=== PATIENT | male | born 1980 | race Caucasian/White ===

== ENCOUNTER 2016-09-02 11:42 | Inpatient (IN) | payer OTHER ==
[2016-09-02 13:14] VITALS: BMI 25.1
--- NOTE | 2016-09-02 15:00 | HP ---
COWS - Scale Resting Pulse: 1= [place] 81-100 Sweatin=Flushed/Facial Moisture Restless Observation: 3= Extraneous Movement Pupil Size: 2= Moderately Dilated Bone or Joint Aches: 2= Severe Diffuse Aches Runny Nose/ Eye Tearin= Runny Nose/Eyes GI Upset > 30mins: 3= Vomiting/Diarrhea Tremor Observation: 2= Slight Tremor Visible Yawning Observation: 2= >3x During Session Anxiety or Irritability: 2=Irritable/Anxious Goose Flesh Skin: 0=Smooth Skin COWS Score: 21 CIWA Score - CIWA Score Nausea/Vomitin Muscle Tremors: 3 Anxiety: 3 Agitation: 3 Paroxysmal Sweats: 2 Orientation: 0-Oriented Tacttile Disturbances: 2-Mild Itch/Numbness/Burn Auditory Disturbances: 2-Mild Harshness/Frighten Visual Disturbances: 2-Mild Sensitivity Headache: 2-Mild CIWA-Ar Total Score: 22 Admission ROS BHS - HPI Chief Complaint: i need help to stop using drugs heroin,cocaine,marijuana depenence and alcohol dependence Allergies/Adverse Reactions: Allergies Allergy/AdvReac Type Severity Reaction Status Date / Time venom-honey bee Allergy Severe Verified 09/02/16 14:48 [bee venom (honey bee)] No Known Drug Allergies Allergy Verified 09/02/16 14:48 bee stings Allergy Severe Uncoded 09/02/16 14:48 History of Present Illness: this 35 years old male with heroin,cocaine,marijuana,xanax dependence and chronic alcoholism,withdrawal symptom,last detox [facility] 07/07 several admissions in detox [place] relapsing bipolar disorder,adhd, low back pain hepatitis c treated weight loss longest period of sobriety 6 years Exam Limitations: No Limitations - Ebola screening Have you traveled outside of the country in the last 21 days: No Have you had contact with anyone from an Ebola affected area: No Have you been sick,other than usual withdrawal symptoms: No Do you have a fever: No - Review of Systems Constitutional: Chills, Diaphoresis, Loss of Appetite, Malaise, Night Sweats, Changes in sleep, Weakness, Unintentional Wgt. Loss EENT: reports: Hearing Loss, Nose Congestion Respiratory: reports: No Symptoms reported Cardiac: reports: Palpitations GI: reports: Diarrhea, Nausea, Vomiting, Abdominal cramping : reports: No Symptoms Reported Integumentary: reports: Dryness Neuro: reports: Headache, Tremors Endocrine: reports: No Symptoms Reported Hematology: reports: No Symptoms Reported Psychiatric: reports: Depressed, other (bipolar disorder) Patient History - Patient Medical History Hx Anemia: No Hx Asthma: No Hx Chronic Obstructive Pulmonary Disease (COPD): No Hx Cancer: No Hx Cardiac Disorders: No Hx Congestive Heart Failure: No Hx Hypertension: No Hx Hypercholesterolemia: No Hx Pacemaker: No HX Cerebrovascular Accident: No Hx Seizures: Yes (drug related - last 2015) Hx Dementia: No Hx Diabetes: No Hx Gastrointestinal Disorders: No Hx Liver Disease: No Hx Genitourinary Disorders: No Hx Sexually Transmitted Disorders: No Hx Renal Disease (ESRD): No Hx Thyroid Disease: No Hx Human Immunodeficiency Virus (HIV): No (NEGATIVE HX last 07/07) Hx Hepatitis C: Yes (treated - undetectable vl) Hx Depression: Yes (hospitalized as child) Hx Suicide Attempt: No Hx Bipolar Disorder: Yes Hx Schizophrenia: No Other Medical History: no suicidal,no homicidal - Patient Surgical History Past Surgical History: No Hx Neurologic Surgery: No Hx Cataract Extraction: No Hx Cardiac Surgery: No Hx Lung Surgery: No Hx Breast Surgery: No Hx Breast Biopsy: No Hx Abdominal Surgery: No Hx Appendectomy: No Hx Cholecystectomy: No Hx Genitourinary Surgery: No Hx Section: No Hx Orthopedic Surgery: No Other Surgical History: Sx for abscess Drainage + TISSUE REMOVAL R hand in 04/04 Anesthesia Reaction: No - PPD History Previous Implant?: Yes Documented Results: Negative w/o proof Implanted On Prior [facility] Admission?: Yes Date: 07/14/15 Results: 0 MM PPD to be Administered?: Yes - Smoking Cessation Smoking history: Current every day smoker Have you smoked in the past 12 months: Yes Aproximately how many cigarettes per day: 20 Cigars Per Day: 0 Hx Chewing Tobacco Use: No Initiated information on smoking cessation: Yes 'Breaking Loose' booklet given: 09/02/16 - Substance & Tx. History Hx Alcohol Use: Yes Hx Substance Use: Yes Substance Use Type: Alcohol, Cocaine, Heroin, Marijuana, Tranquilizers Hx Substance Use Treatment: Yes ([facility] 07/07) - Substances Abused Heroin Route: Injection Frequency: Daily Amount used: 30 BAGS Age of first use: 16 Date of Last Use: 09/02/16 Alcohol Route: Oral Frequency: Daily Amount used: 6-15 BEERS Age of first use: 6 Date of Last Use: 09/02/16 Cocaine Route: Injection Frequency: 3-6 times per week Amount used: $100 Age of first use: 11 Date of Last Use: 09/01/16 Marijuana/Hashish Route: Smoking Frequency: 1-3 times last 30 days Amount used: $40 Age of first use: 8 Date of Last Use: 08/19/16 Alprazolam (Xanax) Route: Oral Frequency: 3-6 times per week Amount used: 4-6mg Age of first use: 15 Date of Last Use: 08/31/16 Family Disease History - Family Disease History Family Disease History: Heart Disease: Mother (hx CVA - alive), Other: Mother Admission Physical Exam S - Vital Signs Vital Signs: Vital Signs - 24 hr 09/02/16 13:11 Temperature 97.9 F Pulse Rate 85 Respiratory 18 Rate Blood Pressure 122/76 - Physical General Appearance: Yes: Moderate Distress, Tremorous, Irritable, Sweating, Anxious HEENTM: Yes: Hearing grossly Normal, Normal ENT Inspection, Pharynx Normal, Nasal Congestion Respiratory: Yes: Lungs Clear, Normal Breath Sounds, No Respiratory Distress Neck: Yes: Within Normal Limits, Supple, Trachea in good position Breast: Yes: Within Normal Limits Cardiology: Yes: Within Normal Limits, Regular Rhythm, Regular Rate, S1, S2 Abdominal: Yes: Within Normal Limits, Normal Bowel Sounds, Non Tender, Flat, Soft Genitourinary: Yes: Within Normal Limits Back: Yes: Normal Inspection, Muscle Spasm Musculoskeletal: Yes: Back pain, Joint Stiffness, Muscle Pain, Muscle weakness Extremities: Yes: Within Normal Limits, Normal Capillary Refill, Normal Inspection, Normal Range of Motion, Tremors 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: Yes: grease maker head II-XII NML intact, Fully Oriented, Alert, Motor Strength 5/5 Integumentary: Yes: Dry, Track Swenson Lymphatic: Yes: Within Normal Limits - Diagnostic (1) Cannabis dependence Current Visit: No Status: Acute (2) Cocaine dependence Current Visit: No Status: Acute Qualifiers: Substance use status: uncomplicated Qualified Code(s): F14.20 - Cocaine dependence, uncomplicated (3) Opioid dependence with withdrawal Current Visit: No Status: Acute (4) Chronic back pain Current Visit: No Status: Chronic Qualifiers: Back pain location: low back pain Sciatica presence: without sciatica (5) Hepatitis C Current Visit: No Status: Chronic Qualifiers: Viral hepatitis chronicity: chronic Hepatic coma status: without hepatic coma Qualified Code(s): B18.2 - Chronic viral hepatitis C Comment: completed treatment (6) ADHD (attention deficit hyperactivity disorder) Current Visit: No Status: Suspected Qualifiers: Attention deficit-hyperactivity disorder type: other Qualified Code(s) : F90.8 - Attention-deficit hyperactivity disorder, other type (7) Bipolar disorder Current Visit: No Status: Suspected (8) Weight decreased Current Visit: Yes Status: Acute Cleared for Admission S - Detox or Rehab [facility] Level of Care: Medically Managed Detox Regimen/Protocol: Methadone/Librium S Breath Alcohol Content Breath Alcohol Content: 0 Urine Drug Screen - Results Drug Screen Negative: No Urine Drug Screen Results: RENAE-Cocaine, OPI-Opiates, TCA-Tricyclic Antidepress
[2016-09-02] MEDS ORDERED: chlordiazePOXIDE HCL 25 MG CAPSULE PO PRN (15:14)
[2016-09-02] MEDS ORDERED: MAGNESIUM HYDROX 2400MG/30ML ORAL SUSPENSION 30 ML CUP PO PRN (15:15)
[2016-09-02] MEDS ORDERED: LOPERAMIDE HCL 2 MG CAPSULE PO PRN (15:15)
[2016-09-02] MEDS ORDERED: P-EPHED 60MG/TRIPROLIDI 2.5MG TABLET PO PRN (15:15)
[2016-09-02] MEDS ORDERED: hydrOXYzine PAMOATE 50 MG CAPSULE (FP) PO PRN (15:15)
[2016-09-02] MEDS ORDERED: ACETAMINOPHEN 325 MG TABLET (FP) PO PRN (15:15)
[2016-09-02] MEDS ORDERED: guaiFENesin/D-METHORPHAN HB 10 ML UNIT-DOSE CUPS PO PRN (15:15)
[2016-09-02] MEDS ORDERED: MAGNESIUM CITRATE 300 ML BOTTLE PO PRN (15:15)
[2016-09-02] MEDS ORDERED: MAG HYDROX/AL HYDROX/SIMETH 30 ML UNIT-DOSE CUP PO PRN (15:15)
[2016-09-02] MEDS ORDERED: diphenhydrAMINE HCL 50 MG CAPSULE PO PRN (15:15)
[2016-09-02] MEDS ORDERED: MENTHOL/PHENOL 1 EACH UD MM PRN (15:15)
[2016-09-02] MEDS ORDERED: IBUPROFEN 400 MG TABLET (FP) PO PRN (15:15)
[2016-09-02] MEDS ORDERED: chlordiazePOXIDE HCL 25 MG CAPSULE PO ONE (16:30)
[2016-09-02] MEDS ORDERED: METHADONE HCL 10 MG TABLET (FOR DETOX USE ONLY) PO ONE ×2 (16:30→23:00)
[2016-09-02] MEDS: chlordiazePOXIDE HCL 25 MG CAPSULE PO SCH ×2 (16:59→23:16)
[2016-09-02 18:38] LABS: URINE APPEARANCE CLEAR; URINE BILIRUBIN NEGATIVE (NEGATIVE); URINE BLOOD NEGATIVE (NEGATIVE); URINE COLOR DKYELLOW; URINE GLUCOSE (UA) NEGATIVE (NEGATIVE); URINE KETONE TRACE (NEGATIVE); URINE LEUK ESTERASE NEGATIVE (NEGATIVE); URINE NITRITE NEGATIVE (NEGATIVE); URINE UROBILINOGEN 2.0 E.U/dl E.U./dl (0.2-1.0)
[2016-09-02 18:40] LABS: URINE PROTEIN 1+ (NEGATIVE)
[2016-09-02 18:45] LABS: URINE HYALINE CAST 7 /lpf; URINE MUCUS MANY; URINE RBC 1 /hpf (0-3); URINE WBC 1 /hpf (3-5)
[2016-09-02] MEDS: cloNIDine HCL 0.1 MG TABLET PO SCH (22:55)
[2016-09-02] MEDS: THIAMINE HCL 100 MG TABLET (FP) PO SCH (22:55)
[2016-09-03] MEDS: chlordiazePOXIDE HCL 25 MG CAPSULE PO SCH ×4 (05:46→22:53)
--- NOTE | 2016-09-03 08:47 | CONSULT ---
[facility] Psychiatric Consult - Data Date of interview: 09/03/16 Admission source: [facility] Identifying data: This is 35 years old female with history of Bipolar disorder, history of psychuatric admission, intoxicated with: Alcohol, Cannabus,m Opioids , Cocaine,m Xanax and PCP abuse history Substance Abuse History: - Smoking Cessation. Smoking history: Current every day smoker. Have you smoked in the past 12 months: Yes. Aproximately how many cigarettes per day: 20. Cigars Per Day: 0. Hx Chewing Tobacco Use: No. Initiated information on smoking cessation: Yes. 'Breaking Loose' booklet given : 09/02/16. - Substance & Tx. History. Hx Alcohol Use: Yes. Hx Substance Use : Yes. Substance Use Type: Alcohol, Cocaine, Heroin, Marijuana, Tranquilizers. Hx Substance Use Treatment: Yes ([facility] 07/07) Medical History: Weight loss, LBP, HepC+, Seizure history Psychiatric History: Patient reprots history of Bipolar dfisorder with most recent psychiatric admission on2014 at [facility]. Patient reports taking : Seroquel 200mg po qhs. Ambien 10mg po qhs Physical/Sexual Abuse/Trauma History: Denies Additional Comment: Seroquel 200mg po qhs. Ambien 10mg po qhs Mental Status Exam - Mental Status Exam Alert and Oriented to: Person Cognitive Function: Fair Patient Appearance: Unkempt Mood: Sad Affect: Flat Patient Behavior: Sedated Speech Pattern: Delayed Voice Loudness: Mildly Soft/Quiet Thought Process: Circumstantial Thought Disorder: Being Controlled Hallucinations: Denies Suicidal Ideation: Denies Homicidal Ideation: Denies Insight/Judgement: Fair Sleep: Difficulty falling asleep Appetite: Weight loss Muscle strength/Tone: Normal Gait/Station: Shuffling Additional Comments: Seroquel 200mg po qhs. Ambien 10mg po qhs Psychiatric Findings - Problem List ([place] 1, 2,3) (1) Alcohol dependence with uncomplicated withdrawal Current Visit: No Status: Acute (2) Cannabis dependence Current Visit: No Status: Acute (3) Cocaine dependence Current Visit: No Status: Acute Qualifiers: Substance use status: uncomplicated Qualified Code(s): F14.20 - Cocaine dependence, uncomplicated (4) Opioid dependence with withdrawal Current Visit: No Status: Acute (5) Substance induced mood disorder Current Visit: No Status: Acute (6) Substance-induced sleep disorder Current Visit: No Status: Acute (7) Benzodiazepine dependence Current Visit: No Status: Chronic (8) Nicotine dependence Current Visit: No Status: Chronic Qualifiers: Nicotine product type: cigarettes Substance use status: uncomplicated Qualified Code(s): F17.210 - Nicotine dependence, cigarettes, uncomplicated (9) ADHD (attention deficit hyperactivity disorder) Current Visit: No Status: Suspected Qualifiers: Attention deficit-hyperactivity disorder type: other Qualified Code(s) : F90.8 - Attention-deficit hyperactivity disorder, other type (10) Bipolar disorder Current Visit: No Status: Suspected - Initial Treatment Plan Initial Treatment Plan: Seroquel 200mg po qhs. Ambien 10mg po qhs
[2016-09-03 09:59] LABS: MCH 28.3 pg (25.7-33.7); MCHC 33.2 g/dl (32.0-35.9); MEAN CELL VOLUME 85.2 fl (80-96); MEAN PLT VOLUME 8.9 fl (7.5-11.1); PLATELET COUNT 210 K/MM3 (134-434); RDW 15.4 % (11.9-15.9); WHITE BLOOD COUNT 9.3 K/mm3 (4.0-10.0)
[2016-09-03] MEDS ORDERED: METHADONE HCL 10 MG TABLET (FOR DETOX USE ONLY) PO SCH (10:00)
[2016-09-03 10:19] LABS: ALBUMIN 3.9 g/dl (3.4-5.0); ALK PHOS 72 U/L (45-117); ANION GAP 8 (8-16); BILIRUBIN,TOTAL 0.5 mg/dL (0.2-1.0); CALCIUM 9.5 mg/dL (8.5-10.1); CO2 30 mmol/L (21-32); CREATININE 0.9 mg/dL (0.7-1.3); GLUCOSE,RANDOM 132 mg/dL (74-106); SGOT/AST 15 U/L (15-37); SGPT/ALT 21 U/L (12-78); TOT PROT 7.2 g/dl (6.4-8.2)
[2016-09-03] MEDS: PRENATAL VITAMINS W/ FOLIC ACID TABLET (FP) PO SCH (10:41)
[2016-09-03] MEDS: cloNIDine HCL 0.1 MG TABLET PO SCH ×2 (10:41→22:52)
--- NOTE | 2016-09-03 11:52 | PN ---
[facility] CIWA - CIWA Score Nausea/Vomitin-No Nausea/No Vomiting Muscle Tremors: 4-Moderate,w/Arms Extend Anxiety: 3 Agitation: 4-Moderately Restless Paroxysmal Sweats: 3 Orientation: 0-Oriented Tacttile Disturbances: 0-None Auditory Disturbances: 0-None Visual Disturbances: 0-None Headache: 1-Very Mild CIWA-Ar Total Score: 15 BHS COWS - Scale Resting Pulse: 0= [place] 80 or Below Sweatin=Flushed/Facial Moisture Restless Observation: 1= Difficult to Sit Still Pupil Size: 0= Normal to Room Light Bone or Joint Aches: 2= Severe Diffuse Aches Runny Nose/ Eye Tearin= Runny Nose/Eyes GI Upset > 30mins: 2= Nausea/Diarrhea Tremor Observation of Outstretched Hands: 2= Slight Tremor Visible Yawning Observation: 2= >3x During Session Anxiety or Irritability: 2=Irritable/Anxious Goose Flesh Skin: 0=Smooth Skin COWS Score: 15 [facility] Progress Note (SOAP) Subjective: body aches sweats shakes interrupted sleep agitation Objective: 09/03/16 11:51 Vital Signs Temperature 97.7 F 09/03/16 09:52 Pulse Rate 69 09/03/16 09:52 Respiratory Rate 20 09/03/16 09:52 Blood Pressure 106/65 09/03/16 09:52 O2 Sat by Pulse Oximetry (%) Laboratory Tests 09/02/16 09/03/16 09/03/16 17:45 06:00 06:00 WBC 9.3 RBC 5.17 Hgb 14.6 Hct 44.1 MCV 85.2 MCHC 33.2 RDW 15.4 D Plt Count 210 MPV 8.9 Sodium 141 Potassium 4.0 Chloride 103 Carbon Dioxide 30 Anion Gap 8 BUN 16 D Creatinine 0.9 Creat Clearance w eGFR > 60 Random Glucose 132 H Calcium 9.5 Total Bilirubin 0.5 D AST 15 D ALT 21 Alkaline Phosphatase 72 Total Protein 7.2 Albumin 3.9 Urine Color Dkyellow Urine Appearance Clear Urine pH 5.0 Ur Specific [place] 1.029 Urine Protein 1+ H Urine Glucose (UA) Negative Urine Ketones Trace H Urine Blood Negative Urine Nitrite Negative Urine Bilirubin Negative Urine Urobilinogen 2.0 e.u/dl Ur Leukocyte Esterase Negative Urine RBC 1 Urine WBC 1 Ur Epithelial Cells Rare Hyaline Casts 7 Urine Mucus Many awake/alert ambulating no acute distress Assessment: 09/03/16 11:51 withdrawal sx Plan: continue detox increase fluids motrin/tylenol prn
[2016-09-03] MEDS: LIDOCAINE 5% TOPICAL PATCH TP SCH (13:14)
--- NOTE | 2016-09-03 15:30 | EKG ---
Test Reason : Blood Pressure : / mmHG Vent. Rate : 080 BPM Atrial Rate : 080 BPM P-R Int : 164 ms QRS Dur : 082 ms QT Int : 380 ms P-R-T Axes : 061 050 063 degrees QTc Int : 438 ms POOR DATA QUALITY, INTERPRETATION MAY BE ADVERSELY AFFECTED NORMAL SINUS RHYTHM NORMAL ECG NO PREVIOUS ECGS AVAILABLE Confirmed by JOSE BOURNE MD ([id number]) on 09/03/2016 3:30:19 PM Referred By: Confirmed By:JOSE BOURNE MD
[2016-09-03] MEDS: THIAMINE HCL 100 MG TABLET (FP) PO SCH (22:52)
[2016-09-03] MEDS: QUEtiapine FUMARATE 200 MG TABLET PO SCH (22:52)
[2016-09-03] MEDS: ZOLPIDEM TARTRATE 10 MG TABLET (PARK CARE ONLY) PO PRN (22:56)
[2016-09-04] MEDS: chlordiazePOXIDE HCL 25 MG CAPSULE PO SCH ×2 (05:42→10:49)
[2016-09-04] MEDS ORDERED: METHADONE HCL 5 MG TABLET (FOR DETOX USE ONLY) PO SCH (10:00)
--- NOTE | 2016-09-04 10:15 | PN ---
[facility] CIWA - CIWA Score Nausea/Vomitin Muscle Tremors: 3 Anxiety: 3 Agitation: 3 Paroxysmal Sweats: 1-Minimal Palms Moist Orientation: 0-Oriented Tacttile Disturbances: 1-Very Mild Itch/Numbness Auditory Disturbances: 1-Very Mild Visual Disturbances: 1-Very Mild Sensitivity Headache: 2-Mild CIWA-Ar Total Score: 18 BHS COWS - Scale Resting Pulse: 0= [place] 80 or Below Sweatin= Chills/Flushing Restless Observation: 3= Extraneous Movement Pupil Size: 1= Pupils >than Normal Bone or Joint Aches: 2= Severe Diffuse Aches Runny Nose/ Eye Tearin= Runny Nose/Eyes GI Upset > 30mins: 2= Nausea/Diarrhea Tremor Observation of Outstretched Hands: 2= Slight Tremor Visible Yawning Observation: 1= 1-2x During Session Anxiety or Irritability: 2=Irritable/Anxious Goose Flesh Skin: 0=Smooth Skin COWS Score: 16 S Progress Note (SOAP) Subjective: ALERT,IRRITABLE,ANXIOUS,INTERRUPTED SLEEP,TREMOR,PAIN IN THE BODY AND BACK Objective: 09/04/16 10:12 Vital Signs Temperature 97.2 F L 09/04/16 06:00 Pulse Rate 55 L 09/04/16 06:00 Respiratory Rate 18 09/04/16 06:00 Blood Pressure 113/67 09/04/16 06:00 O2 Sat by Pulse Oximetry (%) EKG NSR,NORMAL ECG Laboratory Last Values WBC 9.3 K/mm3 (4.0-10.0) 09/03/16 06:00 RBC 5.17 M/mm3 (4.00-5.60) 09/03/16 06:00 Hgb 14.6 GM/dL (11.7-16.9) 09/03/16 06:00 Hct 44.1 % (35.4-49) 09/03/16 06:00 MCV 85.2 fl (80-96) 09/03/16 06:00 MCHC 33.2 g/dl (32.0-35.9) 09/03/16 06:00 RDW 15.4 % (11.9-15.9) D 09/03/16 06:00 Plt Count 210 K/MM3 (134-434) 09/03/16 06:00 MPV 8.9 fl (7.5-11.1) 09/03/16 06:00 Sodium 141 mmol/L (136-145) 09/03/16 06:00 Potassium 4.0 mmol/L (3.5-5.1) 09/03/16 06:00 Chloride 103 mmol/L (98-107) 09/03/16 06:00 Carbon Dioxide 30 mmol/L (21-32) 09/03/16 06:00 Anion Gap 8 (8-16) 09/03/16 06:00 BUN 16 mg/dL (7-18) D 09/03/16 06:00 Creatinine 0.9 mg/dL (0.7-1.3) 09/03/16 06:00 Creat Clearance w eGFR > 60 (>60) 09/03/16 06:00 Random Glucose 132 mg/dL (74-106) H 09/03/16 06:00 Calcium 9.5 mg/dL (8.5-10.1) 09/03/16 06:00 Total Bilirubin 0.5 mg/dL (0.2-1.0) D 09/03/16 06:00 AST 15 U/L (15-37) D 09/03/16 06:00 ALT 21 U/L (12-78) 09/03/16 06:00 Alkaline Phosphatase 72 U/L (45-117) 09/03/16 06:00 Total Protein 7.2 g/dl (6.4-8.2) 09/03/16 06:00 Albumin 3.9 g/dl (3.4-5.0) 09/03/16 06:00 Urine Color Dkyellow 09/02/16 17:45 Urine Appearance Clear 09/02/16 17:45 Urine pH 5.0 (5.0-8.0) 09/02/16 17:45 Ur Specific [place] 1.029 (1.001-1.035) 09/02/16 17:45 Urine Protein 1+ (NEGATIVE) H 09/02/16 17:45 Urine Glucose (UA) Negative (NEGATIVE) 09/02/16 17:45 Urine Ketones Trace (NEGATIVE) H 09/02/16 17:45 Urine Blood Negative (NEGATIVE) 09/02/16 17:45 Urine Nitrite Negative (NEGATIVE) 09/02/16 17:45 Urine Bilirubin Negative (NEGATIVE) 09/02/16 17:45 Urine Urobilinogen 2.0 e.u/dl E.U./dl (0.2-1.0) 09/02/16 17:45 Ur Leukocyte Esterase Negative (NEGATIVE) 09/02/16 17:45 Urine RBC 1 /hpf (0-3) 09/02/16 17:45 Urine WBC 1 /hpf (3-5) 09/02/16 17:45 Ur Epithelial Cells Rare /hpf (FEW) 09/02/16 17:45 Hyaline Casts 7 /lpf 09/02/16 17:45 Urine Mucus Many 09/02/16 17:45 RPR Titer Nonreactive (NONREACTIVE) 09/03/16 06:00 Hepatitis C Antibody >11.0 s/co ratio (0.0-0.9) H 09/02/16 06:00 PATIENT KNOWN CASE OFHEPATITIS C Assessment: 09/04/16 10:14 WITHDRAWAL SYMPTOM Plan: CONTINUE DETOX,BGM MONITORING,INITIAL GLUCOSE IS 132
[2016-09-04] MEDS: cloNIDine HCL 0.1 MG TABLET PO SCH ×2 (10:48→23:02)
[2016-09-04] MEDS: PRENATAL VITAMINS W/ FOLIC ACID TABLET (FP) PO SCH (10:48)
[2016-09-04] MEDS: LIDOCAINE 5% TOPICAL PATCH TP SCH (10:49)
[2016-09-04] MEDS ORDERED: IBUPROFEN 400 MG TABLET (FP) PO PRN (12:02)
[2016-09-04] MEDS: CYCLOBENZAPRINE HCL 10 MG TABLET (FP) PO PRN ×2 (13:25→23:02)
[2016-09-04] MEDS: GABAPENTIN 300 MG CAPSULE (FP) PO SCH ×2 (13:25→23:02)
[2016-09-04] MEDS: chlordiazePOXIDE 5 MG CAPSULE PO SCH ×2 (18:34→23:02)
[2016-09-04] MEDS: THIAMINE HCL 100 MG TABLET (FP) PO SCH (23:02)
[2016-09-04] MEDS: ZOLPIDEM TARTRATE 10 MG TABLET (PARK CARE ONLY) PO PRN (23:02)
[2016-09-04] MEDS: QUEtiapine FUMARATE 200 MG TABLET PO SCH (23:02)
[2016-09-05] MEDS: chlordiazePOXIDE 5 MG CAPSULE PO SCH (05:43)
[2016-09-05] MEDS: GABAPENTIN 300 MG CAPSULE (FP) PO SCH (05:49)
[2016-09-05] MEDS: CYCLOBENZAPRINE HCL 10 MG TABLET (FP) PO PRN (08:02)
[2016-09-05] MEDS ORDERED: CYCLOBENZAPRINE HCL 10 MG TABLET (FP) PO ONE (08:15)
--- NOTE | 2016-09-05 09:29 | PN ---
[facility] Progress Note Note: PATIENT MISBEHAVE THROWING THE FOOD AT OTHER CLIENT,DISRUPTIVE THE UNIT, SECURITIES CALLED TO UNIT,ESCORTED OFF UNIT BY SECURITIES ADMINISTRATIVE DISCHARGE
--- NOTE | 2016-09-05 09:35 | DS ---
[facility] Detox Discharge Summary Admission Date: 09/02/16 Discharge Date: 09/05/16 - History Present History: Alcohol Dependence, Cocaine Dependence, Opioid Dependence Additional Comments: PATIENT MISBEHAVE,DISRUPTIVE,THROWING THE FOOD AT OTHER CLIENT,SECURITEIS CALLED TO UNIT, ESCORTED OFF UNIT BY SECURITIES,ADMINISTRATIVE DISCHARGE Pertinent Past History: HEPATITIS C CHRONIC LOW BACK PAIN ADHD WEIGHT LOSS BIPOLAR DISORDER - Physical Exam Results Vital Signs: Vital Signs Temperature 98.5 F 09/05/16 06:41 Pulse Rate 87 09/05/16 06:41 Respiratory Rate 16 09/05/16 06:41 Blood Pressure 105/60 09/05/16 06:41 O2 Sat by Pulse Oximetry (%) Pertinent Admission Physical Exam Findings: WITHDRAWAL SYMPTOM - Medication Discharge Medications: Ambulatory Orders Quetiapine Fumarate [Seroquel -] 200 mg PO HS #30 tab 09/03/16 Zolpidem Tartrate [Ambien] 10 mg PO HS #14 tablet MDD 10 09/03/16 - Diagnosis (1) Cannabis dependence Current Visit: No Status: Acute (2) Cocaine dependence Current Visit: No Status: Acute Qualifiers: Substance use status: uncomplicated Qualified Code(s): F14.20 - Cocaine dependence, uncomplicated (3) Opioid dependence with withdrawal Current Visit: No Status: Acute (4) Chronic back pain Current Visit: No Status: Chronic Qualifiers: Back pain location: low back pain Sciatica presence: without sciatica (5) Hepatitis C Current Visit: No Status: Chronic Qualifiers: Viral hepatitis chronicity: chronic Hepatic coma status: without hepatic coma Qualified Code(s): B18.2 - Chronic viral hepatitis C (6) ADHD (attention deficit hyperactivity disorder) Current Visit: No Status: Suspected Qualifiers: Attention deficit-hyperactivity disorder type: other Qualified Code(s) : F90.8 - Attention-deficit hyperactivity disorder, other type (7) Bipolar disorder Current Visit: No Status: Suspected (8) Weight decreased Current Visit: Yes Status: Acute - AMA Did Patient Leave Against Medical Advice: No
[2016-09-05 10:35] VITALS: BP 123/76; PULSE 94; TEMP 96.9
[2016-09-05] MEDS ORDERED: CYCLOBENZAPRINE HCL 10 MG TABLET (FP) PO SCH (14:00)
[2016-09-05] MEDS ORDERED: chlordiazePOXIDE HCL 10 MG CAPSULE PO SCH (17:00)
[2016-09-06] MEDS ORDERED: METHADONE HCL 10 MG TABLET (FOR DETOX USE ONLY) PO SCH (10:00)
[2016-09-07] MEDS ORDERED: METHADONE HCL 5 MG TABLET (FOR DETOX USE ONLY) PO SCH (06:00)
== END 2016-09-05 09:16 | disposition home or self-care (01) | DRG 773 ==
LOC: YASAS 11:42 → Y6N 15:07
PROVIDERS: ADMIT Internal Medicine Addiction Medicine; ATTEND Internal Medicine Addiction Medicine
PROC: HZ2ZZZZ Detoxification Services for Substance Abuse Treatment (ICD-10-PCS; principal; 2016-09-05)
DX: F11.23 Opioid dependence with withdrawal (principal); F13.20 Sedative, hypnotic or anxiolytic dependence, uncomplicated; F14.20 Cocaine dependence, uncomplicated; F12.20 Cannabis dependence, uncomplicated; F19.24 Other psychoactive substance dependence with psychoactive substance-induced mood disorder; F19.282 Other psychoactive substance dependence with psychoactive substance-induced sleep disorder; F31.9 Bipolar disorder, unspecified; F90.8 Attention-deficit hyperactivity disorder, other type; B18.2 Chronic viral hepatitis C; M54.5 Low back pain; G89.29 Other chronic pain; R63.4 Abnormal weight loss; Z68.25 Body mass index [BMI] 25.0-25.9, adult
CPT/HCPCS: 36415; 80053; 81003; 81015; 85027; 86593; 87522; 93005; 93010

== ENCOUNTER 2017-08-09 14:20 | Inpatient (IN) | payer OTHER ==
[2017-08-09 14:40] VITALS: BMI 25.5
--- NOTE | 2017-08-09 17:08 | HP ---
COWS - Scale Resting Pulse: 0= [place] 80 or Below Sweatin= No chills or Flushing Restless Observation: 3= Extraneous Movement Pupil Size: 1= Pupils >than Normal Bone or Joint Aches: 1= Mild Discomfort Runny Nose/ Eye Tearin= Constantly Teary/Runny GI Upset > 30mins: 0= None Tremor Observation: 2= Slight Tremor Visible Yawning Observation: 2= >3x During Session Anxiety or Irritability: 1=Feels Anxious/Irritable Goose Flesh Skin: 3=Piloerection COWS Score: 17 CIWA Score - CIWA Score Nausea/Vomitin-Mild Nausea/No Vomiting Muscle Tremors: 3 Anxiety: 3 Agitation: 1-Slight > Activity Paroxysmal Sweats: 2 Orientation: 0-Oriented Tacttile Disturbances: 0-None Auditory Disturbances: 0-None Visual Disturbances: 0-None Headache: 3-Moderate (reports ESTES 11/28) CIWA-Ar Total Score: 13 Admission ROS S - HPI Chief Complaint: withdrawal symptoms Allergies/Adverse Reactions: Allergies Allergy/AdvReac Type Severity Reaction Status Date / Time venom-honey bee Allergy Severe Verified 08/09/17 17:20 [bee venom (honey bee)] No Known Drug Allergies Allergy Verified 08/09/17 17:20 bee stings Allergy Uncoded 08/09/17 17:20 History of Present Illness: 36 yo male with hx of IV heroin, IV cocaine, nicotine, Benzos, Marijuana, nicotine and alcohol dependence is here seeking detox. Patient reports smoking cigarettes since age of 11 yo, currently smokes 1 pack per day. Patient has hx of multiple admissions to detox with relapses. Patient reports the following medical hx: bipolar d/o, anxiety, depression, ADHD, Hep C and treated, chronic back pain, weight loss. Reports poor out patient medical follow up and seeks care the ED. Longest period of sobriety 7 years. Last detox [facility] March 2017. Denies suicidal / homicidal ideation or suicide attempts. Exam Limitations: No Limitations - Ebola screening Have you traveled outside of the country in the last 21 days: No Have you had contact with anyone from an Ebola affected area: No Have you been sick,other than usual withdrawal symptoms: No Do you have a fever: No - Review of Systems Constitutional: Chills, Loss of Appetite, Changes in sleep (on average sleeps abouyt 3 hours per night), Unintentional Wgt. Loss (reports 30 lb weight loss in the last three months) EENT: reports: Tearing, Nose Congestion, Other (uses dentures top and bottom) Respiratory: reports: No Symptoms reported Cardiac: reports: No Symptoms Reported GI: reports: Constipated (last BM 2 days ago), Poor Appetite, Poor Fluid Intake : reports: No Symptoms Reported Musculoskeletal: reports: Back Pain (chronic back pain, hx of herniated dics), Joint Pain Integumentary: reports: No Symptoms Reported Neuro: reports: No Symptoms reported, Headache Endocrine: reports: Change in Weight Hematology: reports: No Symptoms Reported Psychiatric: reports: Orientated x3, Anxious, Depressed Other Systems: Reviewed and Negative Patient History - Patient Medical History Hx Anemia: No Hx Asthma: No Hx Chronic Obstructive Pulmonary Disease (COPD): No Hx Cancer: No Hx Cardiac Disorders: No Hx Congestive Heart Failure: No Hx Hypertension: No Hx Hypercholesterolemia: No Hx Pacemaker: No HX Cerebrovascular Accident: No Hx Seizures: Yes (drug related - last 2015) Hx Dementia: No Hx Diabetes: No Hx Gastrointestinal Disorders: No Hx Liver Disease: Yes (Hep C and treated ) Hx Genitourinary Disorders: No Hx Sexually Transmitted Disorders: No Hx Renal Disease (ESRD): No Hx Thyroid Disease: No Hx Human Immunodeficiency Virus (HIV): No (NEGATIVE, last tested three months ago ) Hx Hepatitis C: Yes (treated - undetectable vl) Hx Depression: Yes (hospitalized as child) Hx Suicide Attempt: No Hx Bipolar Disorder: Yes (reports no psych tx in years ) Hx Schizophrenia: No - Patient Surgical History Past Surgical History: No Hx Neurologic Surgery: No Hx Cataract Extraction: No Hx Cardiac Surgery: No Hx Lung Surgery: No Hx Breast Surgery: No Hx Breast Biopsy: No Hx Abdominal Surgery: No Hx Appendectomy: No Hx Cholecystectomy: No Hx Genitourinary Surgery: No Hx Section: No Hx Orthopedic Surgery: No Other Surgical History: Sx for abscess Drainage + TISSUE REMOVAL R hand in 04/04 , Tocillectomy Anesthesia Reaction: No - PPD History Previous Implant?: Yes Date: 09/04/16 Results: 0 MM PPD to be Administered?: No - Reproductive History Patient is a Female of Child Bearing Age (11 -55 yrs old): No - Smoking Cessation Smoking history: Current every day smoker Have you smoked in the past 12 months: Yes Aproximately how many cigarettes per day: 20 Cigars Per Day: 0 Hx Chewing Tobacco Use: No Initiated information on smoking cessation: Yes 'Breaking Loose' booklet given: 08/09/17 - Substance & Tx. History Hx Substance Use Treatment: Yes ([facility] March 2017) Family Disease History - Family Disease History Family Disease History: Heart Disease: Mother (hx CVA - alive), Other: Mother Admission Physical Exam BHS - Vital Signs Vital Signs: Vital Signs - 24 hr 08/09/17 14:37 Temperature 95.8 F L Pulse Rate 70 Respiratory 20 Rate Blood Pressure 122/83 - Physical General Appearance: Yes: Disheveled, Thin, Anxious HEENTM: Yes: Hearing grossly Normal, Normal ENT Inspection, Normocephalic, Normal Voice, Pharynx Normal, Tm's normal Respiratory: Yes: Chest Non-Tender, Lungs Clear, Normal Breath Sounds, No Respiratory Distress, No Accessory Muscle Use Neck: Yes: No masses,lesions,Nodules, Trachea in good position Breast: Yes: Breast Exam Deferred Cardiology: Yes: Regular Rhythm, Regular Rate, S1, S2 Abdominal: Yes: Normal Bowel Sounds, Non Tender, Flat, Soft Genitourinary: Yes: Within Normal Limits Back: Yes: Normal Inspection Musculoskeletal: Yes: full range of Motion, Gait Steady, Pelvis Stable Extremities: Yes: Normal Capillary Refill, Normal Inspection, Normal Range of Motion, Non-Tender 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: 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: 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, Fully Oriented, Alert, Motor Strength 5/5, Depressed Affect Integumentary: Yes: Normal Color, Dry, Warm, Track Swenson (in multiple healing stages) Lymphatic: Yes: Within Normal Limits - Addiitonal Findings: Patient decline HIV testing today - Diagnostic (1) Depressed mood Current Visit: Yes Status: Acute (2) Cannabis dependence Current Visit: Yes Status: Chronic (3) Cocaine dependence Current Visit: Yes Status: Chronic Qualifiers: Substance use status: uncomplicated Qualified Code(s): F14.20 - Cocaine dependence, uncomplicated (4) Opioid dependence with withdrawal Current Visit: Yes Status: Acute (5) Weight decreased Current Visit: Yes Status: Chronic (6) Benzodiazepine dependence Current Visit: No Status: Chronic (7) Chronic back pain Current Visit: Yes Status: Chronic Qualifiers: Back pain location: low back pain Sciatica presence: without sciatica (8) Hepatitis C Current Visit: Yes Status: Chronic Qualifiers: Viral hepatitis chronicity: chronic Hepatic coma status: without hepatic coma Qualified Code(s): B18.2 - Chronic viral hepatitis C Comment: completed treatment (9) Nicotine dependence Current Visit: Yes Status: Chronic Qualifiers: Nicotine product type: cigarettes Substance use status: uncomplicated Qualified Code(s): F17.210 - Nicotine dependence, cigarettes, uncomplicated (10) ADHD (attention deficit hyperactivity disorder) Current Visit: Yes Status: Suspected Qualifiers: Attention deficit-hyperactivity disorder type: other Qualified Code(s): F90.8 - Attention-deficit hyperactivity disorder, other type (11) Bipolar disorder Current Visit: No Status: Suspected Cleared for Admission S - Detox or Rehab S Level of Care: Medically Managed Detox Regimen/Protocol: Methadone/Librium BHS Breath Alcohol Content Breath Alcohol Content: 0 Urine Drug Screen - Results Drug Screen Negative: No Urine Drug Screen Results: RENAE-Cocaine, OPI-Opiates, BZO-Benzodiazepines, OXY- Oxycodone
[2017-08-09] MEDS ORDERED: LOPERAMIDE HCL 2 MG CAPSULE PO PRN (17:32)
[2017-08-09] MEDS ORDERED: MAGNESIUM CITRATE 300 ML BOTTLE PO PRN (17:32)
[2017-08-09] MEDS ORDERED: MAG HYDROX/AL HYDROX/SIMETH 30 ML UNIT-DOSE CUP PO PRN (17:32)
[2017-08-09] MEDS ORDERED: IBUPROFEN 400 MG TABLET (FP) PO PRN (17:32)
[2017-08-09] MEDS ORDERED: MAGNESIUM HYDROX 2400MG/30ML ORAL SUSPENSION 30 ML CUP PO PRN (17:32)
[2017-08-09] MEDS ORDERED: NICOTINE POLACRILEX 2 MG GUM BC PRN (17:32)
[2017-08-09] MEDS ORDERED: MENTHOL/PHENOL 1 EACH UD MM PRN (17:32)
[2017-08-09] MEDS ORDERED: chlordiazePOXIDE HCL 25 MG CAPSULE PO PRN (17:32)
[2017-08-09] MEDS ORDERED: P-EPHED 60MG/TRIPROLIDI 2.5MG TABLET PO PRN (17:32)
[2017-08-09] MEDS ORDERED: ACETAMINOPHEN 325 MG TABLET (FP) PO PRN (17:32)
[2017-08-09] MEDS ORDERED: hydrOXYzine PAMOATE 50 MG CAPSULE (FP) PO PRN (17:32)
[2017-08-09] MEDS ORDERED: guaiFENesin/D-METHORPHAN HB 10 ML UNIT-DOSE CUPS PO PRN (17:32)
[2017-08-09] MEDS ORDERED: METHADONE HCL 10 MG TABLET (FOR DETOX USE ONLY) PO ONE ×2 (18:00→23:00)
[2017-08-09] MEDS ORDERED: chlordiazePOXIDE HCL 25 MG CAPSULE PO ONE (18:00)
[2017-08-09] MEDS: chlordiazePOXIDE HCL 25 MG CAPSULE PO SCH ×2 (18:35→22:26)
[2017-08-09] MEDS: LIDOCAINE 5% TOPICAL PATCH TP SCH (18:36)
[2017-08-09 21:43] LABS: URINE APPEARANCE TURBID; URINE BILIRUBIN NEGATIVE (NEGATIVE); URINE BLOOD NEGATIVE (NEGATIVE); URINE COLOR AMBER; URINE GLUCOSE (UA) NEGATIVE (NEGATIVE); URINE KETONE TRACE (NEGATIVE); URINE LEUK ESTERASE NEGATIVE (NEGATIVE); URINE NITRITE NEGATIVE (NEGATIVE)
[2017-08-09 21:49] LABS: URINE PROTEIN 1+ (NEGATIVE)
[2017-08-09] MEDS ORDERED: LIDOCAINE PATCH REMOVAL MC SCH (22:00)
[2017-08-09] MEDS ORDERED: THIAMINE HCL 100 MG TABLET (FP) PO SCH (22:00)
[2017-08-09 23:23] LABS: EPI CELLS FEW /HPF (FEW); URINE BACTERIA RARE /hpf (NONE SEEN)
[2017-08-10] MEDS: chlordiazePOXIDE HCL 25 MG CAPSULE PO SCH ×2 (05:42→10:42)
--- NOTE | 2017-08-10 08:58 | EKG ---
Test Reason : Blood Pressure : / mmHG Vent. Rate : 057 BPM Atrial Rate : 057 BPM P-R Int : 154 ms QRS Dur : 082 ms QT Int : 450 ms P-R-T Axes : 053 050 052 degrees QTc Int : 438 ms SINUS BRADYCARDIA OTHERWISE NORMAL ECG WHEN COMPARED WITH ECG OF 02-SEP-2016 14:57, NO SIGNIFICANT CHANGE WAS FOUND Confirmed by Leighton Conroy MD ([id number]) on 08/10/2017 8:58:11 AM Referred By: Confirmed By:Leighton Conroy MD
[2017-08-10 09:36] LABS: HEMATOCRIT 39.1 % (35.4-49); HEMOGLOBIN 12.8 GM/dL (11.7-16.9); MCH 28.1 pg (25.7-33.7); MCHC 32.8 g/dl (32.0-35.9); MEAN CELL VOLUME 85.5 fl (80-96); MEAN PLT VOLUME 8.4 fl (7.5-11.1); PLATELET COUNT 225 K/MM3 (134-434); RBC 4.57 M/mm3 (4.00-5.60); RDW 14.8 % (11.9-15.9); WHITE BLOOD COUNT 6.2 K/mm3 (4.0-10.0)
[2017-08-10 09:52] LABS: ALBUMIN 3.2 g/dl (3.4-5.0); ANION GAP 4 (8-16); BLOOD UREA NITROGEN 16 mg/dL (7-18); CALCIUM 8.5 mg/dL (8.5-10.1); CHLORIDE 109 mmol/L (98-107); CO2 27 mmol/L (21-32); GLUCOSE,RANDOM 83 mg/dL (74-106); POTASSIUM 4.3 mmol/L (3.5-5.1); SODIUM 140 mmol/L (136-145)
[2017-08-10 09:58] LABS: ALK PHOS 61 U/L (45-117); BILIRUBIN,TOTAL 0.4 mg/dL (0.2-1.0); CREATININE 0.8 mg/dL (0.7-1.3); SGOT/AST 9 U/L (15-37); SGPT/ALT 14 U/L (12-78); TOT PROT 5.8 g/dl (6.4-8.2)
[2017-08-10] MEDS ORDERED: METHADONE HCL 10 MG TABLET (FOR DETOX USE ONLY) PO SCH (10:00)
[2017-08-10] MEDS ORDERED: PRENATAL VITAMINS W/ FOLIC ACID TABLET (FP) PO SCH (10:00)
[2017-08-10] MEDS ORDERED: NICOTINE 21 MG/24 HOURS TOPICAL PATCH TD SCH (10:00)
[2017-08-10 10:23] VITALS: BP 131/84; PULSE 61; TEMP 97.5
--- NOTE | 2017-08-10 10:31 | PN ---
[facility] CIWA - CIWA Score Nausea/Vomitin Muscle Tremors: 3 Anxiety: 3 Agitation: 3 Paroxysmal Sweats: 1-Minimal Palms Moist Orientation: 0-Oriented Tacttile Disturbances: 1-Very Mild Itch/Numbness Auditory Disturbances: 1-Very Mild Visual Disturbances: 0-None Headache: 2-Mild CIWA-Ar Total Score: 17 BHS COWS - Scale Resting Pulse: 0= [place] 80 or Below Sweatin= Chills/Flushing Restless Observation: 3= Extraneous Movement Pupil Size: 1= Pupils >than Normal Bone or Joint Aches: 2= Severe Diffuse Aches Runny Nose/ Eye Tearin= Runny Nose/Eyes GI Upset > 30mins: 2= Nausea/Diarrhea Tremor Observation of Outstretched Hands: 2= Slight Tremor Visible Yawning Observation: 1= 1-2x During Session Anxiety or Irritability: 2=Irritable/Anxious Goose Flesh Skin: 0=Smooth Skin COWS Score: 16 S Progress Note (SOAP) Subjective: ALERT,IRRITABLE,ANXIOUS,INTERRUPTED SLEEP,TREMOR,PAIN IN THE BODY AND BACK Objective: 08/10/17 10:29 Vital Signs Temperature 97.5 F L 08/10/17 10:21 Pulse Rate 61 08/10/17 10:21 Respiratory Rate 18 08/10/17 10:21 Blood Pressure 131/84 08/10/17 10:21 O2 Sat by Pulse Oximetry (%) EKG SINUS BRADYCARDIA 57/MIN NO CHEST PAIN,NO SOB,NO DIZZINESS Laboratory Last Values WBC 6.2 K/mm3 (4.0-10.0) D 08/10/17 06:00 RBC 4.57 M/mm3 (4.00-5.60) 08/10/17 06:00 Hgb 12.8 GM/dL (11.7-16.9) D 08/10/17 06:00 Hct 39.1 % (35.4-49) 08/10/17 06:00 MCV 85.5 fl (80-96) 08/10/17 06:00 MCH 28.1 pg (25.7-33.7) 08/10/17 06:00 MCHC 32.8 g/dl (32.0-35.9) 08/10/17 06:00 RDW 14.8 % (11.9-15.9) 08/10/17 06:00 Plt Count 225 K/MM3 (134-434) 08/10/17 06:00 MPV 8.4 fl (7.5-11.1) 08/10/17 06:00 Sodium 140 mmol/L (136-145) 08/10/17 06:00 Potassium 4.3 mmol/L (3.5-5.1) 08/10/17 06:00 Chloride 109 mmol/L (98-107) H 08/10/17 06:00 Carbon Dioxide 27 mmol/L (21-32) 08/10/17 06:00 Anion Gap 4 (8-16) L 08/10/17 06:00 BUN 16 mg/dL (7-18) 08/10/17 06:00 Creatinine 0.8 mg/dL (0.7-1.3) 08/10/17 06:00 Creat Clearance w eGFR > 60 (>60) 08/10/17 06:00 Random Glucose 83 mg/dL (74-106) D 08/10/17 06:00 Calcium 8.5 mg/dL (8.5-10.1) 08/10/17 06:00 Total Bilirubin 0.4 mg/dL (0.2-1.0) 08/10/17 06:00 AST 9 U/L (15-37) L D 08/10/17 06:00 ALT 14 U/L (12-78) D 08/10/17 06:00 Alkaline Phosphatase 61 U/L (45-117) 08/10/17 06:00 Total Protein 5.8 g/dl (6.4-8.2) L 08/10/17 06:00 Albumin 3.2 g/dl (3.4-5.0) L 08/10/17 06:00 Urine Color Alice 08/09/17 18:29 Urine Appearance Turbid 08/09/17 18:29 Urine pH 5.0 (5.0-8.0) 08/09/17 18: Ur Specific [place] 1.028 (1.001-1.035) 08/09/17 18: Urine Protein 1+ (NEGATIVE) H 08/09/17 18:29 Urine Glucose (UA) Negative (NEGATIVE) 08/09/17 18: Urine Ketones Trace (NEGATIVE) H 08/09/17 18:29 Urine Blood Negative (NEGATIVE) 08/09/17 18:29 Urine Nitrite Negative (NEGATIVE) 08/09/17 18:29 Urine Bilirubin Negative (NEGATIVE) 08/09/17 18:29 Urine Urobilinogen 2.0 mg/dL (0.2-1.0) 08/09/17 18:29 Ur Leukocyte Esterase Negative (NEGATIVE) 08/09/17 18:29 Urine WBC (Auto) 1 /hpf (3-5) 08/09/17 18:29 Urine RBC (Auto) 2 /hpf (0-3) 08/09/17 18:29 Ur Epithelial Cells Few /HPF (FEW) 08/09/17 18:29 Urine Bacteria Rare /hpf (NONE SEEN) 08/09/17 18:29 Assessment: 08/10/17 10:30 WITHDRAWAL SYMPTOM Plan: CONTINUE DETOX
[2017-08-10] MEDS ORDERED: CYCLOBENZAPRINE HCL 10 MG TABLET (FP) PO PRN (10:32)
[2017-08-10] MEDS ORDERED: cloNIDine HCL 0.1 MG TABLET PO SCH (10:45)
--- NOTE | 2017-08-10 11:09 | PN ---
[facility] Progress Note Note: PATIENT DID NOT WANT TO COMPLETE TREATMENT,SEEN BY COUNSELOR,SIGNED RELEASE AMA, ENCOURAGE PATIENT TO STAY WITH NO AVAILABLE,LEFT UNIT IN STABLE CONDITION
[2017-08-10] MEDS: LIDOCAINE 5% TOPICAL PATCH TP SCH (11:14)
--- NOTE | 2017-08-10 11:15 | DS ---
[facility] Detox Discharge Summary Admission Date: 08/09/17 Discharge Date: 08/10/17 - History Present History: Cannabis Dependence, Cocaine Dependence, Opioid Dependence, Sedative Dependence Additional Comments: PATIENT DID NOT WANT TO COMPLETE TREATMENT,SEEN BY COUNSELOR,SIGNED RELEASE AMA, ENCOURAGE PATIENT TO STAY WITH NO AVAIL Pertinent Past History: HEPATITIS C CHRONIC LOW BACK PAIN - Physical Exam Results Vital Signs: Vital Signs Temperature 97.5 F L 08/10/17 10:21 Pulse Rate 61 08/10/17 10:21 Respiratory Rate 18 08/10/17 10:21 Blood Pressure 131/84 08/10/17 10:21 O2 Sat by Pulse Oximetry (%) Pertinent Admission Physical Exam Findings: WITHDRAWAL SIGNS AND SYMPTOM - Diagnosis (1) Opioid dependence with withdrawal Current Visit: Yes Status: Acute (2) Cannabis dependence Current Visit: Yes Status: Chronic (3) Chronic back pain Current Visit: Yes Status: Chronic Qualifiers: Back pain location: low back pain Sciatica presence: without sciatica (4) Cocaine dependence Current Visit: Yes Status: Chronic Qualifiers: Substance use status: uncomplicated Qualified Code(s): F14.20 - Cocaine dependence, uncomplicated (5) Hepatitis C Current Visit: Yes Status: Chronic Qualifiers: Viral hepatitis chronicity: chronic Hepatic coma status: without hepatic coma Qualified Code(s): B18.2 - Chronic viral hepatitis C (6) Benzodiazepine dependence Current Visit: No Status: Chronic - AMA Did Patient Leave Against Medical Advice: Yes
[2017-08-10] MEDS ORDERED: FLU VACCINE QUAD 60 MCG/0.5 ML (MDV 17-18) IM ONE (12:00)
[2017-08-10] MEDS ORDERED: chlordiazePOXIDE HCL 25 MG CAPSULE PO SCH (17:00)
[2017-08-11] MEDS ORDERED: METHADONE HCL 5 MG TABLET (FOR DETOX USE ONLY) PO SCH (10:00)
[2017-08-11] MEDS ORDERED: chlordiazePOXIDE 5 MG CAPSULE PO SCH (17:00)
[2017-08-12] MEDS ORDERED: chlordiazePOXIDE HCL 10 MG CAPSULE PO SCH (17:00)
[2017-08-13] MEDS ORDERED: METHADONE HCL 10 MG TABLET (FOR DETOX USE ONLY) PO SCH (10:00)
[2017-08-14] MEDS ORDERED: METHADONE HCL 5 MG TABLET (FOR DETOX USE ONLY) PO SCH (06:00)
== END 2017-08-10 11:15 | disposition left against medical advice (07) | DRG 770 ==
LOC: YASAS 14:20 → Y6N 17:50
PROVIDERS: ADMIT Internal Medicine; ATTEND Internal Medicine
PROC: HZ2ZZZZ Detoxification Services for Substance Abuse Treatment (ICD-10-PCS; principal; 2017-08-09)
DX: F11.23 Opioid dependence with withdrawal (principal); F13.20 Sedative, hypnotic or anxiolytic dependence, uncomplicated; F14.20 Cocaine dependence, uncomplicated; F12.20 Cannabis dependence, uncomplicated; F17.210 Nicotine dependence, cigarettes, uncomplicated; F31.9 Bipolar disorder, unspecified; F90.9 Attention-deficit hyperactivity disorder, unspecified type; B18.2 Chronic viral hepatitis C; M54.5 Low back pain; G89.29 Other chronic pain; R63.4 Abnormal weight loss; Z68.25 Body mass index [BMI] 25.0-25.9, adult
CPT/HCPCS: 36415; 80053; 81003; 81015; 85027; 86593; 93005; 93010; J0735

== ENCOUNTER 2017-10-06 09:57 | Inpatient (IN) | payer OTHER ==
[2017-10-06 10:39] VITALS: BMI 24.3
--- NOTE | 2017-10-06 11:41 | HP ---
COWS - Scale Resting Pulse: 0= [place] 80 or Below Sweatin= Chills/Flushing Restless Observation: 1= Difficult to Sit Still Pupil Size: 1= Pupils >than Normal Bone or Joint Aches: 1= Mild Discomfort Runny Nose/ Eye Tearin= Runny Nose/Eyes GI Upset > 30mins: 2= Nausea/Diarrhea Tremor Observation: 2= Slight Tremor Visible Yawning Observation: 1= 1-2x During Session Anxiety or Irritability: 2=Irritable/Anxious Goose Flesh Skin: 0=Smooth Skin COWS Score: 13 CIWA Score - CIWA Score Nausea/Vomitin Muscle Tremors: 3 Anxiety: 3 Agitation: 3 Paroxysmal Sweats: No Perspiration Orientation: 0-Oriented Tacttile Disturbances: 2-Mild Itch/Numbness/Burn Auditory Disturbances: 0-None Visual Disturbances: 0-None Headache: 2-Mild CIWA-Ar Total Score: 16 Admission [facility] Chief Complaint: alcohol, benzodiazepine and heroin withdrawal sx Allergies/Adverse Reactions: Allergies Allergy/AdvReac Type Severity Reaction Status Date / Time venom-honey bee Allergy Severe Verified 08/09/17 17:20 [bee venom (honey bee)] Fish Containing Products Allergy Mild Difficulty Verified 10/06/17 11:14 Breathing No Known Drug Allergies Allergy Verified 08/09/17 17:20 bee stings Allergy Uncoded 08/09/17 17:20 History of Present Illness: 36 yo m with h/o polysubstane use requesting inpateitn detoxfiication from alcohol, benzodiazepines and heroin becasue of withdrwal sx. reports h/o withdrawal seizures and DTs in past. no SI at this time PMHX anxiety, depression adn insomna thirsty. Exam Limitations: No Limitations - Ebola screening Have you traveled outside of the country in the last 21 days: No Have you had contact with anyone from an Ebola affected area: No Have you been sick,other than usual withdrawal symptoms: No Do you have a fever: No - Review of Systems Constitutional: Chills, Diaphoresis, Night Sweats, Changes in sleep, Unintentional Wgt. Loss EENT: reports: Tearing, Ear Pain Respiratory: reports: No Symptoms reported, Cough (smokers cough), SOB with Exertion, Wheezing Cardiac: reports: No Symptoms Reported GI: reports: Diarrhea, Nausea, Poor Appetite, Poor Fluid Intake, Indigestion, Abdominal cramping : reports: No Symptoms Reported Musculoskeletal: reports: Back Pain (chronic from old injury) Integumentary: reports: Flushing, Sweating, Other ([poor skin trugor) Neuro: reports: Headache, Numbness, Seizure (w), Tingling, Tremors Endocrine: reports: Increased Thirst Hematology: reports: No Symptoms Reported Psychiatric: reports: Judgement Intact, Mood/Affect Appropiate, Orientated x3, Anxious, Depressed Other Systems: Reviewed and Negative Patient History - Patient Medical History Hx Anemia: No Hx Asthma: No Hx Chronic Obstructive Pulmonary Disease (COPD): No Hx Cancer: No Hx Cardiac Disorders: No Hx Congestive Heart Failure: No Hx Hypertension: No Hx Hypercholesterolemia: No Hx Pacemaker: No HX Cerebrovascular Accident: No Hx Seizures: Yes (drug related - last 2015) Hx Dementia: No Hx Diabetes: No Hx Gastrointestinal Disorders: No Hx Liver Disease: Yes (Hep C and treated ) Hx Genitourinary Disorders: No Hx Sexually Transmitted Disorders: No Hx Renal Disease (ESRD): No Hx Thyroid Disease: No Hx Human Immunodeficiency Virus (HIV): No (NEGATIVE, last tested three months ago ) Hx Hepatitis C: Yes (treated - undetectable vl) Hx Depression: Yes (hospitalized as child) Hx Suicide Attempt: No (no si at this time) Hx Bipolar Disorder: Yes (reports no psych tx in years ) Hx Schizophrenia: No - Patient Surgical History Past Surgical History: No Hx Neurologic Surgery: No Hx Cataract Extraction: No Hx Cardiac Surgery: No Hx Lung Surgery: No Hx Breast Surgery: No Hx Breast Biopsy: No Hx Abdominal Surgery: No Hx Appendectomy: No Hx Cholecystectomy: No Hx Genitourinary Surgery: No Hx Section: No Hx Orthopedic Surgery: No Other Surgical History: Sx for abscess Drainage + TISSUE REMOVAL R hand in 04/04 , Tonsillectomy 7y Anesthesia Reaction: No - PPD History Previous Implant?: Yes Documented Results: Negative w/proof Implanted On Prior [facility] Admission?: Yes Date: 09/04/16 Results: 0 mm PPD to be Administered?: Yes - Reproductive History Patient is a Female of Child Bearing Age (11 -55 yrs old): No Patient : No - Smoking Cessation Smoking history: Current every day smoker Have you smoked in the past 12 months: Yes Aproximately how many cigarettes per day: 20 Cigars Per Day: 0 Hx Chewing Tobacco Use: No Initiated information on smoking cessation: Yes 'Breaking Loose' booklet given: 10/06/17 - Substance & Tx. History Hx Alcohol Use: Yes Hx Substance Use: Yes Substance Use Type: Alcohol, Cocaine, Heroin, Marijuana, Opiates, Prescribed, Tranquilizers Hx Substance Use Treatment: Yes (detox [facility] in [past) - Substances Abused Heroin Route: Injection Frequency: Daily Amount used: 25-35 bags Age of first use: 15 Date of Last Use: 10/06/17 Benzodiazepine (Klonopin) Route: Oral Frequency: 3-6 times per week Amount used: 3-5 mg Age of first use: 12 Date of Last Use: 10/06/17 Alcohol Route: Oral Frequency: 3-6 times per week Amount used: 1 6pk beer/ 1 liqour Age of first use: 10 Date of Last Use: 10/06/17 Cocaine Route: Injection Frequency: 3-6 times per week Amount used: $20-$40 Age of first use: 14 Date of Last Use: 10/04/17 Marijuana/Hashish Route: Smoking Frequency: 3-6 times per week Amount used: $200-$500 Age of first use: 11 Date of Last Use: 09/29/17 Family Disease History - Family Disease History Family Disease History: Heart Disease: Mother (hx CVA - alive), Other: Mother Admission Physical Exam S - Vital Signs Vital Signs: Vital Signs - 24 hr 10/06/17 10:37 Temperature 95.5 F L Pulse Rate 57 L Respiratory 18 Rate Blood Pressure 105/72 - Physical General Appearance: Yes: Nourished, Appropriately Dressed, Disheveled, Mild Distress, Thin, Tremorous, Irritable, Sweating, Anxious HEENTM: Yes: EOMI, Hearing grossly Normal, Normocephalic, Normal Voice, [place], Pharynx Normal, Nasal Congestion, Rhinorrhea Respiratory: Yes: Within Normal Limits, Chest Non-Tender, Lungs Clear, Normal Breath Sounds Neck: Yes: Within Normal Limits, No masses,lesions,Nodules, Supple, Trachea in good position Breast: Yes: Breast Exam Deferred Cardiology: Yes: Within Normal Limits, Regular Rhythm, Regular Rate, S1, S2 Abdominal: Yes: Normal Bowel Sounds, Non Tender, Flat, Soft, Increased Bowel Sounds Genitourinary: Yes: Within Normal Limits Back: Yes: Normal Inspection, Muscle Spasm Musculoskeletal: Yes: full range of Motion, Gait Steady, Pelvis Stable, Back pain Extremities: Yes: Normal Capillary Refill, Normal Range of Motion, Non-Tender, Tremors 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, Fully Oriented, Alert, Motor Strength 5/5, Normal Response, Depressed Affect Integumentary: Yes: Normal Color, Warm, Diaphoresis, Moist, Track Swenson (no cellultis and abscesses noted or reported, hashad in past) Lymphatic: Yes: Within Normal Limits - Addiitonal Findings: wtihdrawal sx, dehyddration - Diagnostic (1) Alcohol dependence with uncomplicated withdrawal Current Visit: No Status: Acute (2) Opioid dependence with withdrawal Current Visit: No Status: Acute (3) Substance induced mood disorder Current Visit: No Status: Acute (4) Substance-induced sleep disorder Current Visit: No Status: Acute (5) Cannabis dependence Current Visit: No Status: Chronic (6) Chronic back pain Current Visit: No Status: Chronic Qualifiers: Back pain location: low back pain Sciatica presence: without sciatica (7) Cocaine dependence Current Visit: No Status: Chronic Qualifiers: Substance use status: uncomplicated Qualified Code(s): F14.20 - Cocaine dependence, uncomplicated (8) Hepatitis C Current Visit: No Status: Chronic Qualifiers: Viral hepatitis chronicity: chronic Hepatic coma status: without hepatic coma Qualified Code(s): B18.2 - Chronic viral hepatitis C Comment: completed treatment (9) Nicotine dependence Current Visit: No Status: Chronic Qualifiers: Nicotine product type: cigarettes Substance use status: uncomplicated Qualified Code(s): F17.210 - Nicotine dependence, cigarettes, uncomplicated (10) Weight decreased Current Visit: No Status: Chronic (11) ADHD (attention deficit hyperactivity disorder) Current Visit: No Status: Suspected Qualifiers: Attention deficit-hyperactivity disorder type: other Qualified Code(s): F90.8 - Attention-deficit hyperactivity disorder, other type (12) Bipolar disorder Current Visit: No Status: Suspected (13) Sedative, hypnotic or anxiolytic dependence with withdrawal, uncomplicated Current Visit: Yes Status: Acute Cleared for Admission S - Detox or Rehab S Level of Care: Medically Managed Detox Regimen/Protocol: Methadone/Librium S Breath Alcohol Content Breath Alcohol Content: 0 Urine Drug Screen - Results Drug Screen Negative: No Urine Drug Screen Results: OPI-Opiates, BZO-Benzodiazepines, MTD-Methadone
[2017-10-06] MEDS ORDERED: guaiFENesin/D-METHORPHAN HB 10 ML UNIT-DOSE CUPS PO PRN (11:48)
[2017-10-06] MEDS ORDERED: hydrOXYzine PAMOATE 50 MG CAPSULE (FP) PO PRN (11:48)
[2017-10-06] MEDS ORDERED: chlordiazePOXIDE HCL 25 MG CAPSULE PO PRN (11:48)
[2017-10-06] MEDS ORDERED: MENTHOL/PHENOL 1 EACH UD MM PRN (11:48)
[2017-10-06] MEDS ORDERED: NICOTINE POLACRILEX 2 MG GUM BUC PRN (11:48)
[2017-10-06] MEDS ORDERED: ACETAMINOPHEN 325 MG TABLET (FP) PO PRN (11:48)
[2017-10-06] MEDS ORDERED: MAG HYDROX/AL HYDROX/SIMETH 30 ML UNIT-DOSE CUP PO PRN (11:48)
[2017-10-06] MEDS ORDERED: MAGNESIUM HYDROX 2400MG/30ML ORAL SUSPENSION 30 ML CUP PO PRN (11:48)
[2017-10-06] MEDS ORDERED: IBUPROFEN 400 MG TABLET (FP) PO PRN (11:48)
[2017-10-06] MEDS ORDERED: MAGNESIUM CITRATE 300 ML BOTTLE PO PRN (11:48)
[2017-10-06] MEDS ORDERED: P-EPHED 60MG/TRIPROLIDI 2.5MG TABLET PO PRN (11:48)
[2017-10-06] MEDS ORDERED: LOPERAMIDE HCL 2 MG CAPSULE PO PRN (11:48)
[2017-10-06] MEDS ORDERED: chlordiazePOXIDE HCL 25 MG CAPSULE PO ONE (12:00)
[2017-10-06] MEDS ORDERED: METHADONE HCL 10 MG TABLET (FOR DETOX USE ONLY) PO ONE ×2 (12:00→23:00)
[2017-10-06] MEDS ORDERED: NICOTINE 21 MG/24 HOURS TOPICAL PATCH TD SCH (12:00)
[2017-10-06] MEDS: chlordiazePOXIDE HCL 25 MG CAPSULE PO SCH ×2 (18:14→22:13)
[2017-10-06 19:50] LABS: URINE APPEARANCE TURBID; URINE BILIRUBIN NEGATIVE (<2.0 mg/dL); URINE BLOOD NEGATIVE (NEGATIVE); URINE COLOR YELLOW; URINE GLUCOSE (UA) NEGATIVE (NEGATIVE); URINE KETONE TRACE (NEGATIVE); URINE LEUK ESTERASE NEGATIVE (NEGATIVE); URINE NITRITE NEGATIVE (NEGATIVE); URINE PROTEIN NEGATIVE (NEGATIVE)
[2017-10-06] MEDS ORDERED: MELATONIN 5 MG TABLETS PO PRN (22:00)
[2017-10-06] MEDS ORDERED: THIAMINE HCL 100 MG TABLET (FP) PO SCH (22:00)
[2017-10-07] MEDS: chlordiazePOXIDE HCL 25 MG CAPSULE PO SCH (05:02)
[2017-10-07 09:04] VITALS: BP 124/79; PULSE 62; TEMP 97.6
[2017-10-07] MEDS ORDERED: PRENATAL VITAMINS W/ FOLIC ACID TABLET (FP) PO SCH (10:00)
[2017-10-07] MEDS ORDERED: METHADONE HCL 10 MG TABLET (FOR DETOX USE ONLY) PO SCH (10:00)
--- NOTE | 2017-10-07 10:54 | PN ---
S Progress Note Note: Psychiatric nurse practitioner note: Rig Superintendent entered patient's room to discuss psychiatric consultation. As per nursing staff, patient left AMA.
--- NOTE | 2017-10-07 11:20 | PN ---
[facility] CIWA - CIWA Score Nausea/Vomitin-No Nausea/No Vomiting Muscle Tremors: 3 Anxiety: 5 Agitation: 4-Moderately Restless Paroxysmal Sweats: 3 Orientation: 0-Oriented Tacttile Disturbances: 3-Moderate Itch/Numb/Burn Auditory Disturbances: 0-None Visual Disturbances: 0-None Headache: 0-None Present CIWA-Ar Total Score: 18 BHS COWS - Scale Resting Pulse: 0= [place] 80 or Below Sweatin= Chills/Flushing Restless Observation: 1= Difficult to Sit Still Pupil Size: 0= Normal to Room Light Bone or Joint Aches: 2= Severe Diffuse Aches Runny Nose/ Eye Tearin= None GI Upset > 30mins: 1= Stomach Cramp Tremor Observation of Outstretched Hands: 2= Slight Tremor Visible Yawning Observation: 1= 1-2x During Session Anxiety or Irritability: 4=Extreme Anxiety Goose Flesh Skin: 3=Piloerection COWS Score: 15 [facility] Progress Note (SOAP) Subjective: Sweating, Body Aches, Anxious, Tremors, Stomach Cramping. Objective: PATIENT A & O X 3, OBSERVED AMBULATING ON UNIT. NO ACUTE DISTRESS. 10/07/17 11:19 Vital Signs Temperature 97.6 F 10/07/17 09:04 Pulse Rate 62 10/07/17 09:04 Respiratory Rate 18 10/07/17 09:04 Blood Pressure 124/79 10/07/17 09:04 O2 Sat by Pulse Oximetry (%) Laboratory Tests 10/06/17 17:30 Urine Color Yellow Urine Appearance Turbid Urine pH 5.0 Ur Specific [place] 1.030 Urine Protein Negative Urine Glucose (UA) Negative Urine Ketones Trace H Urine Blood Negative Urine Nitrite Negative Urine Bilirubin Negative Urine Urobilinogen 2.0 Ur Leukocyte Esterase Negative UA RESULTS NOTED. OTHER ADMISSION LAB RESULTS PENDING. 10/07/17 11:20 Assessment: 10/07/17 11:20 WITHDRAWAL SYMPTOMS. Plan: CONTINUE DETOX. INCREASE DAILY PO FLUID INTAKE.
[2017-10-07 11:23] LABS: HEMOGLOBIN 14.5 GM/dL (11.7-16.9); MCH 28.5 pg (25.7-33.7); MCHC 33.7 g/dl (32.0-35.9); MEAN CELL VOLUME 84.7 fl (80-96); MEAN PLT VOLUME 9.1 fl (7.5-11.1); PLATELET COUNT 205 K/MM3 (134-434); RBC 5.08 M/mm3 (4.00-5.60); RDW 14.8 % (11.9-15.9); WHITE BLOOD COUNT 6.8 K/mm3 (4.0-10.0)
--- NOTE | 2017-10-07 11:23 | DS ---
[facility] Detox Discharge Summary Admission Date: 10/06/17 Discharge Date: 10/07/17 - History Present History: Alcohol Dependence, Cannabis Dependence, Cocaine Dependence, Opioid Dependence, Sedative Dependence Additional Comments: PATIENT DOES NOT WISH TO STAY TO COMPLETE DETOX REGIMEN. RISKS OF LEAVING DETOX UNIT AGAINST MEDICAL ADVICE AND PRIOR TO COMPLETION OF DETOX REGIMEN EXPLAINED TO PATIENT. PATIENT ADVISED TO GO IMMEDIATELY TO NEAREST ER SHOULD ANY INTOLERABLE DETOX SYMPTOMS DEVELOP AT ANY TIME. PATIENT LEFT DETOX UNIT IN STABLE MEDICAL CONDITION. Pertinent Past History: [place] Dependence, Depression, History of Seizures (Substance use related), Back Pain, Hep C (Treated), Bipolar Disorder, ADHD. - Physical Exam Results Vital Signs: Vital Signs Temperature 97.6 F 10/07/17 09:04 Pulse Rate 62 10/07/17 09:04 Respiratory Rate 18 10/07/17 09:04 Blood Pressure 124/79 10/07/17 09:04 O2 Sat by Pulse Oximetry (%) Pertinent Admission Physical Exam Findings: WITHDRAWAL SYMPTOMS. Laboratory Tests 10/06/17 17:30 Urine Color Yellow Urine Appearance Turbid Urine pH 5.0 Ur Specific [place] 1.030 Urine Protein Negative Urine Glucose (UA) Negative Urine Ketones Trace H Urine Blood Negative Urine Nitrite Negative Urine Bilirubin Negative Urine Urobilinogen 2.0 Ur Leukocyte Esterase Negative UA RESULTS NOTED. OTHER ADMISSION LAB RESULTS NOTED. - Treatment Hospital Course: Detoxed Safely - Diagnosis (1) Alcohol dependence with uncomplicated withdrawal Status: Acute (2) Opioid dependence with withdrawal Status: Acute (3) Sedative, hypnotic or anxiolytic dependence with withdrawal, uncomplicated Status: Acute (4) Substance induced mood disorder Status: Acute (5) Substance-induced sleep disorder Status: Acute (6) Cannabis dependence Status: Chronic (7) Chronic back pain Status: Chronic Qualifiers: Back pain location: low back pain Back pain laterality: unspecified Sciatica presence: without sciatica Qualified Code(s): M54.5 - Low back pain; G89.29 - Other chronic pain; G89.29 - Other chronic pain (8) Cocaine dependence Status: Chronic Qualifiers: Substance use status: uncomplicated Qualified Code(s): F14.20 - Cocaine dependence, uncomplicated (9) Hepatitis C Status: Chronic Qualifiers: Viral hepatitis chronicity: chronic Hepatic coma status: without hepatic coma Qualified Code(s): B18.2 - Chronic viral hepatitis C (10) Nicotine dependence Status: Chronic Qualifiers: Nicotine product type: cigarettes Substance use status: uncomplicated Qualified Code(s): F17.210 - Nicotine dependence, cigarettes, uncomplicated (11) Weight decreased Status: Chronic (12) ADHD (attention deficit hyperactivity disorder) Status: Suspected Qualifiers: Attention deficit-hyperactivity disorder type: other Qualified Code(s): F90.8 - Attention-deficit hyperactivity disorder, other type (13) Bipolar disorder Status: Suspected Qualifiers: Active/Remission status: remission status unspecified Qualified Code(s): F31.9 - Bipolar disorder, unspecified - AMA Did Patient Leave Against Medical Advice: Yes (PATIENT DID WISH TO STAY TO COMPLETE DETOX REGIMEN.)
--- NOTE | 2017-10-07 11:27 | EKG ---
Test Reason : Blood Pressure : / mmHG Vent. Rate : 058 BPM Atrial Rate : 058 BPM P-R Int : 160 ms QRS Dur : 086 ms QT Int : 464 ms P-R-T Axes : 056 042 049 degrees QTc Int : 455 ms SINUS BRADYCARDIA OTHERWISE NORMAL ECG WHEN COMPARED WITH ECG OF 09-AUG-2017 18:35, NO SIGNIFICANT CHANGE WAS FOUND Confirmed by JOSE BOURNE MD ([id number]) on 10/07/2017 11:26:56 AM Referred By: Confirmed By:JOSE BOURNE MD
[2017-10-07 11:32] LABS: CHLORIDE 107 mmol/L (98-107); POTASSIUM 3.5 mmol/L (3.5-5.1); SODIUM 142 mmol/L (136-145)
[2017-10-07 11:48] LABS: ALBUMIN 3.9 g/dl (3.4-5.0); ALK PHOS 70 U/L (45-117); ANION GAP 6 (8-16); BILIRUBIN,TOTAL 0.4 mg/dL (0.2-1.0); BLOOD UREA NITROGEN 15 mg/dL (7-18); CALCIUM 9.3 mg/dL (8.5-10.1); CO2 29 mmol/L (21-32); CREATININE 0.8 mg/dL (0.7-1.3); GLUCOSE,RANDOM 114 mg/dL (74-106); SGOT/AST 9 U/L (15-37); SGPT/ALT 10 U/L (12-78); TOT PROT 7.1 g/dl (6.4-8.2)
[2017-10-07] MEDS ORDERED: chlordiazePOXIDE HCL 25 MG CAPSULE PO SCH (17:00)
[2017-10-08] MEDS ORDERED: METHADONE HCL 5 MG TABLET (FOR DETOX USE ONLY) PO SCH (10:00)
[2017-10-08] MEDS ORDERED: chlordiazePOXIDE 5 MG CAPSULE PO SCH (17:00)
[2017-10-09] MEDS ORDERED: chlordiazePOXIDE HCL 10 MG CAPSULE PO SCH (17:00)
[2017-10-10] MEDS ORDERED: METHADONE HCL 10 MG TABLET (FOR DETOX USE ONLY) PO SCH (10:00)
[2017-10-11] MEDS ORDERED: METHADONE HCL 5 MG TABLET (FOR DETOX USE ONLY) PO SCH (06:00)
== END 2017-10-07 09:45 | disposition left against medical advice (07) | DRG 770 ==
LOC: YASAS 09:57 → Y3N 11:50
PROVIDERS: ADMIT Internal Medicine; ATTEND Internal Medicine
PROC: HZ2ZZZZ Detoxification Services for Substance Abuse Treatment (ICD-10-PCS; principal; 2017-10-06)
DX: F11.23 Opioid dependence with withdrawal (principal); F13.230 Sedative, hypnotic or anxiolytic dependence with withdrawal, uncomplicated; F10.230 Alcohol dependence with withdrawal, uncomplicated; F14.20 Cocaine dependence, uncomplicated; F12.20 Cannabis dependence, uncomplicated; F17.213 Nicotine dependence, cigarettes, with withdrawal; F31.9 Bipolar disorder, unspecified; F90.9 Attention-deficit hyperactivity disorder, unspecified type; F19.24 Other psychoactive substance dependence with psychoactive substance-induced mood disorder; F19.282 Other psychoactive substance dependence with psychoactive substance-induced sleep disorder; B18.2 Chronic viral hepatitis C; Z86.69 Personal history of other diseases of the nervous system and sense organs; R63.4 Abnormal weight loss; Z68.24 Body mass index [BMI] 24.0-24.9, adult
CPT/HCPCS: 36415; 80053; 81003; 85027; 86593; 87389; 93005; 93010

== ENCOUNTER 2017-11-10 16:23 | Inpatient (IN) | payer OTHER ==
[2017-11-10 18:46] VITALS: BMI 31.1
--- NOTE | 2017-11-10 20:14 | HP ---
COWS - Scale Resting Pulse: 0= CT 80 or Below Sweatin= Chills/Flushing Restless Observation: 5= Unable to Sit Still Pupil Size: 0= Normal to Room Light Bone or Joint Aches: 4=Acute Joint/Muscle Pain Runny Nose/ Eye Tearin= Nasal Congestion GI Upset > 30mins: 2= Nausea/Diarrhea Tremor Observation: 2= Slight Tremor Visible Yawning Observation: 0= None Anxiety or Irritability: 2=Irritable/Anxious Goose Flesh Skin: 0=Smooth Skin COWS Score: 17 CIWA Score - CIWA Score Nausea/Vomitin-No Nausea/No Vomiting Muscle Tremors: 1-None Visible, but [place] Anxiety: 1-Mildly Anxious Agitation: 3 Paroxysmal Sweats: 3 Orientation: 0-Oriented Tacttile Disturbances: 2-Mild Itch/Numbness/Burn Auditory Disturbances: 0-None Visual Disturbances: 0-None Headache: 2-Mild CIWA-Ar Total Score: 12 Admission ROS S - HPI Chief Complaint: c/o withdrawal sx's. seeking detox for polysubstance abuse Allergies/Adverse Reactions: Allergies Allergy/AdvReac Type Severity Reaction Status Date / Time venom-honey bee Allergy Severe Verified 10/07/17 00:39 [bee venom (honey bee)] Fish Containing Products Allergy Mild Difficulty Verified 10/07/17 00:39 Breathing No Known Drug Allergies Allergy Verified 10/07/17 00:39 bee stings Allergy Uncoded 10/07/17 00:39 History of Present Illness: 36 y.o. male with long hx/o benzo, opioid, and alcohol dependence here for detox. Client is known to this program. Last here 10/07/2017. referred today by his harm reduction program [facility]. reports longest clean time 5 years while incarcerated. denies si/hi and a/v hallucinations pmhx: herniated spinal disc, druh induced seizures psych: bipolar, adhd, anxiety, depression Exam Limitations: No Limitations - Ebola screening Have you traveled outside of the country in the last 21 days: No (N) Have you had contact with anyone from an Ebola affected area: No Have you been sick,other than usual withdrawal symptoms: No Do you have a fever: No - Review of Systems Constitutional: Chills, Loss of Appetite, Night Sweats, Changes in sleep, Unintentional Wgt. Loss EENT: reports: Nose Congestion, Dental Problems (dentures) Respiratory: reports: No Symptoms reported Cardiac: reports: No Symptoms Reported GI: reports: Diarrhea, Poor Appetite, Poor Fluid Intake : reports: Other (hesitancy) Musculoskeletal: reports: Back Pain, Joint Pain Integumentary: reports: No Symptoms Reported Neuro: reports: No Symptoms reported Endocrine: reports: No Symptoms Reported Hematology: reports: No Symptoms Reported Psychiatric: reports: Anxious, Depressed, other (see hpi) Other Systems: Reviewed and Negative Patient History - Patient Medical History Hx Anemia: No Hx Asthma: No Hx Chronic Obstructive Pulmonary Disease (COPD): No Hx Cancer: No Hx Cardiac Disorders: No Hx Congestive Heart Failure: No Hx Hypertension: No Hx Hypercholesterolemia: No Hx Pacemaker: No HX Cerebrovascular Accident: No Hx Seizures: Yes (drug related - last 2015) Hx Dementia: No Hx Diabetes: No Hx Gastrointestinal Disorders: No Hx Liver Disease: Yes (Hep C and treated ) Hx Genitourinary Disorders: No Hx Sexually Transmitted Disorders: No Hx Renal Disease (ESRD): No Hx Thyroid Disease: No Hx Human Immunodeficiency Virus (HIV): No Hx Hepatitis C: Yes (treated - undetectable vl) Hx Depression: Yes (hospitalized as child) Hx Suicide Attempt: No (no si at this time) Hx Bipolar Disorder: Yes (reports no psych tx in years ) Hx Schizophrenia: No - Patient Surgical History Past Surgical History: No Hx Neurologic Surgery: No Hx Cataract Extraction: No Hx Cardiac Surgery: No Hx Lung Surgery: No Hx Breast Surgery: No Hx Breast Biopsy: No Hx Abdominal Surgery: No Hx Appendectomy: No Hx Cholecystectomy: No Hx Genitourinary Surgery: No Hx Section: No Hx Orthopedic Surgery: No Other Surgical History: Sx for abscess Drainage + TISSUE REMOVAL R hand in 04/04 , Tonsillectomy 7y Anesthesia Reaction: No - PPD History Previous Implant?: Yes Documented Results: Negative w/proof Implanted On Prior R Admission?: Yes Date: 10/08/17 Results: 0 mm PPD to be Administered?: No - Smoking Cessation Smoking history: Current every day smoker Have you smoked in the past 12 months: Yes Aproximately how many cigarettes per day: 20 Cigars Per Day: 0 Hx Chewing Tobacco Use: No Initiated information on smoking cessation: Yes 'Breaking Loose' booklet given: 11/10/17 - Substance & Tx. History Hx Alcohol Use: Yes Hx Substance Use: Yes Substance Use Type: Alcohol, Cocaine, Heroin, Tranquilizers (xanax) Hx Substance Use Treatment: Yes ([facility]) - Substances Abused heroin Route: Injection Frequency: Daily Amount used: 20 bags Age of first use: 16 Date of Last Use: 11/10/17 xanax Route: Oral Frequency: 3-6 times per week Amount used: 6mg Age of first use: 29 Date of Last Use: 11/08/17 beer/liquor Frequency: Daily Amount used: 4-24 oz/1/2 pint Age of first use: 10 Date of Last Use: 11/09/17 cocaine Route: Injection Frequency: Daily Amount used: 3gms Age of first use: 10 Date of Last Use: 11/10/17 Family Disease History - Family Disease History Family Disease History: Heart Disease: Mother (hx CVA - alive), Other: Mother Admission Physical Exam [facility] - Vital Signs Vital Signs: Vital Signs - 24 hr 11/10/17 18:45 Temperature 98.7 F Pulse Rate 73 Respiratory 18 Rate Blood Pressure 126/84 - Physical General Appearance: Yes: Appropriately Dressed, Mild Distress, Tremorous (felt) , Sweating (flushed face), Anxious HEENTM: Yes: EOMI, Normocephalic, Normal Voice, [place], Pharynx Normal, Other (top /bottom dentures) Respiratory: Yes: Chest Non-Tender, Lungs Clear, Normal Breath Sounds, No Respiratory Distress, No Accessory Muscle Use Neck: Yes: No masses,lesions,Nodules, Supple, Trachea in good position Breast: Yes: Breast Exam Deferred Cardiology: Yes: Regular Rhythm, Regular Rate, S1, S2 Abdominal: Yes: Normal Bowel Sounds, Non Tender, Flat, Soft Genitourinary: Yes: Within Normal Limits Back: Yes: Normal Inspection Musculoskeletal: Yes: full range of Motion, Gait Steady Extremities: Yes: Normal Range of Motion, Non-Tender, Tremors 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: Yes: Fully Oriented, Alert, Motor Strength 5/5 Integumentary: Yes: Warm, Track Swenson (bue), Other (flushed face) Lymphatic: Yes: Within Normal Limits - Diagnostic (1) Dry mucous membranes Current Visit: Yes Status: Acute (2) Alcohol dependence with uncomplicated withdrawal Current Visit: Yes Status: Acute (3) Opioid dependence with withdrawal Current Visit: Yes Status: Acute (4) Sedative, hypnotic or anxiolytic dependence with withdrawal, uncomplicated Current Visit: Yes Status: Acute (5) Substance-induced sleep disorder Current Visit: Yes Status: Suspected (6) Chronic back pain Current Visit: Yes Status: Chronic Qualifiers: Back pain location: low back pain Back pain laterality: unspecified Sciatica presence: without sciatica Qualified Code(s): M54.5 - Low back pain; G89.29 - Other chronic pain; G89.29 - Other chronic pain (7) Cocaine dependence Current Visit: Yes Status: Chronic Qualifiers: Substance use status: uncomplicated Qualified Code(s): F14.20 - Cocaine dependence, uncomplicated (8) Nicotine dependence Current Visit: Yes Status: Chronic Qualifiers: Nicotine product type: cigarettes Substance use status: uncomplicated Qualified Code(s): F17.210 - Nicotine dependence, cigarettes, uncomplicated (9) Weight decreased Current Visit: Yes Status: Chronic Cleared for Admission [facility] - Detox or Rehab [facility] Level of Care: Medically Managed Detox Regimen/Protocol: Methadone/Librium Claeared for Rehab Admission: No S Breath Alcohol Content Breath Alcohol Content: 0 Urine Drug Screen - Results Drug Screen Negative: No Urine Drug Screen Results: RENAE-Cocaine, OPI-Opiates, BZO-Benzodiazepines
[2017-11-10] MEDS ORDERED: MENTHOL/PHENOL 1 EACH UD MM PRN (20:19)
[2017-11-10] MEDS ORDERED: IBUPROFEN 400 MG TABLET (FP) PO PRN (20:19)
[2017-11-10] MEDS ORDERED: LOPERAMIDE HCL 2 MG CAPSULE PO PRN (20:19)
[2017-11-10] MEDS ORDERED: NICOTINE POLACRILEX 2 MG GUM BC PRN (20:19)
[2017-11-10] MEDS ORDERED: chlordiazePOXIDE HCL 25 MG CAPSULE PO PRN (20:19)
[2017-11-10] MEDS ORDERED: METHADONE HCL 10 MG TABLET (FOR DETOX USE ONLY) PO ONE ×2 (20:19→23:00)
[2017-11-10] MEDS ORDERED: guaiFENesin/D-METHORPHAN HB 10 ML UNIT-DOSE CUPS PO PRN (20:19)
[2017-11-10] MEDS ORDERED: MAG HYDROX/AL HYDROX/SIMETH 30 ML UNIT-DOSE CUP PO PRN (20:19)
[2017-11-10] MEDS ORDERED: P-EPHED 60MG/TRIPROLIDI 2.5MG TABLET PO PRN (20:19)
[2017-11-10] MEDS ORDERED: MAGNESIUM CITRATE 300 ML BOTTLE PO PRN (20:19)
[2017-11-10] MEDS ORDERED: ACETAMINOPHEN 325 MG TABLET (FP) PO PRN (20:19)
[2017-11-10] MEDS ORDERED: MAGNESIUM HYDROX 2400MG/30ML ORAL SUSPENSION 30 ML CUP PO PRN (20:19)
[2017-11-10] MEDS ORDERED: METHADONE HCL 10 MG TABLET (FOR DETOX USE ONLY) ONE (22:49)
[2017-11-10] MEDS: chlordiazePOXIDE HCL 25 MG CAPSULE PO SCH (22:51)
[2017-11-10] MEDS: MELATONIN 5 MG TABLETS PO PRN (22:53)
[2017-11-10] MEDS: LIDOCAINE PATCH REMOVAL MC SCH (22:59)
[2017-11-10] MEDS: THIAMINE HCL 100 MG TABLET (FP) PO SCH (22:59)
[2017-11-11 01:08] LABS: URINE APPEARANCE CLEAR; URINE BILIRUBIN NEGATIVE (<2.0 mg/dL); URINE COLOR YELLOW; URINE GLUCOSE (UA) NEGATIVE (NEGATIVE); URINE KETONE NEGATIVE (NEGATIVE); URINE LEUK ESTERASE NEGATIVE (NEGATIVE); URINE NITRITE NEGATIVE (NEGATIVE); URINE PROTEIN NEGATIVE (NEGATIVE); URINE UROBILINOGEN NEGATIVE mg/dL (0.2-1.0)
[2017-11-11] MEDS: chlordiazePOXIDE HCL 25 MG CAPSULE PO SCH ×4 (05:37→22:18)
[2017-11-11 09:50] LABS: HEMATOCRIT 36.6 % (35.4-49); HEMOGLOBIN 12.1 GM/dL (11.7-16.9); MCH 28.5 pg (25.7-33.7); MCHC 33.1 g/dl (32.0-35.9); MEAN PLT VOLUME 8.9 fl (7.5-11.1); PLATELET COUNT 178 K/MM3 (134-434); RBC 4.26 M/mm3 (4.00-5.60); RDW 15.6 % (11.9-15.9); WHITE BLOOD COUNT 6.3 K/mm3 (4.0-10.0)
[2017-11-11] MEDS ORDERED: NICOTINE 21 MG/24 HOURS TOPICAL PATCH TD SCH (10:00)
[2017-11-11] MEDS ORDERED: PRENATAL VITAMINS W/ FOLIC ACID TABLET (FP) PO SCH (10:00)
[2017-11-11] MEDS ORDERED: LIDOCAINE 5% TOPICAL PATCH TP SCH (10:00)
[2017-11-11] MEDS ORDERED: METHADONE HCL 10 MG TABLET (FOR DETOX USE ONLY) PO SCH (10:00)
[2017-11-11 10:03] LABS: CHLORIDE 110 mmol/L (98-107); POTASSIUM 4.2 mmol/L (3.5-5.1); SODIUM 144 mmol/L (136-145)
[2017-11-11 10:26] LABS: ALK PHOS 61 U/L (45-117); ANION GAP 5 (8-16); BILIRUBIN,TOTAL 0.4 mg/dL (0.2-1.0); BLOOD UREA NITROGEN 22 mg/dL (7-18); CALCIUM 8.3 mg/dL (8.5-10.1); CO2 29 mmol/L (21-32); CREATININE 0.9 mg/dL (0.7-1.3); GLUCOSE,RANDOM 96 mg/dL (74-106); SGOT/AST 10 U/L (15-37); SGPT/ALT 13 U/L (12-78); TOT PROT 5.7 g/dl (6.4-8.2)
--- NOTE | 2017-11-11 11:22 | PN ---
[facility] CIWA - CIWA Score Nausea/Vomitin-Mild Nausea/No Vomiting Muscle Tremors: 3 Anxiety: 3 Agitation: 3 Paroxysmal Sweats: 1-Minimal Palms Moist Orientation: 0-Oriented Tacttile Disturbances: 1-Very Mild Itch/Numbness Auditory Disturbances: 0-None Visual Disturbances: 0-None Headache: 0-None Present CIWA-Ar Total Score: 12 [facility] COWS - Scale Resting Pulse: 0= [place] 80 or Below Sweatin= Chills/Flushing Restless Observation: 1= Difficult to Sit Still Pupil Size: 0= Normal to Room Light Bone or Joint Aches: 2= Severe Diffuse Aches Runny Nose/ Eye Tearin= Runny Nose/Eyes GI Upset > 30mins: 2= Nausea/Diarrhea Tremor Observation of Outstretched Hands: 2= Slight Tremor Visible Yawning Observation: 1= 1-2x During Session Anxiety or Irritability: 2=Irritable/Anxious Goose Flesh Skin: 0=Smooth Skin COWS Score: 13 [facility] Progress Note (SOAP) Subjective: anxiety trouble sleep at night sweat tremor restlessness Objective: 11/11/17 11:21 Vital Signs Temperature 97.7 F 11/11/17 09:20 Pulse Rate 65 11/11/17 09:20 Respiratory Rate 20 11/11/17 09:20 Blood Pressure 103/63 11/11/17 09:20 O2 Sat by Pulse Oximetry (%) Laboratory Last Values WBC 6.3 K/mm3 (4.0-10.0) 11/11/17 07:00 RBC 4.26 M/mm3 (4.00-5.60) 11/11/17 07:00 Hgb 12.1 GM/dL (11.7-16.9) D 11/11/17 07:00 Hct 36.6 % (35.4-49) 11/11/17 07:00 MCV 86.0 fl (80-96) 11/11/17 07:00 MCH 28.5 pg (25.7-33.7) 11/11/17 07:00 MCHC 33.1 g/dl (32.0-35.9) 11/11/17 07:00 RDW 15.6 % (11.9-15.9) 11/11/17 07:00 Plt Count 178 K/MM3 (134-434) 11/11/17 07:00 MPV 8.9 fl (7.5-11.1) 11/11/17 07:00 Sodium 144 mmol/L (136-145) 11/11/17 07:00 Potassium 4.2 mmol/L (3.5-5.1) 11/11/17 07:00 Chloride 110 mmol/L (98-107) H 11/11/17 07:00 Carbon Dioxide 29 mmol/L (21-32) 11/11/17 07:00 Anion Gap 5 (8-16) L 11/11/17 07:00 BUN 22 mg/dL (7-18) H D 11/11/17 07:00 Creatinine 0.9 mg/dL (0.7-1.3) 11/11/17 07:00 Creat Clearance w eGFR > 60 (>60) 11/11/17 07:00 Random Glucose 96 mg/dL (74-106) 11/11/17 07:00 Calcium 8.3 mg/dL (8.5-10.1) L 11/11/17 07:00 Total Bilirubin 0.4 mg/dL (0.2-1.0) 11/11/17 07:00 AST 10 U/L (15-37) L 11/11/17 07:00 ALT 13 U/L (12-78) D 11/11/17 07:00 Alkaline Phosphatase 61 U/L (45-117) 11/11/17 07:00 Total Protein 5.7 g/dl (6.4-8.2) L 11/11/17 07:00 Albumin 3.0 g/dl (3.4-5.0) L D 11/11/17 07:00 Urine Color Yellow 11/11/17 00:01 Urine Appearance Clear 11/11/17 00:01 Urine pH 7.0 (5.0-8.0) D 11/11/17 00:01 Ur Specific [place] 1.016 (1.001-1.035) 11/11/17 00:01 Urine Protein Negative (NEGATIVE) 11/11/17 00:01 Urine Glucose (UA) Negative (NEGATIVE) 11/11/17 00:01 Urine Ketones Negative (NEGATIVE) 11/11/17 00:01 Urine Blood Negative (NEGATIVE) 11/11/17 00:01 Urine Nitrite Negative (NEGATIVE) 11/11/17 00:01 Urine Bilirubin Negative (<2.0 mg/dL) 11/11/17 00:01 Urine Urobilinogen Negative mg/dL (0.2-1.0) 11/11/17 00:01 Ur Leukocyte Esterase Negative (NEGATIVE) 11/11/17 00:01 lab noted Assessment: 11/11/17 11:21 withdrawal sx Plan: continue detox
--- NOTE | 2017-11-11 13:32 | CONSULT ---
[facility] Psychiatric Consult - Data Date of interview: 11/11/17 Admission source: [facility] Identifying data: This is 36 years old male, single, homless, unemployed, on PA , with long history of Alcohol, Xanax, Cocaine, Heroin and Nicotine abuse/ dependence. Reports withdrawal symptoms, seeking for detox. Substance Abuse History: - Smoking Cessation. Smoking history: Current every day smoker. Have you smoked in the past 12 months: Yes. Aproximately how many cigarettes per day: 20. Cigars Per Day: 0. Hx Chewing Tobacco Use: No. Initiated information on smoking cessation: Yes. 'Breaking Loose' booklet given : 11/10/17. - Substance & Tx. History. Hx Alcohol Use: Yes. Hx Substance Use : Yes. Substance Use Type: Alcohol, Cocaine, Heroin, Tranquilizers (xanax). Hx Substance Use Treatment: Yes ([facility]). - Substances Abused. heroin. Route : Injection. Frequency: Daily. Amount used: 20 bags. Age of first use: 16. Date of Last Use: 11/10/17. xanax. Route: Oral. Frequency: 3-6 times per week. Amount used: 6mg. Age of first use: 29. Date of Last Use: 11/08/17. * * beer/liquor. Frequency: Daily. Amount used: 4-24 oz/1/2 pint. Age of first use: 10. Date of Last Use: 11/09/17. cocaine. Route: Injection. Frequency : Daily. Amount used: 3gms. Age of first use: 10. Date of Last Use: 11/10/17 Medical History: LBP Psychiatric History: Denies psychiatric hospitalizationj history, reports no medications taking prior to admission. As per computer there is a history of Bipolar Disorder. Physical/Sexual Abuse/Trauma History: Denies Additional Comment: Observation. Detox Unit Care Protocol Mental Status Exam - Mental Status Exam Alert and Oriented to: Person Cognitive Function: Fair Patient Appearance: Unkempt Mood: Sad Affect: Flat Patient Behavior: Sedated Speech Pattern: Delayed Voice Loudness: Mildly Soft/Quiet Thought Process: Circumstantial Thought Disorder: Being Controlled Hallucinations: Denies Suicidal Ideation: Denies Homicidal Ideation: Denies Insight/Judgement: Fair Sleep: Difficulty falling asleep Appetite: Weight gain Muscle strength/Tone: Mild Hypotonicity Gait/Station: Shuffling Additional Comments: Observation. Detox Unit Care Protocol Psychiatric Findings - Problem List ([place] 1, 2,3) (1) Alcohol dependence with uncomplicated withdrawal Current Visit: Yes Status: Acute (2) Opioid dependence with withdrawal Current Visit: Yes Status: Acute (3) Sedative, hypnotic or anxiolytic dependence with withdrawal, uncomplicated Current Visit: Yes Status: Acute (4) Cocaine dependence Current Visit: Yes Status: Chronic Qualifiers: Substance use status: uncomplicated Qualified Code(s): F14.20 - Cocaine dependence, uncomplicated (5) Nicotine dependence Current Visit: Yes Status: Chronic Qualifiers: Nicotine product type: cigarettes Substance use status: uncomplicated Qualified Code(s): F17.210 - Nicotine dependence, cigarettes, uncomplicated (6) Substance-induced sleep disorder Current Visit: Yes Status: Suspected (7) Substance induced mood disorder Current Visit: No Status: Acute (8) Cannabis dependence Current Visit: No Status: Chronic (9) Bipolar disorder Current Visit: No Status: Suspected Qualifiers: Active/Remission status: remission status unspecified Qualified Code(s): F31.9 - Bipolar disorder, unspecified - Initial Treatment Plan Initial Treatment Plan: Observation. Detox Unit Care Protocol
--- NOTE | 2017-11-11 16:33 | EKG ---
Test Reason : Blood Pressure : / mmHG Vent. Rate : 059 BPM Atrial Rate : 059 BPM P-R Int : 156 ms QRS Dur : 082 ms QT Int : 464 ms P-R-T Axes : 058 043 054 degrees QTc Int : 459 ms SINUS BRADYCARDIA OTHERWISE NORMAL ECG WHEN COMPARED WITH ECG OF 10-NOV-2017 23:33, NO SIGNIFICANT CHANGE WAS FOUND Confirmed by JOSE BOURNE MD ([id number]) on 11/11/2017 4:33:25 PM Referred By: Confirmed By:JOSE BOURNE MD
--- NOTE | 2017-11-11 16:33 | EKG ---
Test Reason : Blood Pressure : / mmHG Vent. Rate : 058 BPM Atrial Rate : 058 BPM P-R Int : 156 ms QRS Dur : 082 ms QT Int : 464 ms P-R-T Axes : 064 055 061 degrees QTc Int : 455 ms SINUS BRADYCARDIA INCREASED R/S RATIO IN V1, CONSIDER EARLY TRANSITION OR POSTERIOR INFARCT ABNORMAL ECG WHEN COMPARED WITH ECG OF 06-OCT-2017 13:10, NO SIGNIFICANT CHANGE WAS FOUND Confirmed by STEFFEN SERNA, JOSE ([id number]) on 11/11/2017 4:33:07 PM Referred By: Confirmed By:JOSE BOURNE MD
[2017-11-11] MEDS: MELATONIN 5 MG TABLETS PO PRN (22:18)
[2017-11-11] MEDS: THIAMINE HCL 100 MG TABLET (FP) PO SCH (22:18)
[2017-11-11] MEDS: LIDOCAINE PATCH REMOVAL MC SCH (22:20)
[2017-11-12] MEDS: chlordiazePOXIDE HCL 25 MG CAPSULE PO SCH (05:51)
[2017-11-12 09:41] VITALS: BP 132/78; PULSE 75; TEMP 97.5
[2017-11-12] MEDS ORDERED: METHADONE HCL 5 MG TABLET (FOR DETOX USE ONLY) PO SCH (10:00)
--- NOTE | 2017-11-12 10:12 | DS ---
[facility] Detox Discharge Summary Admission Date: 11/10/17 Discharge Date: 11/12/17 - History Present History: Alcohol Dependence, Opioid Dependence, Sedative Dependence Additional Comments: 36 years old male admitted 11/10/17 for alcohol benzos and opiate withdrawal sx patient wants to terminate the detox regimen and leave the facility patient is alert oriented x 3 no acute distress denies suicidal denies homocidal no self destructive behavior patient agrees to consider the possibility of community self help groups - Physical Exam Results Vital Signs: Vital Signs Temperature 97.5 F L 11/12/17 09:40 Pulse Rate 75 11/12/17 09:40 Respiratory Rate 18 11/12/17 09:40 Blood Pressure 132/78 11/12/17 09:40 O2 Sat by Pulse Oximetry (%) Pertinent Admission Physical Exam Findings: withdrawal sx Vital Signs Temperature 97.5 F L 11/12/17 09:40 Pulse Rate 75 11/12/17 09:40 Respiratory Rate 18 11/12/17 09:40 Blood Pressure 132/78 11/12/17 09:40 O2 Sat by Pulse Oximetry (%) Laboratory Last Values WBC 6.3 K/mm3 (4.0-10.0) 11/11/17 07:00 RBC 4.26 M/mm3 (4.00-5.60) 11/11/17 07:00 Hgb 12.1 GM/dL (11.7-16.9) D 11/11/17 07:00 Hct 36.6 % (35.4-49) 11/11/17 07:00 MCV 86.0 fl (80-96) 11/11/17 07:00 MCH 28.5 pg (25.7-33.7) 11/11/17 07:00 MCHC 33.1 g/dl (32.0-35.9) 11/11/17 07:00 RDW 15.6 % (11.9-15.9) 11/11/17 07:00 Plt Count 178 K/MM3 (134-434) 11/11/17 07:00 MPV 8.9 fl (7.5-11.1) 11/11/17 07:00 Sodium 144 mmol/L (136-145) 11/11/17 07:00 Potassium 4.2 mmol/L (3.5-5.1) 11/11/17 07:00 Chloride 110 mmol/L (98-107) H 11/11/17 07:00 Carbon Dioxide 29 mmol/L (21-32) 11/11/17 07:00 Anion Gap 5 (8-16) L 11/11/17 07:00 BUN 22 mg/dL (7-18) H D 11/11/17 07:00 Creatinine 0.9 mg/dL (0.7-1.3) 11/11/17 07:00 Creat Clearance w eGFR > 60 (>60) 11/11/17 07:00 Random Glucose 96 mg/dL (74-106) 11/11/17 07:00 Calcium 8.3 mg/dL (8.5-10.1) L 11/11/17 07:00 Total Bilirubin 0.4 mg/dL (0.2-1.0) 11/11/17 07:00 AST 10 U/L (15-37) L 11/11/17 07:00 ALT 13 U/L (12-78) D 11/11/17 07:00 Alkaline Phosphatase 61 U/L (45-117) 11/11/17 07:00 Total Protein 5.7 g/dl (6.4-8.2) L 11/11/17 07:00 Albumin 3.0 g/dl (3.4-5.0) L D 11/11/17 07:00 Urine Color Yellow 11/11/17 00:01 Urine Appearance Clear 11/11/17 00:01 Urine pH 7.0 (5.0-8.0) D 11/11/17 00:01 Ur Specific [place] 1.016 (1.001-1.035) 11/11/17 00:01 Urine Protein Negative (NEGATIVE) 11/11/17 00:01 Urine Glucose (UA) Negative (NEGATIVE) 11/11/17 00:01 Urine Ketones Negative (NEGATIVE) 11/11/17 00:01 Urine Blood Negative (NEGATIVE) 11/11/17 00: Urine Nitrite Negative (NEGATIVE) 11/11/17 00:01 Urine Bilirubin Negative (<2.0 mg/dL) 11/11/17 00: Urine Urobilinogen Negative mg/dL (0.2-1.0) 11/11/17 00:01 Ur Leukocyte Esterase Negative (NEGATIVE) 11/11/17 00:01 RPR Titer Nonreactive (NONREACTIVE) 11/11/17 07:00 lab noted - Treatment Hospital Course: Detox Protocol Followed, Responded well Patient has Accepted a Rehab Referral to: encourage community self help support meeting and groups - Medication Discharge Medications: Ambulatory Orders NK [No Known Home Medication] 11/10/17 - Diagnosis (1) Alcohol dependence with uncomplicated withdrawal Current Visit: Yes Status: Acute (2) Opioid dependence with withdrawal Current Visit: Yes Status: Acute (3) Sedative, hypnotic or anxiolytic dependence with withdrawal, uncomplicated Current Visit: Yes Status: Acute (4) Hepatitis C Current Visit: No Status: Chronic Qualifiers: Viral hepatitis chronicity: chronic Hepatic coma status: without hepatic coma Qualified Code(s): B18.2 - Chronic viral hepatitis C - AMA Did Patient Leave Against Medical Advice: Yes
[2017-11-12] MEDS ORDERED: chlordiazePOXIDE 5 MG CAPSULE PO SCH (23:00)
[2017-11-13] MEDS ORDERED: chlordiazePOXIDE HCL 10 MG CAPSULE PO SCH (23:00)
[2017-11-14] MEDS ORDERED: METHADONE HCL 10 MG TABLET (FOR DETOX USE ONLY) PO SCH (10:00)
[2017-11-15] MEDS ORDERED: METHADONE HCL 5 MG TABLET (FOR DETOX USE ONLY) PO SCH (06:00)
== END 2017-11-12 09:42 | disposition left against medical advice (07) | DRG 770 ==
LOC: YASAS 16:23 → Y6N 22:12
PROVIDERS: ADMIT Surgery; ATTEND Surgery
PROC: HZ2ZZZZ Detoxification Services for Substance Abuse Treatment (ICD-10-PCS; principal; 2017-11-10)
DX: F11.23 Opioid dependence with withdrawal (principal); F13.230 Sedative, hypnotic or anxiolytic dependence with withdrawal, uncomplicated; F10.230 Alcohol dependence with withdrawal, uncomplicated; F14.20 Cocaine dependence, uncomplicated; F19.24 Other psychoactive substance dependence with psychoactive substance-induced mood disorder; F19.282 Other psychoactive substance dependence with psychoactive substance-induced sleep disorder; F31.9 Bipolar disorder, unspecified; B18.2 Chronic viral hepatitis C; M54.5 Low back pain; G89.29 Other chronic pain; R63.4 Abnormal weight loss; Z68.31 Body mass index [BMI] 31.0-31.9, adult; Z86.69 Personal history of other diseases of the nervous system and sense organs; Z59.0 Homelessness
CPT/HCPCS: 36415; 80053; 81003; 85027; 86593; 93005; 93010

== ENCOUNTER 2018-03-23 12:05 | Inpatient (IN) | payer OTHER ==
[2018-03-23 12:30] VITALS: BMI 24.0
--- NOTE | 2018-03-23 14:33 | HP ---
COWS - Scale Resting Pulse: 0= IN 80 or Below Sweatin=Flushed/Facial Moisture Restless Observation: 1= Difficult to Sit Still Pupil Size: 0= Normal to Room Light Bone or Joint Aches: 2= Severe Diffuse Aches Runny Nose/ Eye Tearin= Runny Nose/Eyes GI Upset > 30mins: 0= None Tremor Observation: 2= Slight Tremor Visible Yawning Observation: 2= >3x During Session Anxiety or Irritability: 2=Irritable/Anxious Goose Flesh Skin: 3=Piloerection COWS Score: 16 CIWA Score - CIWA Score Nausea/Vomitin-Mild Nausea/No Vomiting Muscle Tremors: 4-Moderate,w/Arms Extend Anxiety: 4-Mod. Anxious/Guarded Agitation: 4-Moderately Restless Paroxysmal Sweats: 3 Orientation: 0-Oriented Tacttile Disturbances: 0-None Auditory Disturbances: 0-None Visual Disturbances: 0-None Headache: 2-Mild CIWA-Ar Total Score: 18 Admission ROS BHS - HPI Chief Complaint: I am trying to get clean so I can go to [facility]. Allergies/Adverse Reactions: Allergies Allergy/AdvReac Type Severity Reaction Status Date / Time venom-honey bee Allergy Severe Swelling Verified 03/23/18 13:56 [bee venom (honey bee)] Fish Containing Products Allergy Mild Difficulty Verified 03/23/18 13:56 Breathing No Known Drug Allergies Allergy Verified 03/23/18 13:56 bee stings Allergy Severe Swelling Uncoded 03/23/18 13:56 History of Present Illness: pt is a 37yr old male with a history of alcohol, heroin and cocaine dependence seeking detox for treatment. Exam Limitations: No Limitations - Ebola screening Have you traveled outside of the country in the last 21 days: No Have you had contact with anyone from an Ebola affected area: No Have you been sick,other than usual withdrawal symptoms: No Do you have a fever: No - Review of Systems Constitutional: Chills, Diaphoresis, Loss of Appetite, Night Sweats, Changes in sleep, Unintentional Wgt. Loss EENT: reports: Tearing, Nose Congestion Respiratory: reports: No Symptoms reported Cardiac: reports: No Symptoms Reported GI: reports: Poor Appetite, Poor Fluid Intake, Indigestion : reports: No Symptoms Reported Musculoskeletal: reports: Back Pain, Joint Pain Integumentary: reports: Flushing, Sweating Neuro: reports: Headache, Seizure (last seizure was >10yrs ago.), Tingling, Tremors Endocrine: reports: Excessive Sweating, Flushing, Intolerance to Cold, Intolerance to Heat Hematology: reports: No Symptoms Reported Psychiatric: reports: Judgement Intact, Mood/Affect Appropiate, Orientated x3, Agitated, Anxious Other Systems: Reviewed and Negative Patient History - Patient Medical History Hx Anemia: No Hx Asthma: No Hx Chronic Obstructive Pulmonary Disease (COPD): No Hx Cancer: No Hx Cardiac Disorders: No Hx Congestive Heart Failure: No Hx Hypertension: No Hx Hypercholesterolemia: No Hx Pacemaker: No HX Cerebrovascular Accident: No Hx Seizures: Yes (2005) Hx Dementia: No Hx Diabetes: No Hx Gastrointestinal Disorders: No Hx Liver Disease: Yes (Hep C and treated ) Hx Genitourinary Disorders: No Hx Sexually Transmitted Disorders: No Hx Renal Disease (ESRD): No Hx Thyroid Disease: No Hx Human Immunodeficiency Virus (HIV): No (negative) Hx Hepatitis C: Yes (treated - undetectable vl) Hx Depression: Yes Hx Suicide Attempt: No Hx Bipolar Disorder: Yes (reports no psych tx in years/ adhd) Hx Schizophrenia: No - Patient Surgical History Past Surgical History: No Hx Neurologic Surgery: No Hx Cataract Extraction: No Hx Cardiac Surgery: No Hx Lung Surgery: No Hx Breast Surgery: No Hx Breast Biopsy: No Hx Abdominal Surgery: No Hx Appendectomy: No Hx Cholecystectomy: No Hx Genitourinary Surgery: No Hx Section: No Hx Orthopedic Surgery: No Other Surgical History: Sx for abscess Drainage + TISSUE REMOVAL R hand in 04/04 , Tonsillectomy 7y Anesthesia Reaction: No - PPD History Previous Implant?: Yes Documented Results: Negative w/proof Date: 10/08/17 Results: 0 mm PPD to be Administered?: No - Reproductive History Patient is a Female of Child Bearing Age (11 -55 yrs old): No - Smoking Cessation Smoking history: Current every day smoker Have you smoked in the past 12 months: Yes Aproximately how many cigarettes per day: 20 Cigars Per Day: 0 Hx Chewing Tobacco Use: No Initiated information on smoking cessation: Yes 'Breaking Loose' booklet given: 03/23/18 - Substance & Tx. History Hx Alcohol Use: Yes Hx Substance Use: Yes Substance Use Type: Alcohol, Cocaine, Heroin Hx Substance Use Treatment: Yes (last detox [facility] 1.5months ago) - Substances Abused Alcohol Route: Oral Frequency: Daily Amount used: 1/2 pint vodka (3) 24oz beers Age of first use: 10 Date of Last Use: 03/22/18 Heroin Route: Injection Frequency: Daily Amount used: 15bags Age of first use: 16 Date of Last Use: 03/23/18 Cocaine Route: Injection Frequency: Daily Amount used: $60 Age of first use: 11 Date of Last Use: 03/22/18 Alprazolam (Xanax) Route: Oral Frequency: 3-6 times per week Amount used: 5-8mg Age of first use: 13 Date of Last Use: 03/21/18 Family Disease History - Family Disease History Family Disease History: Heart Disease: Mother (hx CVA - alive), Other: Mother Admission Physical Exam [facility] - Vital Signs Vital Signs: Vital Signs - 24 hr 03/23/18 12:26 Temperature 97.6 F Pulse Rate 54 L Respiratory 18 Rate Blood Pressure 119/73 - Physical General Appearance: Yes: Appropriately Dressed, Thin, Tremorous, Irritable, Sweating, Anxious HEENTM: Yes: Hearing grossly Normal, Normal Voice, Nasal Congestion, Rhinorrhea Respiratory: Yes: Lungs Clear, Normal Breath Sounds, No Respiratory Distress Neck: Yes: No masses,lesions,Nodules Breast: Yes: Within Normal Limits Cardiology: Yes: Regular Rhythm, Regular Rate, S1, S2 Abdominal: Yes: Normal Bowel Sounds, Non Tender Genitourinary: Yes: Within Normal Limits Back: Yes: Normal Inspection Musculoskeletal: Yes: full range of Motion, Back pain Extremities: Yes: Normal Capillary Refill, Normal Inspection, Tremors 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: Yes: Fully Oriented, Alert, Normal Response Integumentary: Yes: Normal Color, Diaphoresis Lymphatic: Yes: Within Normal Limits - Diagnostic (1) Alcohol dependence with uncomplicated withdrawal Current Visit: Yes Status: Acute (2) Opioid dependence with withdrawal Current Visit: Yes Status: Acute (3) Sedative, hypnotic or anxiolytic dependence with withdrawal, uncomplicated Current Visit: Yes Status: Acute (4) Cannabis dependence Current Visit: No Status: Chronic (5) Hepatitis C Current Visit: No Status: Chronic Qualifiers: Viral hepatitis chronicity: chronic Hepatic coma status: without hepatic coma Qualified Code(s): B18.2 - Chronic viral hepatitis C Comment: completed treatment (6) Nicotine dependence Current Visit: Yes Status: Chronic Qualifiers: Nicotine product type: cigarettes Substance use status: uncomplicated Qualified Code(s): F17.210 - Nicotine dependence, cigarettes, uncomplicated Cleared for Admission S - Detox or Rehab [facility] Level of Care: Medically Managed Detox Regimen/Protocol: Methadone/Librium S Breath Alcohol Content Breath Alcohol Content: 0 Urine Drug Screen - Results Drug Screen Negative: No Urine Drug Screen Results: THC-Marijuana, OPI-Opiates, BZO-Benzodiazepines, MTD- Methadone, OXY-Oxycodone
[2018-03-23] MEDS ORDERED: chlordiazePOXIDE HCL 25 MG CAPSULE PO PRN (14:35)
[2018-03-23] MEDS ORDERED: MAG HYDROX/AL HYDROX/SIMETH 30 ML UNIT-DOSE CUP PO PRN (14:35)
[2018-03-23] MEDS ORDERED: MENTHOL/PHENOL 1 EACH UD MM PRN (14:35)
[2018-03-23] MEDS ORDERED: NICOTINE POLACRILEX 4 MG GUM BUC PRN (14:35)
[2018-03-23] MEDS ORDERED: hydrOXYzine PAMOATE 50 MG CAPSULE (FP) PO PRN (14:35)
[2018-03-23] MEDS ORDERED: MAGNESIUM CITRATE 300 ML BOTTLE PO PRN (14:35)
[2018-03-23] MEDS ORDERED: ACETAMINOPHEN 325 MG TABLET (FP) PO PRN (14:35)
[2018-03-23] MEDS ORDERED: LOPERAMIDE HCL 2 MG CAPSULE PO PRN (14:35)
[2018-03-23] MEDS ORDERED: IBUPROFEN 400 MG TABLET (FP) PO PRN (14:35)
[2018-03-23] MEDS ORDERED: MAGNESIUM HYDROX 2400MG/30ML ORAL SUSPENSION 30 ML CUP PO PRN (14:35)
[2018-03-23] MEDS ORDERED: P-EPHED 60MG/TRIPROLIDI 2.5MG TABLET PO PRN (14:35)
[2018-03-23] MEDS ORDERED: guaiFENesin/D-METHORPHAN HB 10 ML UNIT-DOSE CUPS PO PRN (14:35)
[2018-03-23] MEDS ORDERED: LIDOCAINE 5% TOPICAL PATCH TP ONE (15:45)
[2018-03-23] MEDS ORDERED: METHADONE HCL 10 MG TABLET (FOR DETOX USE ONLY) PO ONE ×2 (15:45→23:00)
[2018-03-23] MEDS ORDERED: chlordiazePOXIDE HCL 25 MG CAPSULE PO ONE (15:45)
--- NOTE | 2018-03-23 16:53 | CONSULT ---
[facility] Psychiatric Consult - Data Date of interview: 03/23/18 Admission source: [facility] Identifying data: Patient is a 37 year old single male, without children, unemployed, and currently homeless. This is one of multiple admissions for patient. Patient admitted to for alcohol, opiate, and benzodiazepine dependence. Substance Abuse History: Smoking Cessation. Smoking history: Current every day smoker. Have you smoked in the past 12 months: Yes. Aproximately how many cigarettes per day: 20. Cigars Per Day: 0. Hx Chewing Tobacco Use: No. Initiated information on smoking cessation: Yes. 'Breaking Loose' booklet given : 03/23/18. - Substance & Tx. History. Hx Alcohol Use: Yes. Hx Substance Use : Yes. Substance Use Type: Alcohol, Cocaine, Heroin. Hx Substance Use Treatment: Yes (last detox [facility] 1.5months ago). - Substances Abused. * * Alcohol. Route: Oral. Frequency: Daily. Amount used: 1/2 pint vodka (3) 24oz beers. Age of first use: 10. Date of Last Use: 03/22/18. Heroin. Route: Injection. Frequency: Daily. Amount used: 15bags. Age of first use: 16. Date of Last Use: 03/23/18. Cocaine. Route: Injection. Frequency: Daily. Amount used: $60. Age of first use: 11. Date of Last Use: 03/22/18. * * Alprazolam (Xanax). Route: Oral. Frequency: 3-6 times per week. Amount used : 5-8mg. Age of first use: 13. Date of Last Use: 03/21/18 Medical History: Tonsillectomy , Seizures (2005) Psychiatric History: Patient's first psychiatric contact was at the age of [age] after his mother took him to see a psychiatrist secondary to his restless behavior. He reports being diagnosed with ADHD and was started on Ritalin. Throughout the years patient reports intermittent outpatient psychiatric care. Mr. Spears reports multiple psychiatric hospitalizations, most recently three years ago at [facility]. He is also known to [facility]. He reports a diagnosis of bipolar disorder and ADHD. Patient reports noncompliance to medications (last took medications 3 months ago ). In the past patient has accepted ritalin, seroquel, trazodone, gabapentin, wellbutrin, topamax and mirtzapine. Patient currently reports poor sleep and feeling sad. Physical/Sexual Abuse/Trauma History: denies. Mental Status Exam - Mental Status Exam Alert and Oriented to: Time, Place, Person Cognitive Function: Good Patient Appearance: Well Groomed Mood: Hopeful Affect: Appropriate, Mood Congruent Patient Behavior: Appropriate, Cooperative Speech Pattern: Clear, Appropriate Voice Loudness: Normal Thought Process: Intact, Goal Oriented Thought Disorder: Not Present Hallucinations: Denies Suicidal Ideation: Denies Homicidal Ideation: Denies Insight/Judgement: Poor Sleep: Poorly Appetite: Fair Muscle strength/Tone: Normal Gait/Station: Normal Psychiatric Findings - Problem List ([place] 1, 2,3) (1) Alcohol dependence with uncomplicated withdrawal Current Visit: Yes Status: Acute (2) Opioid dependence with withdrawal Current Visit: Yes Status: Acute (3) Sedative, hypnotic or anxiolytic dependence with withdrawal, uncomplicated Current Visit: Yes Status: Acute (4) Substance induced mood disorder Current Visit: Yes Status: Acute (5) ADHD (attention deficit hyperactivity disorder) Current Visit: No Status: Suspected Qualifiers: Attention deficit-hyperactivity disorder type: other Qualified Code(s): F90.8 - Attention-deficit hyperactivity disorder, other type (6) Substance-induced sleep disorder Current Visit: Yes Status: Acute (7) Bipolar disorder Current Visit: No Status: Suspected Qualifiers: Active/Remission status: remission status unspecified Qualified Code(s): F31.9 - Bipolar disorder, unspecified - Initial Treatment Plan Initial Treatment Plan: Psychoeducation provided. Detoxification in progress. Will order Seroquel 50mg qhs. Benefits and side effects discussed. Verbal consent given.
[2018-03-23] MEDS: chlordiazePOXIDE HCL 25 MG CAPSULE PO SCH ×2 (17:23→22:10)
[2018-03-23 18:50] LABS: URINE APPEARANCE CLEAR; URINE BILIRUBIN NEGATIVE (<2.0 mg/dL); URINE COLOR DKYELLOW; URINE GLUCOSE (UA) NEGATIVE (NEGATIVE); URINE KETONE NEGATIVE (NEGATIVE); URINE LEUK ESTERASE NEGATIVE (NEGATIVE); URINE NITRITE NEGATIVE (NEGATIVE); URINE PROTEIN NEGATIVE (NEGATIVE); URINE UROBILINOGEN NEGATIVE mg/dL (0.2-1.0)
[2018-03-23] MEDS ORDERED: MELATONIN 5 MG TABLETS PO PRN (22:00)
[2018-03-23] MEDS: THIAMINE HCL 100 MG TABLET (FP) PO SCH (22:09)
[2018-03-23] MEDS: QUEtiapine FUMARATE 50 MG TABLET PO SCH (22:10)
[2018-03-23] MEDS: LIDOCAINE PATCH REMOVAL MC SCH (22:12)
[2018-03-24] MEDS: chlordiazePOXIDE HCL 25 MG CAPSULE PO SCH ×4 (06:13→22:08)
[2018-03-24] MEDS ORDERED: NICOTINE 21 MG/24 HOURS TOPICAL PATCH TD SCH (10:00)
[2018-03-24] MEDS ORDERED: LIDOCAINE 5% TOPICAL PATCH TP SCH (10:00)
[2018-03-24] MEDS ORDERED: METHADONE HCL 10 MG TABLET (FOR DETOX USE ONLY) PO SCH (10:00)
[2018-03-24] MEDS ORDERED: PRENATAL VITAMINS W/ FOLIC ACID TABLET (FP) PO SCH (10:00)
[2018-03-24 10:04] LABS: HEMATOCRIT 44.6 % (35.4-49); HEMOGLOBIN 14.6 GM/dL (11.7-16.9); MCH 28.2 pg (25.7-33.7); MCHC 32.7 g/dl (32.0-35.9); MEAN CELL VOLUME 86.2 fl (80-96); PLATELET COUNT 249 K/MM3 (134-434); RBC 5.17 M/mm3 (4.00-5.60); RDW 14.7 % (11.9-15.9)
[2018-03-24 10:12] LABS: ALBUMIN 3.9 g/dl (3.4-5.0); ALK PHOS 68 U/L (45-117); ANION GAP 6 MMOL/L (8-16); BILIRUBIN,TOTAL 0.6 mg/dL (0.2-1); BLOOD UREA NITROGEN 13 mg/dL (7-18); CALCIUM 9.6 mg/dL (8.5-10.1); CHLORIDE 103 mmol/L (98-107); CO2 28 mmol/L (21-32); CREATININE 0.9 mg/dL (0.55-1.3); GLUCOSE,RANDOM 128 mg/dL (74-106); POTASSIUM 4.1 mmol/L (3.5-5.1); SGOT/AST 11 U/L (15-37); SGPT/ALT 17 U/L (13-61); SODIUM 138 mmol/L (136-145); TOT PROT 7.3 g/dl (6.4-8.2)
--- NOTE | 2018-03-24 11:35 | PN ---
[facility] CIWA - CIWA Score Nausea/Vomitin Muscle Tremors: 4-Moderate,w/Arms Extend Anxiety: 4-Mod. Anxious/Guarded Agitation: 4-Moderately Restless Paroxysmal Sweats: 3 Orientation: 0-Oriented Tacttile Disturbances: 0-None Auditory Disturbances: 0-None Visual Disturbances: 0-None Headache: 1-Very Mild CIWA-Ar Total Score: 18 BHS COWS - Scale Resting Pulse: 0= SC 80 or Below Sweatin=Flushed/Facial Moisture Restless Observation: 3= Extraneous Movement Pupil Size: 1= Pupils >than Normal Bone or Joint Aches: 2= Severe Diffuse Aches Runny Nose/ Eye Tearin= Runny Nose/Eyes GI Upset > 30mins: 3= Vomiting/Diarrhea Tremor Observation of Outstretched Hands: 2= Slight Tremor Visible Yawning Observation: 1= 1-2x During Session Anxiety or Irritability: 2=Irritable/Anxious Goose Flesh Skin: 0=Smooth Skin COWS Score: 18 [facility] Progress Note (SOAP) Subjective: Stomach ache, chills, agitation, irritable Objective: 03/24/18 11:32 Last Vital Signs Temp Pulse Resp BP Pulse Ox 97.7 F 62 17 93/62 03/24/18 09:05 03/24/18 09:05 03/24/18 09:05 03/24/18 09:05 Hypotension noted: b/p 93/62 Laboratory Tests 03/23/18 03/24/18 03/24/18 17:00 06:00 06:00 WBC 8.0 RBC 5.17 Hgb 14.6 Hct 44.6 D MCV 86.2 MCH 28.2 MCHC 32.7 RDW 14.7 Plt Count 249 D MPV 9.0 Sodium 138 Potassium 4.1 Chloride 103 Carbon Dioxide 28 Anion Gap 6 L BUN 13 Creatinine 0.9 Creat Clearance w eGFR > 60 Random Glucose 128 H Calcium 9.6 Total Bilirubin 0.6 AST 11 L ALT 17 Alkaline Phosphatase 68 Total Protein 7.3 Albumin 3.9 Urine Color Dkyellow Urine Appearance Clear Urine pH 5.0 D Ur Specific [place] 1.024 Urine Protein Negative Urine Glucose (UA) Negative Urine Ketones Negative Urine Blood Negative Urine Nitrite Negative Urine Bilirubin Negative Urine Urobilinogen Negative Ur Leukocyte Esterase Negative Labs reviewed: serum glucose 128 Assessment: 03/24/18 11:34 Withdrawal sxs Noted with hyperglycemia Plan: Continue detox Hyperglycemia: denies h/o DM, repeat fasting glucose, send HbA1c
[2018-03-24] MEDS: QUEtiapine FUMARATE 50 MG TABLET PO SCH (22:08)
[2018-03-24] MEDS: THIAMINE HCL 100 MG TABLET (FP) PO SCH (22:08)
[2018-03-24] MEDS: LIDOCAINE PATCH REMOVAL MC SCH (22:09)
--- NOTE | 2018-03-24 22:20 | EKG ---
Test Reason : Blood Pressure : / mmHG Vent. Rate : 056 BPM Atrial Rate : 056 BPM P-R Int : 162 ms QRS Dur : 084 ms QT Int : 438 ms P-R-T Axes : 056 043 054 degrees QTc Int : 422 ms SINUS BRADYCARDIA OTHERWISE NORMAL ECG WHEN COMPARED WITH ECG OF 11-NOV-2017 09:18, NO SIGNIFICANT CHANGE WAS FOUND Confirmed by GARETT HENRY MD ([id number]) on 03/24/2018 10:19:59 PM Referred By: Confirmed By:GARETT HENRY MD
[2018-03-25] MEDS: chlordiazePOXIDE HCL 25 MG CAPSULE PO SCH (06:16)
[2018-03-25 06:31] VITALS: BP 113/70; PULSE 45; TEMP 96.9
[2018-03-25] MEDS ORDERED: METHADONE HCL 5 MG TABLET (FOR DETOX USE ONLY) PO SCH (10:00)
--- NOTE | 2018-03-25 13:15 | DS ---
[facility] Detox Discharge Summary Admission Date: 03/23/18 Discharge Date: 03/25/18 - History Present History: Alcohol Dependence, Cocaine Dependence, Opioid Dependence, Sedative Dependence Additional Comments: Patient decided to leave AMA despite board writer and staff education on importance of completing detox and danger of withdrawal without treatment. Patient stated he doesn't care and he doesn't want to be here anymore. Patient became agitated demanding to be released. Pertinent Past History: Hepatitis C Seizure disorder - Physical Exam Results Vital Signs: Vital Signs Temperature 96.9 F L 03/25/18 06:30 Pulse Rate 45 L 03/25/18 06:30 Respiratory Rate 18 03/25/18 06:30 Blood Pressure 113/70 03/25/18 06:30 O2 Sat by Pulse Oximetry (%) Pertinent Admission Physical Exam Findings: Withdrawal sxs Laboratory Tests 03/23/18 03/24/18 03/24/18 17:00 06:00 06:00 WBC 8.0 RBC 5.17 Hgb 14.6 Hct 44.6 D MCV 86.2 MCH 28.2 MCHC 32.7 RDW 14.7 Plt Count 249 D MPV 9.0 Sodium 138 Potassium 4.1 Chloride 103 Carbon Dioxide 28 Anion Gap 6 L BUN 13 Creatinine 0.9 Creat Clearance w eGFR > 60 Random Glucose 128 H Calcium 9.6 Total Bilirubin 0.6 AST 11 L ALT 17 Alkaline Phosphatase 68 Total Protein 7.3 Albumin 3.9 Urine Color Dkyellow Urine Appearance Clear Urine pH 5.0 D Ur Specific [place] 1.024 Urine Protein Negative Urine Glucose (UA) Negative Urine Ketones Negative Urine Blood Negative Urine Nitrite Negative Urine Bilirubin Negative Urine Urobilinogen Negative Ur Leukocyte Esterase Negative RPR Titer 03/24/18 06:00 WBC RBC Hgb Hct MCV MCH MCHC RDW Plt Count MPV Sodium Potassium Chloride Carbon Dioxide Anion Gap BUN Creatinine Creat Clearance w eGFR Random Glucose Calcium Total Bilirubin AST ALT Alkaline Phosphatase Total Protein Albumin Urine Color Urine Appearance Urine pH Ur Specific [place] Urine Protein Urine Glucose (UA) Urine Ketones Urine Blood Urine Nitrite Urine Bilirubin Urine Urobilinogen Ur Leukocyte Esterase RPR Titer Nonreactive Labs reviewed: hyperglycemia (follow up with PCP for further evaluation) - Medication Discharge Medications: Ambulatory Orders NK [No Known Home Medication] 11/10/17 - Diagnosis (1) Hyperglycemia Status: Acute (2) Seizure Status: Chronic (3) Depression Status: Chronic (4) Alcohol dependence with uncomplicated withdrawal Status: Acute (5) Opioid dependence with withdrawal Status: Acute (6) Sedative, hypnotic or anxiolytic dependence with withdrawal, uncomplicated Status: Acute (7) Substance induced mood disorder Status: Acute (8) Substance-induced sleep disorder Status: Acute (9) Nicotine dependence Status: Chronic Qualifiers: Nicotine product type: cigarettes Substance use status: uncomplicated Qualified Code(s): F17.210 - Nicotine dependence, cigarettes, uncomplicated (10) Cocaine dependence Status: Chronic Qualifiers: Substance use status: uncomplicated Qualified Code(s): F14.20 - Cocaine dependence, uncomplicated (11) Hepatitis C Status: Chronic Qualifiers: Viral hepatitis chronicity: chronic Hepatic coma status: without hepatic coma Qualified Code(s): B18.2 - Chronic viral hepatitis C (12) Bipolar disorder Status: Chronic Qualifiers: Active/Remission status: remission status unspecified Qualified Code(s): F31.9 - Bipolar disorder, unspecified - AMA Did Patient Leave Against Medical Advice: Yes (Proceed to ER stat if w/d sxs, f/ u with your PCP in 3 days)
[2018-03-25] MEDS ORDERED: chlordiazePOXIDE 5 MG CAPSULE PO SCH (17:00)
[2018-03-26] MEDS ORDERED: chlordiazePOXIDE HCL 10 MG CAPSULE PO SCH (17:00)
[2018-03-27] MEDS ORDERED: METHADONE HCL 10 MG TABLET (FOR DETOX USE ONLY) PO SCH (10:00)
[2018-03-28] MEDS ORDERED: METHADONE HCL 5 MG TABLET (FOR DETOX USE ONLY) PO SCH (06:00)
== END 2018-03-25 08:40 | disposition left against medical advice (07) | DRG 770 ==
LOC: YASAS 12:05 → Y3N 15:16
PROC: HZ2ZZZZ Detoxification Services for Substance Abuse Treatment (ICD-10-PCS; principal; 2018-03-23)
DX: F11.23 Opioid dependence with withdrawal (principal); F10.230 Alcohol dependence with withdrawal, uncomplicated; F13.230 Sedative, hypnotic or anxiolytic dependence with withdrawal, uncomplicated; F14.20 Cocaine dependence, uncomplicated; F17.210 Nicotine dependence, cigarettes, uncomplicated; F90.9 Attention-deficit hyperactivity disorder, unspecified type; F19.24 Other psychoactive substance dependence with psychoactive substance-induced mood disorder; F19.282 Other psychoactive substance dependence with psychoactive substance-induced sleep disorder; F31.9 Bipolar disorder, unspecified; F32.9 Major depressive disorder, single episode, unspecified; R73.9 Hyperglycemia, unspecified; B18.2 Chronic viral hepatitis C; Z86.69 Personal history of other diseases of the nervous system and sense organs; Z91.013 Allergy to seafood; Z91.038 Other insect allergy status; Z59.0 Homelessness
CPT/HCPCS: 36415; 80053; 81003; 85027; 86593; 93005; 93010

== ENCOUNTER 2018-04-29 13:34 | Inpatient (IN) | payer OTHER ==
[2018-04-29 14:25] VITALS: BMI 23.2
--- NOTE | 2018-04-29 20:46 | HP ---
COWS - Scale Resting Pulse: 0= [place] 80 or Below Sweatin= Chills/Flushing Restless Observation: 0= Sits Still Pupil Size: 0= Normal to Room Light Bone or Joint Aches: 2= Severe Diffuse Aches Runny Nose/ Eye Tearin= Constantly Teary/Runny GI Upset > 30mins: 2= Nausea/Diarrhea Tremor Observation: 0= None Yawning Observation: 0= None Anxiety or Irritability: 4=Extreme Anxiety Goose Flesh Skin: 0=Smooth Skin COWS Score: 13 CIWA Score - Admission Criteria OASAS Guidelines: Admission for Medically Managed Detox: Requires at least one of the followin. CIWA greater than 12 2. Seizures within the past 24 hours 3. Delirium tremens within the past 24 hours 4. Hallucinations within the past 24 hours 5. Acute intervention needed for co occurring medical disorder 6. Acute intervention needed for co occurring psychiatric disorder 7. Severe withdrawal that cannot be handled at a lower level of care (continued vomiting, continued diarrhea, abnormal vital signs) requiring intravenous medication and/or fluids 8. Admission ROS [facility] Allergies/Adverse Reactions: Allergies Allergy/AdvReac Type Severity Reaction Status Date / Time venom-honey bee Allergy Severe Swelling Verified 03/23/18 13:56 [bee venom (honey bee)] Fish Containing Products Allergy Mild Difficulty Verified 03/23/18 13:56 Breathing No Known Drug Allergies Allergy Verified 03/23/18 13:56 bee stings Allergy Severe Swelling Uncoded 03/23/18 13:56 History of Present Illness: patient here requesting detox from opiate use , reports heroin use IVDU in mani hands / arms , needles from the needle exchange, denies sharing, denies re- using , use x 10 years , prior sober x 10 years, prior via inhalation x 2 1 /2 years . latest use early this morning , self- referred to tx . OD x "a few " , most ecently 6-7 mo ago , Narcan by EMS cannabis ; since age 10 , daily 1 joint cocaine : daily 60 $ / day IVDU x 8 years benzo ; intermittent use x 15 years , klonopin and xanax 4-8 mg /day , latest 2 days ago , seizure many years ago from withdrawal etoh : 4-5 x/week , 1/2 pint , varied amounts , denies tremors if not drinking , + blackouts , denies falls , denies drinking and driving currently , denies DWI . First age of use : 7 other illicits used intermittently in the past : PCP 9 2 mo ago ), LSD , psiloscybine , MDMA ,MDA< crystal methamphetamine IVDU and via inhalation latest 2 years ago utox : + macy , opi, mtd , oxy , thc , fen , mdma , bar denies methadone use , has been in [facility] years ago , started using IVDU cocaine tobacco : 1 -06/22 ppd , requesting nrt w/ patch pmhx :hep C , [facility] : denies psych : denies meds - did not bring any - Ebola screening Have you traveled outside of the country in the last 21 days: No Have you had contact with anyone from an Ebola affected area: No Have you been sick,other than usual withdrawal symptoms: No Do you have a fever: No - Review of Systems Constitutional: See HPI, Chills EENT: reports: See HPI, Other (dentures upper and lower) Respiratory: reports: No Symptoms reported Cardiac: reports: No Symptoms Reported GI: reports: Abdominal Distended, Nausea : reports: No Symptoms Reported Musculoskeletal: reports: Back Pain Integumentary: reports: Other (track pineda , no abscess) Neuro: reports: Seizure Endocrine: reports: No Symptoms Reported Psychiatric: reports: Judgement Intact, Orientated x3, Anxious Patient History - Patient Medical History Hx Anemia: No Hx Asthma: No Hx Chronic Obstructive Pulmonary Disease (COPD): No Hx Cancer: No Hx Cardiac Disorders: No Hx Congestive Heart Failure: No Hx Hypertension: No Hx Hypercholesterolemia: No Hx Pacemaker: No HX Cerebrovascular Accident: No Hx Seizures: Yes (2005) Hx Dementia: No Hx Diabetes: No Hx Gastrointestinal Disorders: No Hx Liver Disease: Yes (Hep C and treated ) Hx Genitourinary Disorders: No Hx Sexually Transmitted Disorders: No Hx Renal Disease (ESRD): No Hx Thyroid Disease: No Hx Human Immunodeficiency Virus (HIV): No (negative) Hx Hepatitis C: Yes (treated - undetectable vl) Hx Depression: Yes Hx Suicide Attempt: No Hx Bipolar Disorder: Yes (reports no psych tx in years/ adhd) Hx Schizophrenia: No - Patient Surgical History Past Surgical History: No Hx Neurologic Surgery: No Hx Cataract Extraction: No Hx Cardiac Surgery: No Hx Lung Surgery: No Hx Breast Surgery: No Hx Breast Biopsy: No Hx Abdominal Surgery: No Hx Appendectomy: No Hx Cholecystectomy: No Hx Genitourinary Surgery: No Hx Section: No Hx Orthopedic Surgery: No Other Surgical History: Sx for abscess Drainage + TISSUE REMOVAL R hand in 04/04 , Tonsillectomy 7y Anesthesia Reaction: No - PPD History Date: 03/25/18 Results: 0 mm - Smoking Cessation Smoking history: Current every day smoker Have you smoked in the past 12 months: Yes Aproximately how many cigarettes per day: 20 Cigars Per Day: 0 Hx Chewing Tobacco Use: No Initiated information on smoking cessation: No - Substances Abused Heroin Route: Injection Frequency: Daily Amount used: 15bags Age of first use: 10 Date of Last Use: 04/29/18 Benzodiazepine (Klonopin) Route: Oral Frequency: Daily Amount used: 8mg Age of first use: 10 Date of Last Use: 04/28/18 Family Disease History - Family Disease History Family Disease History: Heart Disease: Mother (hx CVA - alive), Other: Mother Admission Physical Exam S - Vital Signs Vital Signs: Vital Signs - 24 hr 04/29/18 14:15 Temperature 97.8 F Pulse Rate 67 Respiratory 18 Rate Blood Pressure 118/71 - Physical General Appearance: Yes: Moderate Distress, Irritable, Sweating, Anxious HEENTM: Yes: Other (upper and lower dentures) Respiratory: Yes: Chest Non-Tender, Lungs Clear, Normal Breath Sounds Neck: Yes: No masses,lesions,Nodules, Trachea in good position Breast: Yes: Breast Exam Deferred Cardiology: Yes: Regular Rhythm, Regular Rate, S1, S2 Abdominal: Yes: Normal Bowel Sounds, Non Tender Genitourinary: Yes: Within Normal Limits Musculoskeletal: Yes: full range of Motion, Gait Steady, Back pain Extremities: Yes: Normal Capillary Refill, Non-Tender 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: Yes: Fully Oriented, Alert, Motor Strength 5/5, Normal Mood/Affect Integumentary: Yes: Normal Color, Dry, Warm, Track Pineda - Diagnostic (1) Opioid dependence with withdrawal Status: Acute (2) Sedative, hypnotic or anxiolytic dependence with withdrawal, uncomplicated Status: Acute (3) Cannabis dependence Status: Chronic (4) Chronic back pain Status: Chronic Qualifiers: Back pain location: low back pain Back pain laterality: unspecified Sciatica presence: without sciatica Qualified Code(s): M54.5 - Low back pain; G89.29 - Other chronic pain (5) Cocaine dependence Status: Chronic Qualifiers: Substance use status: uncomplicated Qualified Code(s): F14.20 - Cocaine dependence, uncomplicated (6) Nicotine dependence Status: Chronic Qualifiers: Nicotine product type: cigarettes Substance use status: uncomplicated Qualified Code(s): F17.210 - Nicotine dependence, cigarettes, uncomplicated BHS Breath Alcohol Content Breath Alcohol Content: 0 Urine Drug Screen - Results Drug Screen Negative: No Urine Drug Screen Results: THC-Marijuana, MACY-Cocaine, OPI-Opiates, MDMA-Ecstasy , BAR-Barbiturates, MTD-Methadone, OXY-Oxycodone, FEN-Fentanyl
[2018-04-29] MEDS ORDERED: ACETAMINOPHEN 325 MG TABLET (FP) PO PRN (20:50)
[2018-04-29] MEDS ORDERED: MAGNESIUM CITRATE 300 ML BOTTLE PO PRN (20:50)
[2018-04-29] MEDS ORDERED: P-EPHED 60MG/TRIPROLIDI 2.5MG TABLET PO PRN (20:50)
[2018-04-29] MEDS ORDERED: IBUPROFEN 400 MG TABLET (FP) PO PRN (20:50)
[2018-04-29] MEDS ORDERED: MAGNESIUM HYDROX 2400MG/30ML ORAL SUSPENSION 30 ML CUP PO PRN (20:50)
[2018-04-29] MEDS ORDERED: MENTHOL/PHENOL 1 EACH UD MM PRN (20:50)
[2018-04-29] MEDS ORDERED: guaiFENesin/D-METHORPHAN HB 10 ML UNIT-DOSE CUPS PO PRN (20:50)
[2018-04-29] MEDS ORDERED: MAG HYDROX/AL HYDROX/SIMETH 30 ML UNIT-DOSE CUP PO PRN (20:50)
[2018-04-29] MEDS ORDERED: chlordiazePOXIDE HCL 25 MG CAPSULE PO PRN (20:50)
[2018-04-29] MEDS ORDERED: LIDOCAINE 5% TOPICAL PATCH TP SCH (20:53)
[2018-04-29] MEDS ORDERED: METHADONE HCL 10 MG TABLET (FOR DETOX USE ONLY) PO ONE (22:00)
[2018-04-29] MEDS ORDERED: LIDOCAINE PATCH REMOVAL MC SCH (22:00)
[2018-04-29] MEDS ORDERED: MELATONIN 5 MG TABLETS PO PRN (22:00)
[2018-04-29] MEDS ORDERED: THIAMINE HCL 100 MG TABLET (FP) PO SCH (22:00)
[2018-04-29] MEDS: chlordiazePOXIDE HCL 25 MG CAPSULE PO SCH ×3 (23:44→23:46)
[2018-04-29 23:47] VITALS: BP 129/78; PULSE 48; TEMP 97.1
[2018-04-30] MEDS ORDERED: chlordiazePOXIDE HCL 25 MG CAPSULE PO SCH (05:00)
--- NOTE | 2018-04-30 08:28 | DS ---
[facility] Detox Discharge Summary Admission Date: 04/29/18 Discharge Date: 04/30/18 - History Present History: Alcohol Dependence, Opioid Dependence, Sedative Dependence Additional Comments: Patient insist on leaving AMA. Patient very agitated. Patient advised to continue treatment and make aware of the risk of interrupting treatment at this time, which include risk for relapse and even . If worsening symptoms patient to go ED. Patient verbalizes understanding. - Physical Exam Results Vital Signs: Vital Signs Temperature 97.1 F L 04/29/18 23:46 Pulse Rate 48 L 04/29/18 23:46 Respiratory Rate 18 04/30/18 06:30 Blood Pressure 129/78 04/29/18 23:46 O2 Sat by Pulse Oximetry (%) Pertinent Admission Physical Exam Findings: Vital Signs Temperature 97.1 F L 04/29/18 23:46 Pulse Rate 48 L 04/29/18 23:46 Respiratory Rate 18 04/30/18 06:30 Blood Pressure 129/78 04/29/18 23:46 O2 Sat by Pulse Oximetry (%) - Medication Discharge Medications: Ambulatory Orders NK [No Known Home Medication] 11/10/17 - Diagnosis (1) Alcohol dependence with uncomplicated withdrawal Status: Acute (2) Opioid dependence with withdrawal Status: Acute (3) Sedative, hypnotic or anxiolytic dependence with withdrawal, uncomplicated Status: Acute (4) Nicotine dependence Status: Chronic Qualifiers: Nicotine product type: cigarettes Substance use status: uncomplicated Qualified Code(s): F17.210 - Nicotine dependence, cigarettes, uncomplicated - AMA Did Patient Leave Against Medical Advice: Yes
[2018-04-30] MEDS ORDERED: PRENATAL VITAMINS W/ FOLIC ACID TABLET (FP) PO SCH (10:00)
[2018-04-30] MEDS ORDERED: METHADONE HCL 5 MG TABLET (FOR DETOX USE ONLY) PO SCH (10:00)
[2018-04-30] MEDS ORDERED: NICOTINE 14 MG/24 HOURS TOPICAL PATCH TD SCH (10:00)
[2018-05-01] MEDS ORDERED: chlordiazePOXIDE 5 MG CAPSULE PO SCH (05:00)
[2018-05-01] MEDS ORDERED: METHADONE HCL 5 MG TABLET (FOR DETOX USE ONLY) PO SCH (10:00)
--- NOTE | 2018-05-01 19:32 | EKG ---
Test Reason : Blood Pressure : / mmHG Vent. Rate : 056 BPM Atrial Rate : 056 BPM P-R Int : 154 ms QRS Dur : 082 ms QT Int : 456 ms P-R-T Axes : 067 060 063 degrees QTc Int : 440 ms SINUS BRADYCARDIA WITH SINUS ARRHYTHMIA OTHERWISE NORMAL ECG WHEN COMPARED WITH ECG OF 23-MAR-2018 15:43, NO SIGNIFICANT CHANGE WAS FOUND Confirmed by CHIO PERES MD ([id number]) on 05/01/2018 7:32:22 PM Referred By: Confirmed By:CHIO PERES MD
[2018-05-02] MEDS ORDERED: chlordiazePOXIDE HCL 10 MG CAPSULE PO SCH (05:00)
[2018-05-02] MEDS ORDERED: METHADONE HCL 10 MG TABLET (FOR DETOX USE ONLY) PO SCH (10:00)
[2018-05-03] MEDS ORDERED: METHADONE HCL 10 MG TABLET (FOR DETOX USE ONLY) PO SCH (06:00)
== END 2018-04-30 09:03 | disposition left against medical advice (07) | DRG 770 ==
LOC: YASAS 13:34 → Y3N 22:31
PROC: HZ2ZZZZ Detoxification Services for Substance Abuse Treatment (ICD-10-PCS; principal; 2018-04-29)
DX: F11.23 Opioid dependence with withdrawal (principal); F10.230 Alcohol dependence with withdrawal, uncomplicated; F13.230 Sedative, hypnotic or anxiolytic dependence with withdrawal, uncomplicated; F14.20 Cocaine dependence, uncomplicated; F12.20 Cannabis dependence, uncomplicated; F17.213 Nicotine dependence, cigarettes, with withdrawal; F31.9 Bipolar disorder, unspecified; M54.5 Low back pain; G89.29 Other chronic pain; Z86.69 Personal history of other diseases of the nervous system and sense organs; Z86.19 Personal history of other infectious and parasitic diseases
CPT/HCPCS: 93005; 93010

== ENCOUNTER 2018-07-07 09:37 | Inpatient (IN) | payer OTHER ==
[2018-07-07 10:03] VITALS: BMI 22.2
--- NOTE | 2018-07-07 12:36 | HP ---
COWS - Scale Resting Pulse: 0= [place] 80 or Below Sweatin= Chills/Flushing Restless Observation: 1= Difficult to Sit Still Pupil Size: 1= Pupils >than Normal Bone or Joint Aches: 2= Severe Diffuse Aches Runny Nose/ Eye Tearin= Runny Nose/Eyes GI Upset > 30mins: 1= Stomach Cramp Tremor Observation: 0= None Yawning Observation: 0= None Anxiety or Irritability: 4=Extreme Anxiety Goose Flesh Skin: 0=Smooth Skin COWS Score: 12 CIWA Score Nausea/Vomitin-No Nausea/No Vomiting Muscle Tremors: None Anxiety: 4-Mod. Anxious/Guarded Agitation: 1-Slight > Activity Paroxysmal Sweats: 1-Minimal Palms Moist Orientation: 0-Oriented Tacttile Disturbances: 0-None Auditory Disturbances: 0-None Visual Disturbances: 0-None Headache: 0-None Present CIWA-Ar Total Score: 6 - Admission Criteria OASAS Guidelines: Admission for Medically Managed Detox: Requires at least one of the followin. CIWA greater than 12 2. Seizures within the past 24 hours 3. Delirium tremens within the past 24 hours 4. Hallucinations within the past 24 hours 5. Acute intervention needed for co occurring medical disorder 6. Acute intervention needed for co occurring psychiatric disorder 7. Severe withdrawal that cannot be handled at a lower level of care (continued vomiting, continued diarrhea, abnormal vital signs) requiring intravenous medication and/or fluids 8. Patient presents the following: Seizures, delirium tremens or hallucinations in the past 12 hours Admission Criteria Met: Admission criteria met Admission ROS [facility] Allergies/Adverse Reactions: Allergies Allergy/AdvReac Type Severity Reaction Status Date / Time venom-honey bee Allergy Severe Swelling Verified 07/07/18 13:08 [bee venom (honey bee)] Fish Containing Products Allergy Mild Difficulty Verified 07/07/18 13:08 Breathing No Known Drug Allergies Allergy Verified 07/07/18 13:08 bee stings Allergy Severe Swelling Uncoded 07/07/18 13:08 History of Present Illness: patient here requesting detox from heroin use , reports IVDU heroin 15-20 bags mani UE , needles from the exchange ,denies sharing , or re-using , + abscess in the past several years ago, OD x 15 most recently 8 mo ago , Narcan at needle exchange program , most recent detox [facility] 1 mo ago . [facility] , max dose 200 mg , incarcerated latest 4 mo ago for shoplifting, total lifetime incarceration : 15 years intermittently since age 10 . etoh : 3 x 24 -oz beers , liquor 1/2 pint of vodka 5 d/ week , + seizure in the past , + tremors in the mornings upon awakening, + blackouts, denies falls while intoxicated . [facility] admission in the last 30 days , d/c Jun 21 , per pt given Seroquel, Remeron , Risperdal & Gabapentin , tobacco : 1 ppd cocaine : IVDU daily 60 $/day , finances habit through theft and from family utox : bup - reports took illicit Suboxone 1 week ago , + fen denies knowingly using , + opi, + mtd, + bar , + bzo PMHX / PSHX : denies PSych :ADHD , bipolar d/o , depression , anxiety SHX : lives w/ mother , unemployed Exam Limitations: No Limitations - Ebola screening Have you traveled outside of the country in the last 21 days: No Have you had contact with anyone from an Ebola affected area: No Have you been sick,other than usual withdrawal symptoms: No Do you have a fever: No - Review of Systems Constitutional: See HPI EENT: reports: Other (upper and lower dentures , denies vision changes) Respiratory: reports: Other (reports recent URI) Cardiac: reports: No Symptoms Reported GI: reports: See HPI : reports: No Symptoms Reported Musculoskeletal: reports: Back Pain, Muscle Weakness Integumentary: reports: Other (UE track pineda) Neuro: reports: See HPI Endocrine: reports: No Symptoms Reported Psychiatric: reports: Orientated x3 Patient History - Patient Medical History Hx Anemia: No Hx Asthma: No Hx Chronic Obstructive Pulmonary Disease (COPD): No Hx Cancer: No Hx Cardiac Disorders: No Hx Congestive Heart Failure: No Hx Hypertension: No Hx Hypercholesterolemia: No Hx Pacemaker: No HX Cerebrovascular Accident: No Hx Seizures: Yes (2005) Hx Dementia: No Hx Diabetes: No Hx Gastrointestinal Disorders: No Hx Liver Disease: Yes (Hep C and treated ) Hx Genitourinary Disorders: No Hx Sexually Transmitted Disorders: No Hx Renal Disease (ESRD): No Hx Thyroid Disease: No Hx Human Immunodeficiency Virus (HIV): No (negative) Hx Hepatitis C: Yes (treated - undetectable vl) Hx Depression: Yes Hx Suicide Attempt: No Hx Bipolar Disorder: Yes (reports no psych tx in years/ adhd) Hx Schizophrenia: No - Patient Surgical History Past Surgical History: No Hx Neurologic Surgery: No Hx Cataract Extraction: No Hx Cardiac Surgery: No Hx Lung Surgery: No Hx Breast Surgery: No Hx Breast Biopsy: No Hx Abdominal Surgery: No Hx Appendectomy: No Hx Cholecystectomy: No Hx Genitourinary Surgery: No Hx Section: No Hx Orthopedic Surgery: No Other Surgical History: Sx for abscess Drainage + TISSUE REMOVAL R hand in 04/04 , Tonsillectomy 7y Anesthesia Reaction: No - PPD History Date: 03/25/18 Results: 0 mm - Smoking Cessation Smoking history: Current every day smoker Have you smoked in the past 12 months: Yes Aproximately how many cigarettes per day: 20 Cigars Per Day: 0 Hx Chewing Tobacco Use: No Initiated information on smoking cessation: No - Substances Abused Heroin Route: Injection Frequency: Daily Amount used: 15-20 BAGS Age of first use: 16 Date of Last Use: 07/07/18 Cocaine Route: Injection Frequency: Daily Amount used: $60 Age of first use: 13 Date of Last Use: 07/07/18 Alcohol Route: Oral Frequency: 3-6 times per week Amount used: 3-4 24 OZ BEERS/ 1/2 PINT VODKA Age of first use: 7 Date of Last Use: 07/06/18 XANAX OR KLONOPIN Route: Oral Frequency: Daily Amount used: 4-8MG Age of first use: 12 Date of Last Use: 07/06/18 Family Disease History - Family Disease History Family Disease History: Heart Disease: Mother (hx CVA - alive), Other: Mother Admission Physical Exam S - Vital Signs Vital Signs: Vital Signs - 24 hr 07/07/18 09:57 Temperature 97.7 F Pulse Rate 77 Respiratory 16 Rate Blood Pressure 115/73 - Physical General Appearance: Yes: Disheveled, Moderate Distress HEENTM: Yes: EOMI, Hearing grossly Normal, Normocephalic, Nasal Congestion, Rhinorrhea (edentulous , upper and lower dentures), Muffled/Hoarse Voice Respiratory: Yes: Chest Non-Tender, No Accessory Muscle Use, Rhonchi Neck: Yes: No masses,lesions,Nodules, Trachea in good position Cardiology: Yes: Regular Rhythm, Regular Rate, S1, S2 Abdominal: Yes: Normal Bowel Sounds, Non Tender, Flat, Soft Back: Yes: Normal Inspection Musculoskeletal: Yes: Gait Steady Extremities: Yes: Normal Range of Motion, Tremors, Erythema (IVDU track pineda , recent w/ ecchymosis dorsum of hands and right forearm) 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: Yes: Fully Oriented, Alert, Motor Strength 5/5 Integumentary: Yes: Normal Color, Warm, Track Pineda - Diagnostic (1) Alcohol dependence with uncomplicated withdrawal Current Visit: No Status: Acute (2) Opioid dependence with withdrawal Current Visit: No Status: Acute (3) Cocaine dependence Current Visit: No Status: Chronic Qualifiers: Substance use status: uncomplicated Qualified Code(s): F14.20 - Cocaine dependence, uncomplicated (4) Nicotine dependence Current Visit: No Status: Chronic Qualifiers: Nicotine product type: cigarettes Substance use status: uncomplicated Qualified Code(s): F17.210 - Nicotine dependence, cigarettes, uncomplicated BHS Breath Alcohol Content Breath Alcohol Content: 0 Urine Drug Screen - Results Drug Screen Negative: No Urine Drug Screen Results: RENAE-Cocaine, OPI-Opiates, BAR-Barbiturates, BZO- Benzodiazepines, MTD-Methadone, FEN-Fentanyl, BUP-Suboxone
[2018-07-07] MEDS ORDERED: ACETAMINOPHEN 325 MG TABLET (FP) PO PRN (12:49)
[2018-07-07] MEDS ORDERED: MAGNESIUM CITRATE 300 ML BOTTLE PO PRN (12:49)
[2018-07-07] MEDS ORDERED: P-EPHED 60MG/TRIPROLIDI 2.5MG TABLET PO PRN (12:49)
[2018-07-07] MEDS ORDERED: IBUPROFEN 400 MG TABLET (FP) PO PRN (12:49)
[2018-07-07] MEDS ORDERED: MAGNESIUM HYDROX 2400MG/30ML ORAL SUSPENSION 30 ML CUP PO PRN (12:49)
[2018-07-07] MEDS ORDERED: MENTHOL/PHENOL 1 EACH UD MM PRN (12:49)
[2018-07-07] MEDS ORDERED: MAG HYDROX/AL HYDROX/SIMETH 30 ML UNIT-DOSE CUP PO PRN (12:49)
[2018-07-07] MEDS ORDERED: NICOTINE POLACRILEX 2 MG GUM BUC PRN (12:49)
[2018-07-07] MEDS ORDERED: METHADONE HCL 10 MG TABLET (FOR DETOX USE ONLY) PO ONE ×2 (14:00→23:00)
--- NOTE | 2018-07-07 14:03 | CONSULT ---
[facility] Psychiatric Consult - Data Date of interview: 07/07/18 Admission source: [facility] Identifying data: This is 37 years old male,single, unemployed, living with Mother, on PA support, with history of Bipolar Disorder, ADHD, with psychiatric hospitalization history, reports abusing Heroin, Alcohol, Benzodiazepins, Cocaine and Nicotine. Patient reports withdrawal symptoms amd seeking detox. Substance Abuse History: Smoking Cessation. Smoking history: Current every day smoker. Have you smoked in the past 12 months: Yes. Aproximately how many cigarettes per day: 20. Cigars Per Day: 0. Hx Chewing Tobacco Use: No. Patient reports abusing Heroin, Alcohol and Nicotine since long time ago Medical History: HEPc+, Seizure history, LBP Psychiatric History: Patient suffers from Bipolar Disorder, ADHD, reports anxiety and deprerssion, reports most recent psychiatric admission to [facility] for safety on 2 weeks ago, and dicharge on: Gabapentin 800mg po tid. Seroquel 200mg po bid. Risperdal 2mg po bid. Remeron 15mg po qhs. Patient denies suicidal, homicidal history Physical/Sexual Abuse/Trauma History: Denies Additional Comment: Seroquel 200mg po bid. Risperdal 3mg po bid. Remeron 15mg po qhs. Gabapentin 800mg po tid Mental Status Exam - Mental Status Exam Alert and Oriented to: Person Cognitive Function: Fair Patient Appearance: Unkempt Mood: Anxious Affect: Mood Congruent Patient Behavior: Talkative, Cooperative, Agitated Speech Pattern: Excessive Voice Loudness: Normal Thought Process: Circumstantial, Goal Oriented Thought Disorder: Being Controlled Hallucinations: Denies Suicidal Ideation: Denies Homicidal Ideation: Denies Insight/Judgement: Fair Sleep: Difficulty falling asleep Appetite: Weight loss Muscle strength/Tone: Mild Hypertonicity Gait/Station: Normal Additional Comments: Gabapentin 800mg po tid. Seroquel 200mg po bid. Risperdal 3mg po bid. Remeron 15mg po qhs Psychiatric Findings - Problem List ([place] 1, 2,3) (1) Alcohol dependence with uncomplicated withdrawal Current Visit: No Status: Acute (2) Hyperglycemia Current Visit: No Status: Acute (3) Opioid dependence with withdrawal Current Visit: No Status: Acute (4) Sedative, hypnotic or anxiolytic dependence with withdrawal, uncomplicated Current Visit: No Status: Acute (5) Substance induced mood disorder Current Visit: No Status: Acute (6) Substance-induced sleep disorder Current Visit: No Status: Acute (7) Bipolar disorder Current Visit: No Status: Chronic Qualifiers: Active/Remission status: remission status unspecified Qualified Code(s): F31.9 - Bipolar disorder, unspecified (8) Cannabis dependence Current Visit: No Status: Chronic (9) Chronic back pain Current Visit: No Status: Chronic Qualifiers: Back pain location: low back pain Back pain laterality: unspecified Sciatica presence: without sciatica Qualified Code(s): M54.5 - Low back pain; G89.29 - Other chronic pain (10) Cocaine dependence Current Visit: No Status: Chronic Qualifiers: Substance use status: uncomplicated Qualified Code(s): F14.20 - Cocaine dependence, uncomplicated (11) Hepatitis C Current Visit: No Status: Chronic Qualifiers: Viral hepatitis chronicity: chronic Hepatic coma status: without hepatic coma Qualified Code(s): B18.2 - Chronic viral hepatitis C Comment: completed treatment (12) Weight decreased Current Visit: No Status: Chronic (13) ADHD (attention deficit hyperactivity disorder) Current Visit: No Status: Suspected Qualifiers: Attention deficit-hyperactivity disorder type: other Qualified Code(s): F90.8 - Attention-deficit hyperactivity disorder, other type - Initial Treatment Plan Initial Treatment Plan: Gabapentin 800mg po tid. Seroquel 200mg po bid. Risperdal 2mg po bid. Remeron 15mg po qhs
[2018-07-07] MEDS: diazePAM 5 MG TABLET PO SCH ×2 (15:24→22:27)
[2018-07-07] MEDS: GABAPENTIN 400 MG CAPSULE (FP) PO SCH ×2 (17:31→22:27)
[2018-07-07] MEDS ORDERED: MELATONIN 5 MG TABLETS PO PRN (22:00)
[2018-07-07] MEDS: SULFAMETHOXAZOLE/TRIMETHOPRIM 800MG/160MG D.S. TABLET PO SCH ×2 (22:26→22:29)
[2018-07-07] MEDS: MIRTAZAPINE 15 MG TABLET (FP) PO SCH (22:27)
[2018-07-07] MEDS: risperiDONE 2 MG TABLET PO SCH (22:27)
[2018-07-07] MEDS: QUEtiapine FUMARATE 200 MG TABLET PO SCH (22:27)
[2018-07-07] MEDS: THIAMINE HCL 100 MG TABLET (FP) PO SCH (22:30)
[2018-07-08] MEDS: GABAPENTIN 400 MG CAPSULE (FP) PO SCH ×3 (05:57→22:17)
[2018-07-08] MEDS: diazePAM 5 MG TABLET PO SCH ×3 (05:57→22:17)
[2018-07-08] MEDS ORDERED: METHADONE HCL 10 MG TABLET (FOR DETOX USE ONLY) PO SCH (10:00)
[2018-07-08 10:01] LABS: HEMATOCRIT 37.4 % (35.4-49); HEMOGLOBIN 12.5 GM/dL (11.7-16.9); MCH 28.4 pg (25.7-33.7); MCHC 33.4 g/dl (32.0-35.9); MEAN PLT VOLUME 8.1 fl (7.5-11.1); PLATELET COUNT 222 K/MM3 (134-434); RDW 15.4 % (11.9-15.9); WHITE BLOOD COUNT 8.8 K/mm3 (4.0-10.0)
[2018-07-08] MEDS: PRENATAL VITAMINS W/ FOLIC ACID TABLET (FP) PO SCH (10:16)
[2018-07-08] MEDS: risperiDONE 2 MG TABLET PO SCH ×2 (10:17→22:17)
[2018-07-08] MEDS: QUEtiapine FUMARATE 200 MG TABLET PO SCH ×2 (10:17→22:17)
[2018-07-08] MEDS: SULFAMETHOXAZOLE/TRIMETHOPRIM 800MG/160MG D.S. TABLET PO SCH ×2 (10:17→22:17)
[2018-07-08] MEDS: guaiFENesin/D-METHORPHAN HB 10 ML UNIT-DOSE CUPS PO PRN ×2 (10:19→15:37)
[2018-07-08] MEDS ORDERED: LIDOCAINE 5% TOPICAL PATCH TP ONE (10:21)
[2018-07-08 10:27] LABS: ALBUMIN 2.9 g/dl (3.4-5.0); ALK PHOS 62 U/L (45-117); ANION GAP 7 MMOL/L (8-16); BILIRUBIN,TOTAL 0.3 mg/dL (0.2-1); BLOOD UREA NITROGEN 15 mg/dL (7-18); CALCIUM 8.4 mg/dL (8.5-10.1); CHLORIDE 111 mmol/L (98-107); CO2 27 mmol/L (21-32); CREATININE 0.7 mg/dL (0.55-1.3); GLUCOSE,RANDOM 79 mg/dL (74-106); POTASSIUM 4.2 mmol/L (3.5-5.1); SGOT/AST 7 U/L (15-37); SGPT/ALT 14 U/L (13-61); SODIUM 145 mmol/L (136-145); TOT PROT 5.8 g/dl (6.4-8.2)
[2018-07-08] MEDS: NICOTINE 21 MG/24 HOURS TOPICAL PATCH TD SCH (11:03)
--- NOTE | 2018-07-08 11:44 | PN ---
[facility] CIWA - CIWA Score Nausea/Vomitin-No Nausea/No Vomiting Muscle Tremors: 3 Anxiety: 3 Agitation: 3 Paroxysmal Sweats: 3 Orientation: 0-Oriented Tacttile Disturbances: 0-None Auditory Disturbances: 0-None Visual Disturbances: 0-None Headache: 0-None Present CIWA-Ar Total Score: 12 BHS COWS - Scale Resting Pulse: 1= [place] 81-100 Sweatin=Flushed/Facial Moisture Restless Observation: 1= Difficult to Sit Still Pupil Size: 0= Normal to Room Light Bone or Joint Aches: 2= Severe Diffuse Aches Runny Nose/ Eye Tearin= Nasal Congestion GI Upset > 30mins: 1= Stomach Cramp Tremor Observation of Outstretched Hands: 2= Slight Tremor Visible Yawning Observation: 2= >3x During Session Anxiety or Irritability: 2=Irritable/Anxious Goose Flesh Skin: 0=Smooth Skin COWS Score: 14 BHS Progress Note (SOAP) Subjective: sweats shakes interrupted sleep body aches low back pain irritable anxiety i need a nicotine patch Objective: 07/08/18 11:43 Vital Signs Temperature 98.4 F 07/08/18 09:53 Pulse Rate 90 07/08/18 09:53 Respiratory Rate 18 07/08/18 09:53 Blood Pressure 135/69 07/08/18 09:53 O2 Sat by Pulse Oximetry (%) Laboratory Tests 07/08/18 07/08/18 07:00 08:32 WBC 8.8 RBC 4.40 Hgb 12.5 Hct 37.4 D MCV 85.0 MCH 28.4 MCHC 33.4 RDW 15.4 Plt Count 222 MPV 8.1 Sodium 145 Potassium 4.2 Chloride 111 H Carbon Dioxide 27 Anion Gap 7 L BUN 15 Creatinine 0.7 Creat Clearance w eGFR > 60 Random Glucose 79 Calcium 8.4 L Total Bilirubin 0.3 AST 7 L ALT 14 Alkaline Phosphatase 62 Total Protein 5.8 L Albumin 2.9 L aaox3 ambulating no acute distress Assessment: 07/08/18 11:44 withdrawal sx Plan: continue detox increase fluids lidocaine patch nicotine patch
[2018-07-08] MEDS: diazePAM 5 MG TABLET PO PRN (14:26)
[2018-07-08] MEDS ORDERED: AZITHROMYCIN 250 MG TABLET PO ONE (17:00)
[2018-07-08] MEDS: MIRTAZAPINE 15 MG TABLET (FP) PO SCH (22:17)
[2018-07-08] MEDS: guaiFENesin 600 MG TABLET.ER (FP) PO SCH (22:17)
[2018-07-08] MEDS: THIAMINE HCL 100 MG TABLET (FP) PO SCH (22:17)
[2018-07-08] MEDS: LIDOCAINE PATCH REMOVAL MC SCH (22:18)
[2018-07-09] MEDS: guaiFENesin/D-METHORPHAN HB 10 ML UNIT-DOSE CUPS PO PRN ×2 (00:51→10:39)
[2018-07-09] MEDS: GABAPENTIN 400 MG CAPSULE (FP) PO SCH ×3 (05:45→22:43)
[2018-07-09] MEDS ORDERED: METHADONE HCL 5 MG TABLET (FOR DETOX USE ONLY) PO SCH (10:00)
[2018-07-09] MEDS: NICOTINE 21 MG/24 HOURS TOPICAL PATCH TD SCH (10:32)
[2018-07-09] MEDS: diazePAM 5 MG TABLET PO SCH ×2 (10:33→22:44)
[2018-07-09] MEDS: AZITHROMYCIN 250 MG TABLET PO SCH (10:33)
[2018-07-09] MEDS: guaiFENesin 600 MG TABLET.ER (FP) PO SCH ×2 (10:33→22:43)
[2018-07-09] MEDS: PRENATAL VITAMINS W/ FOLIC ACID TABLET (FP) PO SCH (10:34)
[2018-07-09] MEDS: SULFAMETHOXAZOLE/TRIMETHOPRIM 800MG/160MG D.S. TABLET PO SCH ×2 (10:34→22:43)
[2018-07-09] MEDS: LIDOCAINE 5% TOPICAL PATCH TP SCH (10:35)
[2018-07-09] MEDS: risperiDONE 2 MG TABLET PO SCH ×2 (10:35→22:43)
[2018-07-09] MEDS: QUEtiapine FUMARATE 200 MG TABLET PO SCH ×2 (10:36→22:43)
--- NOTE | 2018-07-09 11:07 | PN ---
S CIWA - CIWA Score Nausea/Vomitin Muscle Tremors: 2 Anxiety: 2 Agitation: 2 Paroxysmal Sweats: 2 Orientation: 0-Oriented Tacttile Disturbances: 2-Mild Itch/Numbness/Burn Auditory Disturbances: 1-Very Mild Visual Disturbances: 0-None Headache: 2-Mild CIWA-Ar Total Score: 15 BHS COWS - Scale Resting Pulse: 0= [place] 80 or Below Sweatin= Chills/Flushing Restless Observation: 1= Difficult to Sit Still Pupil Size: 0= Normal to Room Light Bone or Joint Aches: 1= Mild Discomfort Runny Nose/ Eye Tearin= Nasal Congestion GI Upset > 30mins: 2= Nausea/Diarrhea Tremor Observation of Outstretched Hands: 2= Slight Tremor Visible Yawning Observation: 0= None Anxiety or Irritability: 1=Feels Anxious/Irritable Goose Flesh Skin: 3=Piloerection COWS Score: 12 BHS Progress Note (SOAP) Subjective: Interrupted sleep, shakes, sweats, abdominal cramps and back pain Objective: 07/09/18 11:04 Vital Signs - 8 hr 07/09/18 07/09/18 07/09/18 03:30 08:17 09:45 Temperature 97.7 F 97.7 F Pulse Rate 63 89 Respiratory 18 18 18 Rate Blood Pressure 129/68 140/65 Laboratory Last Values WBC 8.8 K/mm3 (4.0-10.0) 07/08/18 08:32 RBC 4.40 M/mm3 (4.00-5.60) 07/08/18 08:32 Hgb 12.5 GM/dL (11.7-16.9) 07/08/18 08:32 Hct 37.4 % (35.4-49) D 07/08/18 08:32 MCV 85.0 fl (80-96) 07/08/18 08:32 MCH 28.4 pg (25.7-33.7) 07/08/18 08:32 MCHC 33.4 g/dl (32.0-35.9) 07/08/18 08:32 RDW 15.4 % (11.9-15.9) 07/08/18 08:32 Plt Count 222 K/MM3 (134-434) 07/08/18 08:32 MPV 8.1 fl (7.5-11.1) 07/08/18 08:32 Sodium 145 mmol/L (136-145) 07/08/18 07:00 Potassium 4.2 mmol/L (3.5-5.1) 07/08/18 07:00 Chloride 111 mmol/L (98-107) H 07/08/18 07:00 Carbon Dioxide 27 mmol/L (21-32) 07/08/18 07:00 Anion Gap 7 MMOL/L (8-16) L 07/08/18 07:00 BUN 15 mg/dL (7-18) 07/08/18 07:00 Creatinine 0.7 mg/dL (0.55-1.3) 07/08/18 07:00 Creat Clearance w eGFR > 60 (>60) 07/08/18 07:00 Random Glucose 79 mg/dL (74-106) 07/08/18 07:00 Calcium 8.4 mg/dL (8.5-10.1) L 07/08/18 07:00 Total Bilirubin 0.3 mg/dL (0.2-1) 07/08/18 07:00 AST 7 U/L (15-37) L 07/08/18 07:00 ALT 14 U/L (13-61) 07/08/18 07:00 Alkaline Phosphatase 62 U/L (45-117) 07/08/18 07:00 Total Protein 5.8 g/dl (6.4-8.2) L 07/08/18 07:00 Albumin 2.9 g/dl (3.4-5.0) L 07/08/18 07:00 RPR Titer Nonreactive (NONREACTIVE) 07/08/18 07:00 HIV 1&2 Antibody Screen Negative 07/08/18 07:00 HIV P24 Antigen Negative 07/08/18 07:00 Labs noted, no panic values Assessment: 07/09/18 11:06 Withdrawal sx Plan: Continue detox
[2018-07-09] MEDS: diazePAM 5 MG TABLET PO PRN (16:32)
[2018-07-09] MEDS: THIAMINE HCL 100 MG TABLET (FP) PO SCH (22:42)
[2018-07-09] MEDS: MIRTAZAPINE 15 MG TABLET (FP) PO SCH (22:43)
[2018-07-09] MEDS: LIDOCAINE PATCH REMOVAL MC SCH (22:44)
[2018-07-10] MEDS: GABAPENTIN 400 MG CAPSULE (FP) PO SCH (06:47)
[2018-07-10] MEDS: diazePAM 5 MG TABLET PO PRN (06:49)
[2018-07-10 07:49] VITALS: TEMP 97.7
[2018-07-10 09:19] VITALS: BP 120/73; PULSE 101
--- NOTE | 2018-07-10 09:58 | PN ---
BHS Progress Note (SOAP) Subjective: feeling better
[2018-07-10] MEDS ORDERED: METHADONE HCL 10 MG TABLET (FOR DETOX USE ONLY) PO SCH (10:00)
[2018-07-10] MEDS: guaiFENesin 600 MG TABLET.ER (FP) PO SCH (11:00)
[2018-07-10] MEDS: diazePAM 5 MG TABLET PO SCH (11:00)
[2018-07-10] MEDS: SULFAMETHOXAZOLE/TRIMETHOPRIM 800MG/160MG D.S. TABLET PO SCH (11:00)
[2018-07-10] MEDS: risperiDONE 2 MG TABLET PO SCH (11:00)
[2018-07-10] MEDS: AZITHROMYCIN 250 MG TABLET PO SCH (11:00)
[2018-07-10] MEDS: PRENATAL VITAMINS W/ FOLIC ACID TABLET (FP) PO SCH (11:00)
[2018-07-10] MEDS: NICOTINE 21 MG/24 HOURS TOPICAL PATCH TD SCH (11:01)
[2018-07-10] MEDS: QUEtiapine FUMARATE 200 MG TABLET PO SCH (11:01)
[2018-07-10] MEDS: LIDOCAINE 5% TOPICAL PATCH TP SCH (11:15)
--- NOTE | 2018-07-10 13:04 | DS ---
[facility] Detox Discharge Summary Admission Date: 07/07/18 Discharge Date: 07/10/18 - History Present History: Alcohol Dependence, Opioid Dependence Additional Comments: 37 years old male admitted on 07/08/18 for alcohol and opiate withdrawal stabilization reported feeling better today preferred begin chemical rehab today that he can manage mild alcohol and opiate withdrawal alert no acute distress aftercare [facility] - Physical Exam Results Vital Signs: Vital Signs Temperature 97.7 F 07/10/18 09:19 Pulse Rate 101 H 07/10/18 09:19 Respiratory Rate 18 07/10/18 09:19 Blood Pressure 120/73 07/10/18 09:19 O2 Sat by Pulse Oximetry (%) Pertinent Admission Physical Exam Findings: alcohol and opiate withdrawal sx Vital Signs Temperature 97.7 F 07/10/18 09:19 Pulse Rate 101 H 07/10/18 09:19 Respiratory Rate 18 07/10/18 09:19 Blood Pressure 120/73 07/10/18 09:19 O2 Sat by Pulse Oximetry (%) Laboratory Last Values WBC 8.8 K/mm3 (4.0-10.0) 07/08/18 08:32 RBC 4.40 M/mm3 (4.00-5.60) 07/08/18 08:32 Hgb 12.5 GM/dL (11.7-16.9) 07/08/18 08:32 Hct 37.4 % (35.4-49) D 07/08/18 08:32 MCV 85.0 fl (80-96) 07/08/18 08:32 MCH 28.4 pg (25.7-33.7) 07/08/18 08:32 MCHC 33.4 g/dl (32.0-35.9) 07/08/18 08:32 RDW 15.4 % (11.9-15.9) 07/08/18 08:32 Plt Count 222 K/MM3 (134-434) 07/08/18 08:32 MPV 8.1 fl (7.5-11.1) 07/08/18 08:32 Sodium 145 mmol/L (136-145) 07/08/18 07:00 Potassium 4.2 mmol/L (3.5-5.1) 07/08/18 07:00 Chloride 111 mmol/L (98-107) H 07/08/18 07:00 Carbon Dioxide 27 mmol/L (21-32) 07/08/18 07:00 Anion Gap 7 MMOL/L (8-16) L 07/08/18 07:00 BUN 15 mg/dL (7-18) 07/08/18 07:00 Creatinine 0.7 mg/dL (0.55-1.3) 07/08/18 07:00 Creat Clearance w eGFR > 60 (>60) 07/08/18 07:00 Random Glucose 79 mg/dL (74-106) 07/08/18 07:00 Calcium 8.4 mg/dL (8.5-10.1) L 07/08/18 07:00 Total Bilirubin 0.3 mg/dL (0.2-1) 07/08/18 07:00 AST 7 U/L (15-37) L 07/08/18 07:00 ALT 14 U/L (13-61) 07/08/18 07:00 Alkaline Phosphatase 62 U/L (45-117) 07/08/18 07:00 Total Protein 5.8 g/dl (6.4-8.2) L 07/08/18 07:00 Albumin 2.9 g/dl (3.4-5.0) L 07/08/18 07:00 RPR Titer Nonreactive (NONREACTIVE) 07/08/18 07:00 HIV 1&2 Antibody Screen Negative 07/08/18 07:00 HIV P24 Antigen Negative 07/08/18 07:00 lab noted - Treatment Hospital Course: Detox Protocol Followed, Detoxed Safely, Responded well, Discharged Condition Good, Rehab Referral Accepted - Medication Discharge Medications: Ambulatory Orders Gabapentin [Neurontin -] 800 mg PO Q8H #90 capsule 07/07/18 Mirtazapine [Remeron -] 15 mg PO HS #30 tablet 07/07/18 Quetiapine Fumarate [Seroquel -] 200 mg PO BID 07/07/18 Quetiapine Fumarate [Seroquel -] 200 mg PO BID #60 tablet 07/07/18 Risperidone [Risperdal -] 2 mg PO BID #60 tablet 07/07/18 Risperidone [Risperdal -] 3 mg PO BID 07/07/18 Sulfamethoxazole/Trimethoprim [Bactrim DS -] 1 each PO BID #7 tablet 07/10/18 - Diagnosis (1) Alcohol dependence with uncomplicated withdrawal Current Visit: Yes Status: Acute (2) Opioid dependence with withdrawal Current Visit: Yes Status: Acute (3) Substance induced mood disorder Current Visit: Yes Status: Suspected (4) Hepatitis C Current Visit: Yes Status: Chronic Qualifiers: Viral hepatitis chronicity: chronic Hepatic coma status: without hepatic coma Qualified Code(s): B18.2 - Chronic viral hepatitis C (5) Nicotine dependence Current Visit: Yes Status: Acute Qualifiers: Nicotine product type: cigarettes Substance use status: in withdrawal Qualified Code(s): F17.213 - Nicotine dependence, cigarettes, with withdrawal (6) Weight decreased Current Visit: Yes Status: Acute - AMA Did Patient Leave Against Medical Advice: No
[2018-07-11] MEDS ORDERED: METHADONE HCL 5 MG TABLET (FOR DETOX USE ONLY) PO SCH (06:00)
[2018-07-11] MEDS ORDERED: diazePAM 5 MG TABLET PO SCH (10:00)
[2018-07-11] MEDS ORDERED: METHADONE HCL 10 MG TABLET (FOR DETOX USE ONLY) PO SCH (10:00)
[2018-07-12] MEDS ORDERED: METHADONE HCL 5 MG TABLET (FOR DETOX USE ONLY) PO SCH (06:00)
== END 2018-07-10 11:21 | disposition home or self-care (01) | DRG 773 ==
LOC: YASAS 09:37 → Y6N 13:39
PROVIDERS: ADMIT Neuromusculoskeletal Medicine & OMM; ATTEND Neuromusculoskeletal Medicine & OMM
PROC: HZ2ZZZZ Detoxification Services for Substance Abuse Treatment (ICD-10-PCS; principal; 2018-07-07)
DX: F11.23 Opioid dependence with withdrawal (principal); F10.230 Alcohol dependence with withdrawal, uncomplicated; F13.230 Sedative, hypnotic or anxiolytic dependence with withdrawal, uncomplicated; F14.20 Cocaine dependence, uncomplicated; F17.213 Nicotine dependence, cigarettes, with withdrawal; F31.9 Bipolar disorder, unspecified; F40.8 Other phobic anxiety disorders; B18.2 Chronic viral hepatitis C; R73.9 Hyperglycemia, unspecified; M54.5 Low back pain; G89.29 Other chronic pain; Z86.69 Personal history of other diseases of the nervous system and sense organs; Z91.013 Allergy to seafood; Z91.038 Other insect allergy status
CPT/HCPCS: 36415; 80053; 85027; 86593; 87389

== ENCOUNTER 2018-08-05 12:46 | Inpatient (IN) | payer OTHER ==
[2018-08-05 13:03] VITALS: BMI 22.6
--- NOTE | 2018-08-05 17:24 | HP ---
COWS - Scale Resting Pulse: 0= [place] 80 or Below Sweatin= Chills/Flushing Restless Observation: 5= Unable to Sit Still Pupil Size: 1= Pupils >than Normal Bone or Joint Aches: 4=Acute Joint/Muscle Pain Runny Nose/ Eye Tearin= Runny Nose/Eyes GI Upset > 30mins: 1= Stomach Cramp Tremor Observation: 1= Tremor Max, Not Seen Yawning Observation: 0= None Anxiety or Irritability: 4=Extreme Anxiety Goose Flesh Skin: 0=Smooth Skin COWS Score: 19 CIWA Score Nausea/Vomitin Muscle Tremors: 1-None Visible, but Max Anxiety: 4-Mod. Anxious/Guarded Agitation: 7-Pacing/Thrashing Paroxysmal Sweats: 3 Orientation: 0-Oriented Tacttile Disturbances: 0-None Auditory Disturbances: 1-Very Mild Visual Disturbances: 1-Very Mild Sensitivity Headache: 2-Mild CIWA-Ar Total Score: 21 - Admission Criteria [facility] Guidelines: Admission for Medically Managed Detox: Requires at least one of the followin. CIWA greater than 12 2. Seizures within the past 24 hours 3. Delirium tremens within the past 24 hours 4. Hallucinations within the past 24 hours 5. Acute intervention needed for co occurring medical disorder 6. Acute intervention needed for co occurring psychiatric disorder 7. Severe withdrawal that cannot be handled at a lower level of care (continued vomiting, continued diarrhea, abnormal vital signs) requiring intravenous medication and/or fluids 8. Patient presents the following: CIWA greater than 12 Admission Criteria Met: Admission criteria met Admission ROS [facility] Allergies/Adverse Reactions: Allergies Allergy/AdvReac Type Severity Reaction Status Date / Time venom-honey bee Allergy Severe Swelling Verified 08/05/18 16:23 [bee venom (honey bee)] Fish Containing Products Allergy Mild Difficulty Verified 08/05/18 16:23 Breathing No Known Drug Allergies Allergy Verified 08/05/18 16:23 bee stings Allergy Severe Swelling Uncoded 08/05/18 16:23 History of Present Illness: pt here requesting detox from opiate , cocaine , etoh use , reports heroin 12- 20 bags/day ivdu " all over " , needles from the exchange, denies sharing, + re-using , + abscess mani UE most recently several years ago , OD x " a few " most recently 1 yr ago , Narcan by EMS , latest use last night , current symptoms as above . Previous detox at this facility . etoh use : 2 beers and 1/4 - 1/2 pint vodka 5 x /week, reports tremors if not drinking , + seizure in the past , latest use yesterday morning , current symptoms as above cannabis : 2 joint / week cocaine : 5 -6 x / week IVDu 60 $ fentanyl : denies mtd : denies benzo : klonopin, xanax - 2 pills /day tobacco : 1 .5 ppd requesting nrt w/ patch . Pmhx/ pShx : denies Psych ; adhd , bipolar d/o , depression, anxiety - Ebola screening Have you traveled outside of the country in the last 21 days: No Have you had contact with anyone from an Ebola affected area: No Have you been sick,other than usual withdrawal symptoms: No - Review of Systems Constitutional: See HPI EENT: reports: See HPI, Other (upper and lower dentures) Respiratory: reports: No Symptoms reported Cardiac: reports: No Symptoms Reported GI: reports: See HPI : reports: No Symptoms Reported Musculoskeletal: reports: Muscle Pain Integumentary: reports: No Symptoms Reported Neuro: reports: See HPI Endocrine: reports: No Symptoms Reported Psychiatric: reports: Orientated x3, Agitated, Anxious Patient History - Patient Medical History Hx Anemia: No Hx Asthma: No Hx Chronic Obstructive Pulmonary Disease (COPD): No Hx Cancer: No Hx Cardiac Disorders: No Hx Congestive Heart Failure: No Hx Hypertension: No Hx Hypercholesterolemia: No Hx Pacemaker: No HX Cerebrovascular Accident: No Hx Seizures: Yes (drug related) Hx Dementia: No Hx Diabetes: No Hx Gastrointestinal Disorders: No Hx Liver Disease: Yes (Hep C and treated ) Hx Genitourinary Disorders: No Hx Sexually Transmitted Disorders: No Hx Renal Disease (ESRD): No Hx Thyroid Disease: No Hx Human Immunodeficiency Virus (HIV): No (negative) Hx Hepatitis C: Yes (treated - undetectable vl) Hx Depression: Yes Hx Suicide Attempt: Yes (Tried to jump in traffic in 2013) Hx Bipolar Disorder: Yes (reports no psych tx in years/ adhd) Hx Schizophrenia: No - Patient Surgical History Past Surgical History: No Hx Neurologic Surgery: No Hx Cataract Extraction: No Hx Cardiac Surgery: No Hx Lung Surgery: No Hx Breast Surgery: No Hx Breast Biopsy: No Hx Abdominal Surgery: No Hx Appendectomy: No Hx Cholecystectomy: No Hx Genitourinary Surgery: No Hx Section: No Hx Orthopedic Surgery: No Other Surgical History: Sx for abscess Drainage + TISSUE REMOVAL R hand in 04/04 , Tonsillectomy 7y Anesthesia Reaction: No - PPD History Previous Implant?: Yes Documented Results: Negative w/proof Implanted On Prior [facility] Admission?: Yes Date: 07/09/18 Results: 0 mm - Smoking Cessation Smoking history: Current every day smoker Have you smoked in the past 12 months: Yes Aproximately how many cigarettes per day: 20 Cigars Per Day: 0 Hx Chewing Tobacco Use: No Initiated information on smoking cessation: No - Substances Abused Heroin Route: Injection Frequency: Daily Amount used: 13-10 bags Age of first use: 16 Date of Last Use: 08/05/18 Alcohol Route: Oral Frequency: Daily Amount used: 2 beers/ 1/2 pint vodka Age of first use: 7 Date of Last Use: 08/04/18 Marijuana/Hashish Route: Smoking Frequency: 1-2 times per week Amount used: 2 joints Age of first use: 10 Date of Last Use: 08/03/18 xanax or klonopin Route: Oral Frequency: Daily Amount used: 4-8mg Age of first use: 13 Date of Last Use: 08/03/18 Family Disease History - Family Disease History Family Disease History: Heart Disease: Mother (hx CVA - alive), Other: Mother Admission Physical Exam S - Vital Signs Vital Signs: Vital Signs - 24 hr 08/05/18 13:02 Temperature 98 F Pulse Rate 79 Respiratory 20 Rate Blood Pressure 120/72 - Physical General Appearance: Yes: Disheveled, Severe Distress, Intoxicated, Irritable, Sweating, Anxious HEENTM: Yes: EOMI, Hearing grossly Normal, Normocephalic, Normal Voice Respiratory: Yes: Chest Non-Tender, Lungs Clear, Normal Breath Sounds Neck: Yes: No masses,lesions,Nodules, Trachea in good position Cardiology: Yes: Regular Rhythm, Regular Rate, S1, S2 Abdominal: Yes: Normal Bowel Sounds, Non Tender, Soft Genitourinary: Yes: Within Normal Limits Back: Yes: Normal Inspection Musculoskeletal: Yes: full range of Motion, Gait Steady Extremities: Yes: Normal Capillary Refill, Normal Range of Motion, Non-Tender 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: Yes: Motor Strength 5/5, Normal Mood/Affect Integumentary: Yes: Normal Color - Diagnostic (1) Alcohol dependence with uncomplicated withdrawal Current Visit: No Status: Acute (2) Nicotine dependence Current Visit: No Status: Chronic Qualifiers: Nicotine product type: cigarettes Substance use status: in withdrawal Qualified Code(s): F17.213 - Nicotine dependence, cigarettes, with withdrawal (3) Opioid dependence with withdrawal Current Visit: No Status: Acute (4) Cannabis dependence Current Visit: No Status: Chronic (5) Cocaine dependence Current Visit: No Status: Chronic Qualifiers: Substance use status: uncomplicated Qualified Code(s): F14.20 - Cocaine dependence, uncomplicated BHS Breath Alcohol Content Breath Alcohol Content: 0 Urine Drug Screen - Results Drug Screen Negative: No Urine Drug Screen Results: THC-Marijuana, OPI-Opiates, BZO-Benzodiazepines, MTD- Methadone, FEN-Fentanyl Inpatient Rehab Admission - Rehab Decision to Admit Inpatient rehab admission?: No
[2018-08-05] MEDS ORDERED: ACETAMINOPHEN 325 MG TABLET (FP) PO PRN (17:30)
[2018-08-05] MEDS ORDERED: MENTHOL/PHENOL 1 EACH UD MM PRN (17:30)
[2018-08-05] MEDS ORDERED: MAGNESIUM CITRATE 300 ML BOTTLE PO PRN (17:30)
[2018-08-05] MEDS ORDERED: IBUPROFEN 400 MG TABLET (FP) PO PRN (17:30)
[2018-08-05] MEDS ORDERED: MAGNESIUM HYDROX 2400MG/30ML ORAL SUSPENSION 30 ML CUP PO PRN (17:30)
[2018-08-05] MEDS ORDERED: NICOTINE POLACRILEX 2 MG GUM BC PRN (17:30)
[2018-08-05] MEDS ORDERED: MAG HYDROX/AL HYDROX/SIMETH 30 ML UNIT-DOSE CUP PO PRN (17:30)
[2018-08-05] MEDS ORDERED: METHADONE HCL 10 MG TABLET (FOR DETOX USE ONLY) PO ONE ×2 (18:00→23:00)
[2018-08-05] MEDS: diazePAM 5 MG TABLET PO PRN (19:03)
[2018-08-05] MEDS: LIDOCAINE 5% TOPICAL PATCH TP SCH (20:18)
[2018-08-05] MEDS ORDERED: MELATONIN 5 MG TABLETS PO PRN (22:00)
[2018-08-05] MEDS: LIDOCAINE PATCH REMOVAL MC SCH (22:16)
[2018-08-05] MEDS: diazePAM 5 MG TABLET PO SCH (22:16)
[2018-08-05] MEDS: THIAMINE HCL 100 MG TABLET (FP) PO SCH (22:17)
[2018-08-06] MEDS: diazePAM 5 MG TABLET PO SCH ×3 (06:17→22:29)
--- NOTE | 2018-08-06 09:46 | PN ---
[facility] CIWA - CIWA Score Nausea/Vomitin Muscle Tremors: 3 Anxiety: 3 Agitation: 2 Paroxysmal Sweats: 1-Minimal Palms Moist Orientation: 0-Oriented Tacttile Disturbances: 1-Very Mild Itch/Numbness Auditory Disturbances: 1-Very Mild Visual Disturbances: 0-None Headache: 2-Mild CIWA-Ar Total Score: 15 BHS COWS - Scale Resting Pulse: 0= [place] 80 or Below Sweatin= Chills/Flushing Restless Observation: 3= Extraneous Movement Pupil Size: 1= Pupils >than Normal Bone or Joint Aches: 2= Severe Diffuse Aches Runny Nose/ Eye Tearin= Runny Nose/Eyes GI Upset > 30mins: 2= Nausea/Diarrhea Tremor Observation of Outstretched Hands: 2= Slight Tremor Visible Yawning Observation: 1= 1-2x During Session Anxiety or Irritability: 2=Irritable/Anxious Goose Flesh Skin: 0=Smooth Skin COWS Score: 16 [facility] Progress Note (SOAP) Subjective: alert,irritable,anxious,interrupted sleep,pain the body and back,tremor Objective: 08/06/18 09:44 Vital Signs Temperature 98 F 08/06/18 09:35 Pulse Rate 63 08/06/18 09:35 Respiratory Rate 18 08/06/18 09:35 Blood Pressure 108/68 08/06/18 09:35 O2 Sat by Pulse Oximetry (%) 08/06/18 09:45 labs pending Assessment: 08/06/18 09:45 withdrawal symptom Plan: continue detox
[2018-08-06] MEDS ORDERED: METHADONE HCL 10 MG TABLET (FOR DETOX USE ONLY) PO SCH (10:00)
[2018-08-06] MEDS: PRENATAL VITAMINS W/ FOLIC ACID TABLET (FP) PO SCH (10:09)
[2018-08-06] MEDS: diazePAM 5 MG TABLET PO PRN (10:09)
[2018-08-06] MEDS: LIDOCAINE 5% TOPICAL PATCH TP SCH (10:11)
[2018-08-06] MEDS: NICOTINE 14 MG/24 HOURS TOPICAL PATCH TD SCH (10:11)
[2018-08-06] MEDS: cloNIDine HCL 0.1 MG TABLET PO SCH ×2 (10:23→22:29)
[2018-08-06] MEDS: CYCLOBENZAPRINE HCL 10 MG TABLET (FP) PO PRN (10:23)
[2018-08-06 11:25] LABS: ALBUMIN 3.2 g/dl (3.4-5.0); ALK PHOS 59 U/L (45-117); ANION GAP 5 MMOL/L (8-16); BILIRUBIN,TOTAL 0.4 mg/dL (0.2-1); BLOOD UREA NITROGEN 18 mg/dL (7-18); CALCIUM 8.7 mg/dL (8.5-10.1); CHLORIDE 106 mmol/L (98-107); CO2 29 mmol/L (21-32); CREATININE 0.7 mg/dL (0.55-1.3); GLUCOSE,RANDOM 80 mg/dL (74-106); POTASSIUM 4.2 mmol/L (3.5-5.1); SGOT/AST 9 U/L (15-37); SGPT/ALT 15 U/L (13-61); SODIUM 140 mmol/L (136-145); TOT PROT 5.6 g/dl (6.4-8.2)
[2018-08-06 11:36] LABS: HEMATOCRIT 39.4 % (35.4-49); HEMOGLOBIN 13.5 GM/dL (11.7-16.9); MCH 29.5 pg (25.7-33.7); MCHC 34.2 g/dl (32.0-35.9); MEAN CELL VOLUME 86.2 fl (80-96); MEAN PLT VOLUME 8.6 fl (7.5-11.1); PLATELET COUNT 163 K/MM3 (134-434); RBC 4.56 M/mm3 (4.00-5.60); RDW 15.6 % (11.9-15.9); WHITE BLOOD COUNT 6.6 K/mm3 (4.0-10.0)
--- NOTE | 2018-08-06 15:12 | CONSULT ---
[facility] Psychiatric Consult - Data Date of interview: 08/06/18 Admission source: [facility] Identifying data: This is one of multiple admissions to [facility] for this 37 y/ o male self-referred for detoxifocation (alcohol, heroin, benzodiazepine, cannabis). Examined at [address] [place] [address]. Patient is single without children, homeless, unemployed and supported by relatives/friends. Substance Abuse History: Confirmed by the patient in this interview. Details in current [facility] report as follows : Smoking history: Current every day smoker. Have you smoked in the past 12 months: Yes. Aproximately how many cigarettes per day: 20. Cigars Per Day: 0. Hx Chewing Tobacco Use: No. Initiated information on smoking cessation: No. - Substances Abused. Heroin. Route: Injection. Frequency: Daily. Amount used: 13-10 bags. Age of first use: 16. Date of Last Use: 08/05/18. Alcohol. Route: Oral. Frequency: Daily. Amount used: 2 beers/ 1/2 pint vodka. Age of first use: 7. Date of Last Use: 08/04/18. Marijuana/Hashish. Route: Smoking. Frequency: 1-2 times per week. Amount used: 2 joints. Age of first use: 10. Date of Last Use: . xanax or klonopin. Route: Oral. Frequency: Daily. Amount used: 4- 8mg. Age of first use: 13. Date of Last Use: 08/03/18 Medical History: Significant for hepatitis C, history of withdrawal-related seizures and bronchial asthma. Psychiatric History: First contact with Psychiatry occurred during childhood ( around age 6-7). Prompted by behavioral disturbances. Patient got diagnosed with ADHD. Treated with psychostimulants. Diagnosis was revised later to Bipolar Disorder. History of multiple psychiatric hospitalizations ([facility], [facility], [facility]). Patient is known for his chronic non-adherence to psychiatric aftercare (clinic visits + medications). Off medications for months. Mr Spears denies history of suicide attempts. Physical/Sexual Abuse/Trauma History: Patient denies. Additional Comment: Urine Drug Screen Results: THC-Marijuana, OPI-Opiates, BZO- Benzodiazepines, MTD-Methadone, FEN-Fentanyl. Noted. Mental Status Exam - Mental Status Exam Alert and Oriented to: Time, Place, Person Cognitive Function: Grossly Intact Patient Appearance: Unkempt, Disheveled Mood: Nervous, Withdrawn, Irritable Affect: Mood Congruent, Constricted Patient Behavior: Fatigued, Cooperative (supperficially cooperative) Speech Pattern: Clear Voice Loudness: Normal Thought Process: Intact, Goal Oriented Thought Disorder: Not Present Hallucinations: Denies Suicidal Ideation: Denies Homicidal Ideation: Denies Insight/Judgement: Poor Sleep: Poorly, Difficulty falling asleep Appetite: Good Muscle strength/Tone: Normal Gait/Station: Other (not observed. Supine for entire interview) Psychiatric Findings - Problem List ([place] 1, 2,3) (1) Alcohol dependence with uncomplicated withdrawal Current Visit: Yes Status: Acute (2) Opioid dependence with withdrawal Current Visit: Yes Status: Acute (3) Sedative, hypnotic or anxiolytic dependence with withdrawal, uncomplicated Current Visit: Yes Status: Acute (4) Cannabis dependence Current Visit: Yes Status: Chronic (5) Nicotine dependence Current Visit: Yes Status: Chronic Qualifiers: Nicotine product type: cigarettes Substance use status: in withdrawal Qualified Code(s): F17.213 - Nicotine dependence, cigarettes, with withdrawal (6) Substance induced mood disorder Current Visit: Yes Status: Chronic (7) ADHD (attention deficit hyperactivity disorder) Current Visit: No Status: Chronic Qualifiers: Attention deficit-hyperactivity disorder type: other Qualified Code(s): F90.8 - Attention-deficit hyperactivity disorder, other type Comment: As per self-report. Asymptomatic during this examination. (8) Insomnia Current Visit: Yes Status: Chronic (9) Non-compliance Current Visit: Yes Status: Chronic - Initial Treatment Plan Initial Treatment Plan: Psychoeducation. Sleep hygiene. Detoxification. Patient declines to resume mood stabilizers or any medication other than seroquel 50 mg po hs (patient's request). Side effects/benefits discussed with the patient. Consent (verbal) granted to MD. Clarke. Recent pharmacy claims are surveyed : noted refills for valproate, risperdal, gabapentin, seroquel in past three months.
[2018-08-06] MEDS: LIDOCAINE PATCH REMOVAL MC SCH (22:29)
[2018-08-06] MEDS: THIAMINE HCL 100 MG TABLET (FP) PO SCH (22:29)
[2018-08-07] MEDS ORDERED: METHADONE HCL 5 MG TABLET (FOR DETOX USE ONLY) PO SCH (10:00)
[2018-08-07] MEDS: CYCLOBENZAPRINE HCL 10 MG TABLET (FP) PO PRN (10:28)
[2018-08-07] MEDS: PRENATAL VITAMINS W/ FOLIC ACID TABLET (FP) PO SCH (10:28)
[2018-08-07] MEDS: cloNIDine HCL 0.1 MG TABLET PO SCH ×2 (10:28→22:38)
[2018-08-07] MEDS: NICOTINE 14 MG/24 HOURS TOPICAL PATCH TD SCH (10:29)
[2018-08-07] MEDS: diazePAM 5 MG TABLET PO SCH ×2 (10:29→22:36)
[2018-08-07] MEDS: LIDOCAINE 5% TOPICAL PATCH TP SCH (10:29)
--- NOTE | 2018-08-07 10:51 | PN ---
S CIWA - CIWA Score Nausea/Vomitin-No Nausea/No Vomiting Muscle Tremors: None Anxiety: 4-Mod. Anxious/Guarded Agitation: 4-Moderately Restless Paroxysmal Sweats: No Perspiration Orientation: 0-Oriented Tacttile Disturbances: 0-None Auditory Disturbances: 0-None Visual Disturbances: 0-None Headache: 2-Mild CIWA-Ar Total Score: 10 S COWS - Scale Resting Pulse: 1= [place] 81-100 Sweatin= No chills or Flushing Restless Observation: 1= Difficult to Sit Still Pupil Size: 2= Moderately Dilated Bone or Joint Aches: 2= Severe Diffuse Aches Runny Nose/ Eye Tearin= None GI Upset > 30mins: 0= None Tremor Observation of Outstretched Hands: 0= None Yawning Observation: 0= None Anxiety or Irritability: 2=Irritable/Anxious Goose Flesh Skin: 0=Smooth Skin COWS Score: 8 S Progress Note (SOAP) Subjective: PATIENT C/O ANXIETY, HEADACHE, RESTLESSNESS, INSOMNIA AND BODY ACHES. Objective: 08/07/18 10:49 Laboratory Tests 08/06/18 08/06/18 08/06/18 07:45 07:45 07:45 WBC 6.6 RBC 4.56 Hgb 13.5 Hct 39.4 MCV 86.2 MCH 29.5 MCHC 34.2 RDW 15.6 Plt Count 163 D MPV 8.6 Sodium 140 Potassium 4.2 Chloride 106 Carbon Dioxide 29 Anion Gap 5 L BUN 18 Creatinine 0.7 Creat Clearance w eGFR > 60 Random Glucose 80 Calcium 8.7 Total Bilirubin 0.4 AST 9 L ALT 15 Alkaline Phosphatase 59 Total Protein 5.6 L Albumin 3.2 L RPR Titer Nonreactive Vital Signs Temperature 98.1 F 08/07/18 09:27 Pulse Rate 79 08/07/18 09:27 Respiratory Rate 18 08/07/18 09:27 Blood Pressure 110/68 08/07/18 09:27 O2 Sat by Pulse Oximetry (%) PE: ALERT AND ORIENTED X 3 SKIN WARM AND DRY + PERRLA, PUPIL MODERATELY DILATED EXT FULL ROM, AMB AD LISA\ ANXIOUS AND RESTLESS PACING IN HALLWAY Assessment: 08/07/18 10:50 A/P WITHDRAWAL SX ANXIETY Plan: CONTINUE DETOX RECONSULT PSYCH PATIENT STATES HE DOES TAKE ANTI-ANXIETY MEDICATION AND WOULD LIKE TO RESUME MEDS ENCOURAGE ORAL FLUIDS CONTINUE TO MONITOR
[2018-08-07] MEDS: diazePAM 5 MG TABLET PO PRN (12:15)
--- NOTE | 2018-08-07 12:44 | PN ---
Psychiatric Progress Note Vital Signs: Vital Signs Period Temp Pulse Resp BP Sys/Nolan Pulse Ox Last 24 Hr 97.7 F-98.1 F 36-79 - 90-120/51-68 Date of Session: 08/07/18 Chief Complaint:: " I need my medications. HPI: Patient admitted to for alcohol, heroin, benzodiazepine, and cannabis dependence. ROS: Significant for hepatitis C, history of withdrawal-related seizures and bronchial asthma. Current Medications: Active Medications Generic Name Dose Route Start Last Admin Trade Name Freq PRN Reason Stop Dose Admin Acetaminophen 650 mg 08/05/18 17:30 Tylenol - PO Q4H PRN FEVER Al Hydroxide/Mg Hydroxide 30 ml 08/05/18 17:30 Mylanta Oral Suspension - PO Q6H PRN DYSPEPSIA Clonidine 0.1 mg 08/06/18 10:00 08/07/18 10:28 Catapres - PO 0.1 mg BID JESSICA Administration Cyclobenzaprine HCl 10 mg 08/06/18 09:46 08/07/18 10:28 Flexeril - PO 10 mg TID PRN Administration MUSCLE SPASMS Diazepam 5 mg 08/07/18 10:00 08/07/18 10:29 Valium - PO 08/08/18 22:01 5 mg BID JESSICA Administration Diazepam 5 mg 08/09/18 10:00 Valium - PO 08/09/18 10:01 DAILY JESSICA Diazepam 10 mg 08/05/18 17:30 08/07/18 12:15 Valium - PO 08/08/18 17:30 10 mg Q4H PRN Administration WITHDRAWAL(CONT SUBST) Eucalyptus/Menthol/Phenol/Sorbitol 1 each 08/05/18 17:30 Cepastat Lozenge - MM Q4H PRN SORE THROAT Ibuprofen 400 mg 08/05/18 17:30 08/07/18 10:28 Motrin - PO 400 mg Q6H PRN Administration PAIN LEVEL 4-6 Lidocaine 1 patch 08/05/18 17:45 08/07/18 10:29 Lidoderm Patch - TP 1 patch DAILY JESSICA Administration Magnesium Citrate 300 ml 08/05/18 17:30 Citroma - PO Q48H PRN CONSTIPATION Magnesium Hydroxide 30 ml 08/05/18 17:30 Milk Of Magnesia - PO DAILY PRN CONSTIPATION Melatonin 5 mg 08/05/18 22:00 Melatonin PO HS PRN INSOMNIA Methadone HCl 10 mg 08/08/18 10:00 Dolophine - PO 08/08/18 10:01 DAILY JESSICA Methadone HCl 5 mg 08/09/18 06:00 Dolophine - PO 08/09/18 06:01 DAILY@0600 JESSICA Miscellaneous 1 each 08/05/18 22:00 08/06/18 22:29 Lidoderm Patch Removal MC 1 each DAILY@2200 JESSICA Administration Nicotine 14 mg 08/06/18 10:00 08/07/18 10:29 Nicoderm Patch - TD 14 mg DAILY JESSICA Administration Nicotine Polacrilex 2 mg 08/05/18 17:30 Nicorette Gum - BC Q2H PRN NICOTINE REPLACEMENT RX Multivit/Folic Acid/Iron 1 tab 08/06/18 10:00 08/07/18 10:28 Vitamins ([facility]) - PO 1 tab DAILY JESSICA Administration Thiamine HCl 100 mg 08/05/18 22:00 08/06/18 22:29 Vitamin B1 - PO 100 mg HS JESSICA Administration Medication(s) Change(s): yes. Will add Seroquel 100mg + Gabapentin 600mg TID. Current Side Effect: No Lab tests ordered: No Lab tests reviewed: Yes Provider note:: Patient requesting to restart psychotropic medications. Dr. Marsh note and read and appreciated. Patient was most recently hospitalized at [facility] in May of 2018 for depression and anixety. He was discharged after New Years with a prescription of seroquel 100mg + gabapentin 800mg TID + Mirtzapine 15mg + Risperdal 3mg. He was than seen by Dr. Portillo in detox on July 07, 2017 and was prescriebd seroquel 200mg BID + Risperdal 3mg BID + rememron 15mg HS + Gabapentin 800mg TID. Control Panel Operator is unsure as to why patient's medications were increased as he was not taking those doses before. Patient reports last taking psychotrophic medications 2 weeks ago. Mr. Spears is agreeable to restarting seroquel 100mg and gabapentin 600mg TID. Patient is not interested in restarting risperdal and at this time there is no clinical indication to restart an additional antipsychotic with seroquel. At present, patient reports depressed mood, anxiety, and difficulty sleeping. Total face to face time:: 25 Mental Status Exam - Mental Status Exam Alert and Oriented to: Time, Place, Person Cognitive Function: Good Patient Appearance: Well Groomed Mood: Sad, Anxious Affect: Mood Congruent Patient Behavior: Cooperative Speech Pattern: Appropriate Voice Loudness: Normal Thought Process: Intact, Goal Oriented Thought Disorder: Not Present Hallucinations: Denies Suicidal Ideation: Denies Homicidal Ideation: Denies Insight/Judgement: Poor Sleep: Poorly Appetite: Fair Muscle strength/Tone: Normal Gait/Station: Normal Psychiatric Treatment Plan - Problem List (1) Alcohol dependence with uncomplicated withdrawal Current Visit: Yes (2) Opioid dependence with withdrawal Current Visit: Yes (3) Sedative, hypnotic or anxiolytic dependence with withdrawal, uncomplicated Current Visit: Yes (4) Cannabis dependence Current Visit: Yes (5) Nicotine dependence Current Visit: Yes Qualifiers: Nicotine product type: cigarettes Substance use status: in withdrawal Qualified Code(s): F17.213 - Nicotine dependence, cigarettes, with withdrawal (6) Substance induced mood disorder Current Visit: Yes (7) Substance-induced sleep disorder Current Visit: Yes (8) ADHD (attention deficit hyperactivity disorder) Current Visit: No Qualifiers: Attention deficit-hyperactivity disorder type: other Qualified Code(s): F90.8 - Attention-deficit hyperactivity disorder, other type Comment: As per self-report. Asymptomatic during this examination.
[2018-08-07] MEDS: GABAPENTIN 300 MG CAPSULE (FP) PO SCH ×2 (14:25→22:36)
[2018-08-07] MEDS: THIAMINE HCL 100 MG TABLET (FP) PO SCH (22:36)
[2018-08-07] MEDS: QUEtiapine FUMARATE 100 MG TABLET (FP) PO SCH (22:36)
[2018-08-07] MEDS: LIDOCAINE PATCH REMOVAL MC SCH (22:38)
[2018-08-08] MEDS: GABAPENTIN 300 MG CAPSULE (FP) PO SCH ×3 (06:23→22:24)
[2018-08-08] MEDS ORDERED: METHADONE HCL 10 MG TABLET (FOR DETOX USE ONLY) PO SCH (10:00)
[2018-08-08] MEDS: cloNIDine HCL 0.1 MG TABLET PO SCH ×2 (10:36→22:25)
[2018-08-08] MEDS: PRENATAL VITAMINS W/ FOLIC ACID TABLET (FP) PO SCH (10:36)
[2018-08-08] MEDS: LIDOCAINE 5% TOPICAL PATCH TP SCH (10:37)
[2018-08-08] MEDS: diazePAM 5 MG TABLET PO SCH ×2 (10:37→22:23)
[2018-08-08] MEDS: NICOTINE 14 MG/24 HOURS TOPICAL PATCH TD SCH (10:37)
--- NOTE | 2018-08-08 13:00 | PN ---
[facility] Progress Note (SOAP) Subjective: Interrupted Sleep, H/A, Sweating, Chills, Body Aches. Objective: PATIENT A & O X 3, OBSERVED AMBULATING ON UNIT. IN NO ACUTE DISTRESS. 08/08/18 12:58 Vital Signs Temperature 97.7 F 08/08/18 09:39 Pulse Rate 64 08/08/18 09:39 Respiratory Rate 18 08/08/18 09:39 Blood Pressure 116/61 08/08/18 09:39 O2 Sat by Pulse Oximetry (%) Laboratory Tests 08/06/18 08/06/18 08/06/18 07:45 07:45 07:45 WBC 6.6 RBC 4.56 Hgb 13.5 Hct 39.4 MCV 86.2 MCH 29.5 MCHC 34.2 RDW 15.6 Plt Count 163 D MPV 8.6 Sodium 140 Potassium 4.2 Chloride 106 Carbon Dioxide 29 Anion Gap 5 L BUN 18 Creatinine 0.7 Creat Clearance w eGFR > 60 Random Glucose 80 Calcium 8.7 Total Bilirubin 0.4 AST 9 L ALT 15 Alkaline Phosphatase 59 Total Protein 5.6 L Albumin 3.2 L RPR Titer Nonreactive HIV 1&2 Antibody Screen HIV P24 Antigen 08/07/18 06:00 WBC RBC Hgb Hct MCV MCH MCHC RDW Plt Count MPV Sodium Potassium Chloride Carbon Dioxide Anion Gap BUN Creatinine Creat Clearance w eGFR Random Glucose Calcium Total Bilirubin AST ALT Alkaline Phosphatase Total Protein Albumin RPR Titer HIV 1&2 Antibody Screen Negative HIV P24 Antigen Negative LABS NOTED. Assessment: 08/08/18 12:58 WITHDRAWAL SYMPTOMS. Plan: CONTINUE DETOX. INCREASE DAILY PO FLUID INTAKE. PRN FLEXERIL PO FOR BODY ACHES. PATIENT SCHEDULED FOR D/C TOMORROW.
[2018-08-08] MEDS: QUEtiapine FUMARATE 100 MG TABLET (FP) PO SCH (22:23)
[2018-08-08] MEDS: CYCLOBENZAPRINE HCL 10 MG TABLET (FP) PO PRN (22:24)
[2018-08-08] MEDS: LIDOCAINE PATCH REMOVAL MC SCH (22:24)
[2018-08-08] MEDS: THIAMINE HCL 100 MG TABLET (FP) PO SCH (22:24)
[2018-08-09] MEDS: GABAPENTIN 300 MG CAPSULE (FP) PO SCH (05:21)
[2018-08-09] MEDS ORDERED: METHADONE HCL 5 MG TABLET (FOR DETOX USE ONLY) PO SCH (06:00)
[2018-08-09 06:11] VITALS: BP 117/74; PULSE 48; TEMP 96.8
[2018-08-09] MEDS ORDERED: diazePAM 5 MG TABLET PO SCH (10:00)
--- NOTE | 2018-08-09 16:05 | DS ---
[facility] Detox Discharge Summary Admission Date: 08/05/18 Discharge Date: 08/09/18 - History Present History: Alcohol Dependence, Cannabis Dependence, Cocaine Dependence, Opioid Dependence, Sedative Dependence Additional Comments: PATIENT GONIG TO ATTEND '[facility] ([place], [place]) FOR AFTERCARE. PATIENT ADVISED TO FOLLOW-UP WITH MEDICAL PROVIDER DR. Kasi BILLINGSLEY ([place], [place]) WHEN POSSIBLE AFTER DISCHARGE FROM DETOX UNIT FOR GENERAL MEDICAL ASSESSMENT AND FOR HISTORY OF SEIZURES (PATIENT UNCERTAIN IF SEIZURES ARE DUE ONLY TO WITHDRAWAL OR DUE TO SEIZURE DISORDER OR DUE TO BOTH). PATIENT VERBALIZED UNDERSTANDING OF RECOMMENDATION. PATIENT WAS DISCHARGED FROM DETOX UNIT IN STABLE MEDICAL CONDITION. Pertinent Past History: History of Seizures, History of Depression, History of Bipolar Disorder, Weight Loss, Hep C (Treated), Nicotine Dependence, History of A.D.H.D. - Physical Exam Results Vital Signs: Vital Signs Temperature 96.8 F L 08/09/18 06:00 Pulse Rate 48 L 08/09/18 06:00 Respiratory Rate 18 08/09/18 06:00 Blood Pressure 117/74 08/09/18 06:00 O2 Sat by Pulse Oximetry (%) Pertinent Admission Physical Exam Findings: WITHDRAWAL SYMPTOMS. Laboratory Tests 08/06/18 08/06/18 08/06/18 07:45 07:45 07:45 WBC 6.6 RBC 4.56 Hgb 13.5 Hct 39.4 MCV 86.2 MCH 29.5 MCHC 34.2 RDW 15.6 Plt Count 163 D MPV 8.6 Sodium 140 Potassium 4.2 Chloride 106 Carbon Dioxide 29 Anion Gap 5 L BUN 18 Creatinine 0.7 Creat Clearance w eGFR > 60 Random Glucose 80 Calcium 8.7 Total Bilirubin 0.4 AST 9 L ALT 15 Alkaline Phosphatase 59 Total Protein 5.6 L Albumin 3.2 L RPR Titer Nonreactive HIV 1&2 Antibody Screen HIV P24 Antigen 08/07/18 06:00 WBC RBC Hgb Hct MCV MCH MCHC RDW Plt Count MPV Sodium Potassium Chloride Carbon Dioxide Anion Gap BUN Creatinine Creat Clearance w eGFR Random Glucose Calcium Total Bilirubin AST ALT Alkaline Phosphatase Total Protein Albumin RPR Titer HIV 1&2 Antibody Screen Negative HIV P24 Antigen Negative LABS NOTED. - Treatment Hospital Course: Detox Protocol Followed, Detoxed Safely, Responded well, Discharged Condition Good Patient has Accepted a Rehab Referral to: PATIENT GOING TO [facility] ([place], [place]). - Medication Discharge Medications: Ambulatory Orders Gabapentin [Neurontin -] 800 mg PO Q8H #90 capsule 07/07/18 Mirtazapine [Remeron -] 15 mg PO HS #30 tablet 07/07/18 Quetiapine Fumarate [Seroquel -] 200 mg PO BID #60 tablet 07/07/18 Risperidone [Risperdal -] 3 mg PO BID 07/07/18 Gabapentin 600 mg PO TID #42 tablet 08/09/18 Quetiapine Fumarate [Seroquel] 100 mg PO HS #14 tablet 08/09/18 - Diagnosis (1) Alcohol dependence with uncomplicated withdrawal Status: Acute (2) Opioid dependence with withdrawal Status: Acute (3) Weight decreased Status: Acute (4) ADHD (attention deficit hyperactivity disorder) Status: Chronic Qualifiers: Attention deficit-hyperactivity disorder type: unspecified Qualified Code(s ): F90.9 - Attention-deficit hyperactivity disorder, unspecified type (5) Hepatitis C Status: Chronic Qualifiers: Viral hepatitis chronicity: chronic Hepatic coma status: without hepatic coma Qualified Code(s): B18.2 - Chronic viral hepatitis C (6) Insomnia Status: Chronic Qualifiers: Insomnia type: unspecified Qualified Code(s): G47.00 - Insomnia, unspecified (7) Nicotine dependence Status: Chronic Qualifiers: Nicotine product type: cigarettes Substance use status: in withdrawal Qualified Code(s): F17.213 - Nicotine dependence, cigarettes, with withdrawal (8) Sedative, hypnotic or anxiolytic dependence with withdrawal, uncomplicated Status: Acute (9) Cannabis dependence Status: Chronic (10) Cocaine dependence Status: Chronic Qualifiers: Substance use status: uncomplicated Qualified Code(s): F14.20 - Cocaine dependence, uncomplicated (11) Non-compliance Status: Chronic (12) Substance induced mood disorder Status: Chronic - AMA Did Patient Leave Against Medical Advice: No
== END 2018-08-09 09:10 | disposition home or self-care (01) | DRG 773 ==
LOC: YASAS 12:46 → Y6N 17:49
PROVIDERS: ADMIT Surgery; ATTEND Surgery
PROC: HZ2ZZZZ Detoxification Services for Substance Abuse Treatment (ICD-10-PCS; principal; 2018-08-05)
DX: F11.23 Opioid dependence with withdrawal (principal); F10.230 Alcohol dependence with withdrawal, uncomplicated; F13.230 Sedative, hypnotic or anxiolytic dependence with withdrawal, uncomplicated; F14.20 Cocaine dependence, uncomplicated; F12.20 Cannabis dependence, uncomplicated; F17.213 Nicotine dependence, cigarettes, with withdrawal; F19.24 Other psychoactive substance dependence with psychoactive substance-induced mood disorder; F90.9 Attention-deficit hyperactivity disorder, unspecified type; G47.00 Insomnia, unspecified; B18.2 Chronic viral hepatitis C; R63.4 Abnormal weight loss; Z68.22 Body mass index [BMI] 22.0-22.9, adult; Z86.69 Personal history of other diseases of the nervous system and sense organs; Z91.5 Personal history of self-harm; Z91.19 Patient's noncompliance with other medical treatment and regimen
CPT/HCPCS: 36415; 80053; 85027; 86593; 87389; J0735

== ENCOUNTER 2018-09-19 12:16 | Inpatient (IN) | payer OTHER ==
--- NOTE | 2018-09-19 13:42 | HP ---
COWS - Scale Resting Pulse: 0= [place] 80 or Below Sweatin= Chills/Flushing Restless Observation: 3= Extraneous Movement Pupil Size: 1= Pupils >than Normal Bone or Joint Aches: 2= Severe Diffuse Aches Runny Nose/ Eye Tearin= Runny Nose/Eyes GI Upset > 30mins: 2= Nausea/Diarrhea Tremor Observation: 2= Slight Tremor Visible Yawning Observation: 2= >3x During Session Anxiety or Irritability: 2=Irritable/Anxious Goose Flesh Skin: 0=Smooth Skin COWS Score: 17 CIWA Score Nausea/Vomitin Muscle Tremors: 2 Anxiety: 2 Agitation: 2 Paroxysmal Sweats: 1-Minimal Palms Moist Orientation: 0-Oriented Tacttile Disturbances: 1-Very Mild Itch/Numbness Auditory Disturbances: 1-Very Mild Visual Disturbances: 0-None Headache: 2-Mild CIWA-Ar Total Score: 13 - Admission Criteria OASAS Guidelines: Admission for Medically Managed Detox: Requires at least one of the followin. CIWA greater than 12 2. Seizures within the past 24 hours 3. Delirium tremens within the past 24 hours 4. Hallucinations within the past 24 hours 5. Acute intervention needed for co occurring medical disorder 6. Acute intervention needed for co occurring psychiatric disorder 7. Severe withdrawal that cannot be handled at a lower level of care (continued vomiting, continued diarrhea, abnormal vital signs) requiring intravenous medication and/or fluids 8. Admission ROS S - [facility] Chief Complaint: i need help to stop using heroin,alcohol and benzodiazepam Allergies/Adverse Reactions: Allergies Allergy/AdvReac Type Severity Reaction Status Date / Time venom-honey bee Allergy Severe Swelling Verified 09/19/18 13:11 [bee venom (honey bee)] Fish Containing Products Allergy Mild Difficulty Verified 09/19/18 13:11 Breathing No Known Drug Allergies Allergy Verified 09/19/18 13:11 bee stings Allergy Severe Swelling Uncoded 09/19/18 13:11 History of Present Illness: this 37 years old male with heroin,alchol,klonopin dependence,seeking detox, withdrawal symptom, multiple admissions in detox,keep relapsing last detox 08/05/18 to 08/09/18 [facility] hepatitis c treated nicotine dependence 1 pack,needed patch and gum weight loss bipolar disorder,ptsd,adhd longest period of sobrety 7 years plan for rahab last seizure 14 years Exam Limitations: No Limitations - Ebola screening Have you traveled outside of the country in the last 21 days: No Have you had contact with anyone from an Ebola affected area: No Do you have a fever: No - Review of Systems Constitutional: Chills, Loss of Appetite, Malaise, Night Sweats, Changes in sleep, Weakness, Unintentional Wgt. Loss EENT: reports: Tearing, Nose Congestion Respiratory: reports: No Symptoms reported Cardiac: reports: No Symptoms Reported GI: reports: Diarrhea, Nausea, Abdominal cramping : reports: No Symptoms Reported Musculoskeletal: reports: Back Pain, Joint Pain, Muscle Pain Integumentary: reports: Dryness Neuro: reports: Headache, Tremors Endocrine: reports: No Symptoms Reported Hematology: reports: No Symptoms Reported Psychiatric: reports: No Sypmtoms Reported, Judgement Intact, Mood/Affect Appropiate, Orientated x3, other (bipolar disorder,adhd,depression) Other Systems: Reviewed and Negative Patient History - Patient Medical History Hx Anemia: No Hx Asthma: No Hx Chronic Obstructive Pulmonary Disease (COPD): No Hx Cancer: No Hx Cardiac Disorders: No Hx Congestive Heart Failure: No Hx Hypertension: No Hx Hypercholesterolemia: No Hx Pacemaker: No HX Cerebrovascular Accident: No Hx Seizures: Yes (etoh and drug related in the past last 14 years) Hx Dementia: No Hx Diabetes: No Hx Gastrointestinal Disorders: No Hx Liver Disease: Yes (Hep C and treated ) Hx Genitourinary Disorders: No Hx Sexually Transmitted Disorders: No Hx Renal Disease (ESRD): No Hx Thyroid Disease: No Hx Human Immunodeficiency Virus (HIV): No (negative last 08/09 negative) Hx Hepatitis C: Yes (treated - undetectable vl) Hx Depression: Yes Hx Suicide Attempt: No Hx Bipolar Disorder: Yes (reports no psych tx in years/ adhd) Hx Schizophrenia: No Other Medical History: no suicidal,no homicidal,low back pain herniated disc - Patient Surgical History Past Surgical History: No Hx Neurologic Surgery: No Hx Cataract Extraction: No Hx Cardiac Surgery: No Hx Lung Surgery: No Hx Breast Surgery: No Hx Breast Biopsy: No Hx Abdominal Surgery: No Hx Appendectomy: No Hx Cholecystectomy: No Hx Genitourinary Surgery: No Hx Section: No Hx Orthopedic Surgery: No Other Surgical History: Sx for abscess Drainage + TISSUE REMOVAL R hand in 04/04 , Tonsillectomy 7y Anesthesia Reaction: No - PPD History Previous Implant?: Yes Documented Results: Negative w/proof Implanted On Prior [facility] Admission?: Yes Date: 07/09/18 Results: 0 mm PPD to be Administered?: No - Smoking Cessation Smoking history: Current every day smoker Have you smoked in the past 12 months: Yes Aproximately how many cigarettes per day: 20 Cigars Per Day: 0 Hx Chewing Tobacco Use: No Initiated information on smoking cessation: Yes 'Breaking Loose' booklet given: 09/19/18 - Substance & Tx. History Hx Alcohol Use: Yes Hx Substance Use: Yes Substance Use Type: Alcohol, Heroin, Tranquilizers Hx Substance Use Treatment: Yes ([facility] 08/05/18 to 08/09/18) - Substances abused Heroin Substance route: Injection Frequency: Daily Amount used: 15 bags Age of first use: 16 Date of last use: 09/18/18 Cocaine Substance route: Injection Frequency: Daily Amount used: 40$ Age of first use: 13 Date of last use: 09/17/18 Benzodiazepine (Klonopin) Substance route: Oral Frequency: Daily Amount used: 5 mgs Age of first use: 13 Date of last use: 09/16/18 Family Disease History - Family Disease History Family Disease History: Heart Disease: Mother (hx CVA - alive), Other: Mother Admission Physical Exam [facility] - Vital Signs Vital Signs: Vital Signs - 24 hr 09/19/18 13:30 Temperature 98.1 F Pulse Rate 69 Respiratory 18 Rate Blood Pressure 126/71 - Physical General Appearance: Yes: Moderate Distress, Tremorous, Irritable, Sweating, Anxious HEENTM: Yes: Normal ENT Inspection, Normocephalic, [place], Pharynx Normal Respiratory: Yes: Lungs Clear, Normal Breath Sounds, No Respiratory Distress Neck: Yes: Within Normal Limits, Supple, Trachea in good position Breast: Yes: Within Normal Limits Cardiology: Yes: Within Normal Limits, Regular Rhythm, Regular Rate, S1, S2 Abdominal: Yes: Within Normal Limits, Normal Bowel Sounds, Non Tender, Flat, Soft Genitourinary: Yes: Within Normal Limits Back: Yes: Muscle Spasm Musculoskeletal: Yes: Within Normal Limits, Back pain, Muscle Pain Extremities: Yes: Tremors 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: Yes: transfer controller II-XII NML intact, Alert, Motor Strength 5/5, Normal Mood /Affect Integumentary: Yes: Dry, Track Swenson Lymphatic: Yes: Within Normal Limits - Diagnostic (1) Opioid dependence with withdrawal Status: Acute (2) Alcohol dependence with uncomplicated withdrawal Status: Acute (3) Sedative, hypnotic or anxiolytic dependence with withdrawal, uncomplicated Status: Acute (4) Weight decreased Status: Acute (5) ADHD (attention deficit hyperactivity disorder) Status: Chronic Qualifiers: Attention deficit-hyperactivity disorder type: unspecified Qualified Code(s ): F90.9 - Attention-deficit hyperactivity disorder, unspecified type Comment: As per self-report. Asymptomatic during this examination. (6) Hepatitis C Status: Chronic Qualifiers: Viral hepatitis chronicity: chronic Hepatic coma status: without hepatic coma Qualified Code(s): B18.2 - Chronic viral hepatitis C Comment: completed treatment (7) Nicotine dependence Status: Chronic Qualifiers: Nicotine product type: cigarettes Substance use status: in withdrawal Qualified Code(s): F17.213 - Nicotine dependence, cigarettes, with withdrawal Cleared for Admission S - Detox or Rehab [facility] Level of Care: Medically Managed Detox Regimen/Protocol: Methadone/Valium Breathalyzer - Breathalyzer Breathalyzer: 0 Urine Drug Screen - Test Device Lot number: [id number] Expiration date: 05/20/20 - Control Is test valid?: Yes - Results Drug screen NEGATIVE: No Urine drug screen results: FEN-Fentanyl, MOP-Opiates, OXY-Oxycodone, BZO- Benzodiazepines Inpatient Rehab Admission - Rehab Decision to Admit Inpatient rehab admission?: No
[2018-09-19] MEDS ORDERED: ACETAMINOPHEN 325 MG TABLET (FP) PO PRN ×2 (13:52)
[2018-09-19] MEDS ORDERED: MELATONIN 5 MG TABLETS PO PRN (13:52)
[2018-09-19] MEDS ORDERED: IBUPROFEN 400 MG TABLET (FP) PO PRN (13:52)
[2018-09-19] MEDS ORDERED: MAG HYDROX/AL HYDROX/SIMETH 30 ML UNIT-DOSE CUP PO PRN (13:52)
[2018-09-19] MEDS ORDERED: MAGNESIUM HYDROX 2400MG/30ML ORAL SUSPENSION 30 ML CUP PO PRN (13:52)
[2018-09-19] MEDS ORDERED: METHOCARBAMOL 500 MG TABLET PO PRN (13:52)
[2018-09-19] MEDS ORDERED: NICOTINE POLACRILEX 2 MG GUM BUC PRN (13:52)
[2018-09-19] MEDS ORDERED: hydrOXYzine PAMOATE 25 MG CAPSULE (FP) PO PRN (13:52)
[2018-09-19] MEDS ORDERED: cloNIDine HCL 0.1 MG TABLET PO PRN (13:52)
[2018-09-19] MEDS ORDERED: MAGNESIUM CITRATE 300 ML BOTTLE PO PRN (13:52)
[2018-09-19] MEDS ORDERED: MENTHOL/PHENOL 1 EACH UD MM PRN (13:52)
[2018-09-19] MEDS ORDERED: BISMUTH SUBSALICYLATE 262 MG/15 ML BTL PO PRN (13:52)
[2018-09-19] MEDS ORDERED: METHADONE HCL 10 MG TABLET (FOR DETOX USE ONLY) PO ONE ×2 (15:00→23:00)
[2018-09-19] MEDS: NICOTINE 21 MG/24 HOURS TOPICAL PATCH TD SCH (15:13)
[2018-09-19] MEDS: diazePAM 5 MG TABLET PO PRN (15:13)
[2018-09-19 18:45] LABS: EPI CELLS 10.2 /HPF (0-5); PH,URINE 5.5 (5.0-8.0); URINE APPEARANCE TURBID; URINE BACTERIA 5.2 /hpf (NEGATIVE); URINE BILIRUBIN NEGATIVE (NEGATIVE); URINE CASTS 112 /hpf (0-8); URINE COLOR DK YELLOW; URINE GLUCOSE (UA) NEGATIVE (NEGATIVE); URINE KETONE TRACE (NEGATIVE); URINE LEUK ESTERASE NEGATIVE (NEGATIVE); URINE NITRITE NEGATIVE (NEGATIVE); URINE PROTEIN 2+ (NEGATIVE); URINE RBC 1 /hpf (0-4); URINE WBC 4 /hpf (0-5)
[2018-09-19 19:39] LABS: URINE CRYSTALS AMORPHOUS URATE /hpf
[2018-09-19] MEDS ORDERED: THIAMINE HCL 100 MG TABLET (FP) PO SCH (22:00)
[2018-09-19] MEDS: diazePAM 5 MG TABLET PO SCH (22:31)
[2018-09-20] MEDS: diazePAM 5 MG TABLET PO SCH (06:01)
[2018-09-20 09:05] VITALS: BP 106/69; PULSE 61; TEMP 98.1
[2018-09-20] MEDS ORDERED: METHADONE HCL 10 MG TABLET (FOR DETOX USE ONLY) PO ONE (10:00)
[2018-09-20] MEDS ORDERED: PRENATAL VITAMINS W/ FOLIC ACID TABLET (FP) PO SCH (10:00)
[2018-09-20] MEDS: diazePAM 5 MG TABLET PO PRN (10:02)
[2018-09-20 10:03] LABS: HEMATOCRIT 41.3 % (35.4-49); MCH 29.5 pg (25.7-33.7); MCHC 33.8 g/dl (32.0-35.9); MEAN CELL VOLUME 87.2 fl (80-96); MEAN PLT VOLUME 9.5 fl (7.5-11.1); PLATELET COUNT 217 K/MM3 (134-434); RBC 4.74 M/mm3 (4.00-5.60); RDW 16.1 % (11.9-15.9); WHITE BLOOD COUNT 7.8 K/mm3 (4.0-10.0)
[2018-09-20] MEDS: NICOTINE 21 MG/24 HOURS TOPICAL PATCH TD SCH (10:04)
[2018-09-20 10:11] LABS: ALBUMIN 3.9 g/dl (3.4-5.0); ALK PHOS 64 U/L (45-117); ANION GAP 5 MMOL/L (8-16); BILIRUBIN,TOTAL 0.3 mg/dL (0.2-1); BLOOD UREA NITROGEN 14 mg/dL (7-18); CALCIUM 9.1 mg/dL (8.5-10.1); CHLORIDE 105 mmol/L (98-107); CO2 30 mmol/L (21-32); CREATININE 0.9 mg/dL (0.55-1.3); GLUCOSE,RANDOM 114 mg/dL (74-106); POTASSIUM 3.9 mmol/L (3.5-5.1); SGOT/AST 12 U/L (15-37); SGPT/ALT 17 U/L (13-61); SODIUM 140 mmol/L (136-145)
--- NOTE | 2018-09-20 14:09 | PN ---
S CIWA - CIWA Score Nausea/Vomitin-No Nausea/No Vomiting Muscle Tremors: None Anxiety: 4-Mod. Anxious/Guarded Agitation: 1-Slight > Activity Paroxysmal Sweats: 3 Orientation: 0-Oriented Tacttile Disturbances: 2-Mild Itch/Numbness/Burn Auditory Disturbances: 1-Very Mild Visual Disturbances: 2-Mild Sensitivity Headache: 0-None Present CIWA-Ar Total Score: 13 [facility] COWS - Scale Resting Pulse: 0= [place] 80 or Below Sweatin= Chills/Flushing Restless Observation: 1= Difficult to Sit Still Pupil Size: 0= Normal to Room Light Bone or Joint Aches: 2= Severe Diffuse Aches Runny Nose/ Eye Tearin= None GI Upset > 30mins: 0= None Tremor Observation of Outstretched Hands: 0= None Yawning Observation: 1= 1-2x During Session Anxiety or Irritability: 2=Irritable/Anxious Goose Flesh Skin: 3=Piloerection COWS Score: 10 S Progress Note (SOAP) Subjective: Hot Cold Sensations, Sweating, Body Aches, Anxious. Objective: PATIENT A & O X 3, OBSERVED AMBULATING ON UNIT. IN NO ACUTE DISTRESS. 09/20/18 14:08 Vital Signs Temperature 98.1 F 09/20/18 09:04 Pulse Rate 61 09/20/18 09:04 Respiratory Rate 18 09/20/18 09:04 Blood Pressure 106/69 09/20/18 09:04 O2 Sat by Pulse Oximetry (%) Laboratory Tests 09/19/18 09/20/18 09/20/18 15:00 05:50 05:50 WBC 7.8 RBC 4.74 Hgb 14.0 Hct 41.3 MCV 87.2 MCH 29.5 MCHC 33.8 RDW 16.1 H Plt Count 217 D MPV 9.5 D Sodium 140 Potassium 3.9 Chloride 105 Carbon Dioxide 30 Anion Gap 5 L BUN 14 Creatinine 0.9 Creat Clearance w eGFR 93.94 Random Glucose 114 H Calcium 9.1 Total Bilirubin 0.3 AST 12 L ALT 17 Alkaline Phosphatase 64 Total Protein 7.0 Albumin 3.9 Urine Color Dk yellow Urine Appearance Turbid Urine pH 5.5 Ur Specific [place] 1.031 Urine Protein 2+ H Urine Glucose (UA) Negative Urine Ketones Trace H Urine Blood Negative Urine Nitrite Negative Urine Bilirubin Negative Urine Urobilinogen 1.0 Ur Leukocyte Esterase Negative Urine WBC (Auto) 4 Urine RBC (Auto) 1 Urine Casts (Auto) 112 U Pathogenic Cast Auto None seen U Epithel Cells (Auto) 10.2 U Sm Round Cell (Auto) None seen Urine Crystals (Auto) Amorphous urate Urine Bacteria (Auto) 5.2 LABS NOTED. RPR RESULT PENDING. 09/20/18 14:09 Assessment: 09/20/18 14:08 WITHDRAWAL SYMPTOMS. Plan: CONTINUE DETOX.
--- NOTE | 2018-09-20 14:12 | DS ---
[facility] Detox Discharge Summary Admission Date: 09/19/18 Discharge Date: 09/20/18 - History Present History: Alcohol Dependence, Opioid Dependence, Sedative Dependence Additional Comments: DESPITE EFFORTS BY ASSEMBLING INSPECTOR AND BY NURSING STAFF TO ADDRESS PATIENT'S MEDICAL NEEDS / CONCERNS, PATIENT DOES NOT WISH TO REMAIN TO COMPLETE DETOX REGIMEN. RISKS OF LEAVING DETOX UNIT AGAINST MEDICAL ADVICE AND PRIOR TO COMPLETION OF DETOX REGIMEN EXPLAINED TO PATIENT. PATIENT ADVISED TO GO IMMEDIATELY TO NEAREST ER SHOULD ANY INTOLERABLE WITHDRAWAL / DETOX SYMPTOMS DEVELOP AT ANY TIME. PATIENT VERBALIZED UNDERSTANDING OF ALL INFORMATION / RECOMMENDATIONS PRESENTED TO HIM PRIOR TO DEPARTURE FROM DETOX UNIT. PATIENT LEFT DETOX UNIT IN STABLE MEDICAL CONDITION. Pertinent Past History: Hep C (Treated), History of Seizures (Due to Drug / Alcohol Withdrawal), Nicotine Dependence, Weight Loss, A.D.H.D., Bipolar Disorder, P.T.S.D., Depression. - Physical Exam Results Vital Signs: Vital Signs Temperature 98.1 F 09/20/18 09:04 Pulse Rate 61 09/20/18 09:04 Respiratory Rate 18 09/20/18 09:04 Blood Pressure 106/69 09/20/18 09:04 O2 Sat by Pulse Oximetry (%) Pertinent Admission Physical Exam Findings: WITHDRAWAL SYMPTOMS. Laboratory Tests 09/19/18 09/20/18 09/20/18 15:00 05:50 05:50 WBC 7.8 RBC 4.74 Hgb 14.0 Hct 41.3 MCV 87.2 MCH 29.5 MCHC 33.8 RDW 16.1 H Plt Count 217 D MPV 9.5 D Sodium 140 Potassium 3.9 Chloride 105 Carbon Dioxide 30 Anion Gap 5 L BUN 14 Creatinine 0.9 Creat Clearance w eGFR 93.94 Random Glucose 114 H Calcium 9.1 Total Bilirubin 0.3 AST 12 L ALT 17 Alkaline Phosphatase 64 Total Protein 7.0 Albumin 3.9 Urine Color Dk yellow Urine Appearance Turbid Urine pH 5.5 Ur Specific [place] 1.031 Urine Protein 2+ H Urine Glucose (UA) Negative Urine Ketones Trace H Urine Blood Negative Urine Nitrite Negative Urine Bilirubin Negative Urine Urobilinogen 1.0 Ur Leukocyte Esterase Negative Urine WBC (Auto) 4 Urine RBC (Auto) 1 Urine Casts (Auto) 112 U Pathogenic Cast Auto None seen U Epithel Cells (Auto) 10.2 U Sm Round Cell (Auto) None seen Urine Crystals (Auto) Amorphous urate Urine Bacteria (Auto) 5.2 LABS NOTED. - Treatment Hospital Course: Detox Protocol Followed, Detoxed Safely - Medication Discharge Medications: Ambulatory Orders NK [No Known Home Medication] 09/19/18 - Diagnosis (1) Alcohol dependence with uncomplicated withdrawal Status: Acute (2) Opioid dependence with withdrawal Status: Acute (3) Sedative, hypnotic or anxiolytic dependence with withdrawal, uncomplicated Status: Acute (4) Weight decreased Status: Acute (5) ADHD (attention deficit hyperactivity disorder) Status: Chronic Qualifiers: Attention deficit-hyperactivity disorder type: unspecified Qualified Code(s ): F90.9 - Attention-deficit hyperactivity disorder, unspecified type (6) Hepatitis C Status: Chronic Qualifiers: Viral hepatitis chronicity: chronic Hepatic coma status: without hepatic coma Qualified Code(s): B18.2 - Chronic viral hepatitis C (7) Nicotine dependence Status: Chronic Qualifiers: Nicotine product type: cigarettes Substance use status: in withdrawal Qualified Code(s): F17.213 - Nicotine dependence, cigarettes, with withdrawal - AMA Did Patient Leave Against Medical Advice: Yes (PATIENT DID NOT WISH TO REMAIN TO COMPLETE DETOX REGIMEN.)
[2018-09-21] MEDS ORDERED: diazePAM 5 MG TABLET PO SCH (10:00)
[2018-09-21] MEDS ORDERED: METHADONE HCL 10 MG TABLET (FOR DETOX USE ONLY) PO ONE (10:00)
[2018-09-22] MEDS ORDERED: diazePAM 5 MG TABLET PO SCH (06:00)
[2018-09-22] MEDS ORDERED: METHADONE HCL 10 MG TABLET (FOR DETOX USE ONLY) PO ONE (10:00)
[2018-09-23] MEDS ORDERED: METHADONE HCL 5 MG TABLET (FOR DETOX USE ONLY) PO ONE (06:00)
== END 2018-09-20 11:14 | disposition left against medical advice (07) | DRG 770 ==
LOC: YASAS 12:16 → Y3N 14:22
PROVIDERS: ADMIT Surgery; ATTEND Surgery
PROC: HZ2ZZZZ Detoxification Services for Substance Abuse Treatment (ICD-10-PCS; principal; 2018-09-19)
DX: F11.23 Opioid dependence with withdrawal (principal); F10.230 Alcohol dependence with withdrawal, uncomplicated; F13.230 Sedative, hypnotic or anxiolytic dependence with withdrawal, uncomplicated; F14.20 Cocaine dependence, uncomplicated; F17.213 Nicotine dependence, cigarettes, with withdrawal; F31.9 Bipolar disorder, unspecified; F90.9 Attention-deficit hyperactivity disorder, unspecified type; F43.10 Post-traumatic stress disorder, unspecified; B18.2 Chronic viral hepatitis C; R63.4 Abnormal weight loss; Z68.23 Body mass index [BMI] 23.0-23.9, adult; Z86.69 Personal history of other diseases of the nervous system and sense organs
CPT/HCPCS: 36415; 80053; 81003; 85027; 86593

== ENCOUNTER 2018-12-23 14:16 | Inpatient (IN) | payer OTHER ==
[2018-12-23 15:26] VITALS: BMI 26.8
--- NOTE | 2018-12-23 16:56 | HP ---
COWS - Scale Resting Pulse: 0= NE 80 or Below Sweatin= Chills/Flushing Restless Observation: 1= Difficult to Sit Still Pupil Size: 0= Normal to Room Light Bone or Joint Aches: 2= Severe Diffuse Aches Runny Nose/ Eye Tearin= Nasal Congestion GI Upset > 30mins: 2= Nausea/Diarrhea Tremor Observation: 2= Slight Tremor Visible Yawning Observation: 1= 1-2x During Session Anxiety or Irritability: 2=Irritable/Anxious Goose Flesh Skin: 0=Smooth Skin COWS Score: 12 CIWA Score Nausea/Vomitin Muscle Tremors: 3 Anxiety: 3 Agitation: 2 Paroxysmal Sweats: 1-Minimal Palms Moist Orientation: 0-Oriented Tacttile Disturbances: 0-None Auditory Disturbances: 2-Mild Harshness/Frighten Visual Disturbances: 2-Mild Sensitivity Headache: 0-None Present CIWA-Ar Total Score: 15 - Admission Criteria [facility]ASAS Guidelines: Admission for Medically Managed Detox: Requires at least one of the followin. CIWA greater than 12 2. Seizures within the past 24 hours 3. Delirium tremens within the past 24 hours 4. Hallucinations within the past 24 hours 5. Acute intervention needed for co occurring medical disorder 6. Acute intervention needed for co occurring psychiatric disorder 7. Severe withdrawal that cannot be handled at a lower level of care (continued vomiting, continued diarrhea, abnormal vital signs) requiring intravenous medication and/or fluids 8. meets criteria Patient presents the following: CIWA greater than 12 Admission Criteria Met: Admission criteria met Admission ROS [facility] Chief Complaint: im trying to stop Allergies/Adverse Reactions: Allergies Allergy/AdvReac Type Severity Reaction Status Date / Time venom-honey bee Allergy Severe Swelling Verified 12/23/18 15:14 [bee venom (honey bee)] Fish Containing Products Allergy Mild Difficulty Verified 12/23/18 15:14 Breathing No Known Drug Allergies Allergy Verified 12/23/18 15:14 bee stings Allergy Severe Swelling Uncoded 12/23/18 15:14 History of Present Illness: hamida says he is at his worst in terms of use. relapsed in 2009, escalating pattern of use. treatment has included "all sorts" mmtp, no suboxone, inpatients outpt currently motivated to enter inpt rehab and desires vivitrol - Ebola screening Have you traveled outside of the country in the last 21 days: No Have you had contact with anyone from an Ebola affected area: No Do you have a fever: No - Review of Systems Constitutional: Changes in sleep, Unintentional Wgt. Loss EENT: reports: Nose Congestion Respiratory: reports: No Symptoms reported Cardiac: reports: No Symptoms Reported GI: reports: Diarrhea : reports: No Symptoms Reported Musculoskeletal: reports: Back Pain, Joint Pain Integumentary: reports: Other (tracts) Neuro: reports: No Symptoms reported Endocrine: reports: No Symptoms Reported Hematology: reports: No Symptoms Reported Psychiatric: reports: Anxious Patient History - Patient Medical History Hx Anemia: No Hx Asthma: No Hx Chronic Obstructive Pulmonary Disease (COPD): No Hx Cancer: No Hx Cardiac Disorders: No Hx Congestive Heart Failure: No Hx Hypertension: No Hx Hypercholesterolemia: No Hx Pacemaker: No HX Cerebrovascular Accident: No Hx Seizures: Yes (etoh and drug related in the past last 14 years) Hx Dementia: No Hx Diabetes: No Hx Gastrointestinal Disorders: No Hx Liver Disease: Yes (Hep C and treated ) Hx Genitourinary Disorders: No Hx Sexually Transmitted Disorders: No Hx Renal Disease (ESRD): No Hx Thyroid Disease: No Hx Human Immunodeficiency Virus (HIV): No (negative last 08/09 negative) Hx Hepatitis C: Yes (treated - undetectable vl) Hx Depression: Yes Hx Suicide Attempt: No Hx Bipolar Disorder: Yes (reports no psych tx in years/ adhd) Hx Schizophrenia: No - Patient Surgical History Past Surgical History: Yes Hx Neurologic Surgery: No Hx Cataract Extraction: No Hx Cardiac Surgery: No Hx Lung Surgery: No Hx Breast Surgery: No Hx Breast Biopsy: No Hx Abdominal Surgery: No Hx Appendectomy: No Hx Cholecystectomy: No Hx Genitourinary Surgery: No Hx Section: No Hx Orthopedic Surgery: No Other Surgical History: Sx for abscess Drainage + TISSUE REMOVAL R hand in 04/04 , Tonsillectomy 7y Anesthesia Reaction: No - PPD History Date: 07/09/18 Results: 0 mm - Smoking Cessation Smoking history: Current every day smoker Have you smoked in the past 12 months: Yes Aproximately how many cigarettes per day: 20 Cigars Per Day: 0 Hx Chewing Tobacco Use: No Initiated information on smoking cessation: Yes 'Breaking Loose' booklet given: 12/23/18 - Substances abused Heroin Substance route: Injection Frequency: Daily Amount used: 15-25BAGS Age of first use: 16 Date of last use: 12/23/18 Cocaine Substance route: Injection Frequency: Daily Amount used: 2-5BAGS Age of first use: 13 Date of last use: 12/21/18 Benzodiazepine (Klonopin) Substance route: Oral Frequency: 3-6 times per week Amount used: 4MG-7MG Age of first use: 12 Date of last use: 12/22/18 Alcohol Substance route: Oral Frequency: Daily Amount used: 8 BEERS, 1/2PINT Age of first use: 9 Date of last use: 12/22/18 PCP Substance route: Smoking Frequency: 1-2 times per week Amount used: 1 JOINT Age of first use: 16 Date of last use: 12/19/18 Family Disease History - Family Disease History Family Disease History: Heart Disease: Mother (hx CVA - alive), Other: Mother Admission Physical Exam S - Vital Signs Vital Signs: Vital Signs - 24 hr 12/23/18 12/23/18 15:12 16:13 Temperature 98.0 F 98.0 F Pulse Rate 77 77 Respiratory 17 17 Rate Blood Pressure 103/64 103/64 - Physical General Appearance: Yes: Disheveled HEENTM: Yes: Within Normal Limits, EOMI Respiratory: Yes: Within Normal Limits Neck: Yes: Within Normal Limits Breast: Yes: Breast Exam Deferred Cardiology: Yes: Within Normal Limits Abdominal: Yes: Increased Bowel Sounds Genitourinary: Yes: Within Normal Limits Back: Yes: Within Normal Limits Musculoskeletal: Yes: full range of Motion Extremities: Yes: Within Normal Limits 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: Yes: Within Normal Limits Integumentary: Yes: Other (tracts) Lymphatic: Yes: Within Normal Limits - Diagnostic (1) Alcohol dependence with uncomplicated withdrawal Current Visit: Yes Status: Acute (2) Opioid dependence with withdrawal Current Visit: Yes Status: Acute (3) Sedative, hypnotic or anxiolytic dependence with withdrawal, uncomplicated Current Visit: Yes Status: Acute (4) Depression Current Visit: No Status: Chronic (5) Insomnia Current Visit: No Status: Chronic Qualifiers: Insomnia type: unspecified Qualified Code(s): G47.00 - Insomnia, unspecified (6) Nicotine dependence Current Visit: No Status: Chronic Qualifiers: Nicotine product type: cigarettes Substance use status: in withdrawal Qualified Code(s): F17.213 - Nicotine dependence, cigarettes, with withdrawal Breathalyzer - Breathalyzer Breathalyzer: 0 Urine Drug Screen - Test Device Lot number: [id number] Expiration date: 08/18/20 - Control Is test valid?: Yes - Results Drug screen NEGATIVE: No Urine drug screen results: THC-Marijuana, FEN-Fentanyl, MOP-Opiates, OXY- Oxycodone, MTD-Methadone, BZO-Benzodiazepines Inpatient Rehab Admission - Rehab Decision to Admit Inpatient rehab admission?: No
[2018-12-23] MEDS ORDERED: MAG HYDROX/AL HYDROX/SIMETH 30 ML UNIT-DOSE CUP PO PRN (17:13)
[2018-12-23] MEDS ORDERED: BISMUTH SUBSALICYLATE 524 MG/30 ML UD PO PRN (17:13)
[2018-12-23] MEDS ORDERED: MAGNESIUM HYDROX 2400MG/30ML ORAL SUSPENSION 30 ML CUP PO PRN (17:13)
[2018-12-23] MEDS ORDERED: IBUPROFEN 400 MG TABLET (FP) PO PRN (17:13)
[2018-12-23] MEDS ORDERED: cloNIDine HCL 0.1 MG TABLET PO PRN (17:13)
[2018-12-23] MEDS ORDERED: METHOCARBAMOL 500 MG TABLET PO PRN (17:13)
[2018-12-23] MEDS ORDERED: diazePAM 5 MG TABLET PO PRN (17:13)
[2018-12-23] MEDS ORDERED: ACETAMINOPHEN 325 MG TABLET (FP) PO PRN ×2 (17:13)
[2018-12-23] MEDS ORDERED: hydrOXYzine PAMOATE 25 MG CAPSULE (FP) PO PRN (17:13)
[2018-12-23] MEDS ORDERED: MENTHOL/PHENOL 1 EACH UD MM PRN (17:13)
[2018-12-23] MEDS ORDERED: MAGNESIUM CITRATE 300 ML BOTTLE PO PRN (17:13)
[2018-12-23] MEDS ORDERED: MELATONIN 5 MG TABLETS PO PRN (17:13)
[2018-12-23] MEDS ORDERED: METHADONE HCL 10 MG TABLET (FOR DETOX USE ONLY) PO ONE (18:15)
[2018-12-23] MEDS ORDERED: THIAMINE HCL 100 MG TABLET (FP) PO SCH (22:00)
[2018-12-23] MEDS: diazePAM 5 MG TABLET PO SCH (22:06)
[2018-12-23] MEDS ORDERED: RANITIDINE HCL 150 MG TABLET (FP) PO SCH (23:45)
[2018-12-24] MEDS: diazePAM 5 MG TABLET PO SCH (05:48)
[2018-12-24 09:28] VITALS: BP 119/80; PULSE 60; TEMP 97
[2018-12-24] MEDS ORDERED: PRENATAL VITAMINS W/ FOLIC ACID TABLET (FP) PO SCH (10:00)
[2018-12-24] MEDS ORDERED: METHADONE HCL 5 MG TABLET (FOR DETOX USE ONLY) PO ONE (10:00)
--- NOTE | 2018-12-24 10:21 | CONSULT ---
[facility] Psychiatric Consult - Data Date of interview: 12/24/18 Admission source: [facility] Identifying data: Patient is approached for psychiatric interview. " I don't want to see psychiatrists. I am fine." Nursing staff is made aware.
[2018-12-24 11:15] LABS: HEMATOCRIT 36.6 % (35.4-49); HEMOGLOBIN 12.2 GM/dL (11.7-16.9); MCHC 33.4 g/dl (32.0-35.9); MEAN CELL VOLUME 87.1 fl (80-96); MEAN PLT VOLUME 8.1 fl (7.5-11.1); RDW 14.3 % (11.9-15.9); WHITE BLOOD COUNT 6.9 K/mm3 (4.0-10.0)
[2018-12-24 11:16] LABS: ALBUMIN 2.9 g/dl (3.4-5.0); BILIRUBIN,TOTAL 0.2 mg/dL (0.2-1); BLOOD UREA NITROGEN 16.4 mg/dL (7-18); CALCIUM 8.3 mg/dL (8.5-10.1); CREATININE 0.7 mg/dL (0.55-1.3); POTASSIUM 4.4 mmol/L (3.5-5.1); TOT PROT 5.5 g/dl (6.4-8.2)
[2018-12-24 12:18] LABS: PLATELET COUNT 238 K/MM3 (134-434)
--- NOTE | 2018-12-24 12:25 | PN ---
[facility] CIWA - CIWA Score Nausea/Vomitin-No Nausea/No Vomiting Muscle Tremors: None Anxiety: 4-Mod. Anxious/Guarded Agitation: 4-Moderately Restless Paroxysmal Sweats: No Perspiration Orientation: 0-Oriented Tacttile Disturbances: 2-Mild Itch/Numbness/Burn Auditory Disturbances: 0-None Visual Disturbances: 2-Mild Sensitivity Headache: 0-None Present CIWA-Ar Total Score: 12 BHS COWS - Scale Resting Pulse: 0= [place] 80 or Below Sweatin= No chills or Flushing Restless Observation: 1= Difficult to Sit Still Pupil Size: 0= Normal to Room Light Bone or Joint Aches: 2= Severe Diffuse Aches Runny Nose/ Eye Tearin= None GI Upset > 30mins: 0= None Tremor Observation of Outstretched Hands: 2= Slight Tremor Visible Yawning Observation: 1= 1-2x During Session Anxiety or Irritability: 2=Irritable/Anxious Goose Flesh Skin: 3=Piloerection COWS Score: 11 S Progress Note (SOAP) Subjective: Body Aches, Fatigue, Tremors, Anxious. Objective: PATIENT A & O X 3, OBSERVED AMBULATING ON UNIT UNASSISTED. IN NO ACUTE DISTRESS.. 12/24/18 12:26 Vital Signs Temperature 97.0 F L 12/24/18 09:28 Pulse Rate 60 12/24/18 09:28 Respiratory Rate 18 12/24/18 09:28 Blood Pressure 119/80 12/24/18 09:28 O2 Sat by Pulse Oximetry (%) Laboratory Tests 12/24/18 12/24/18 12/24/18 08:00 08:00 08:00 WBC 6.9 RBC 4.20 Hgb 12.2 Hct 36.6 MCV 87.1 MCH 29.0 MCHC 33.4 RDW 14.3 D Plt Count 238 MPV 8.1 D Sodium 140 Potassium 4.4 Chloride 108 H Carbon Dioxide 28 Anion Gap 4 L BUN 16.4 Creatinine 0.7 Est GFR (CKD-EPI)AfAm 136.81 Est GFR (CKD-EPI)NonAf 118.04 Random Glucose 86 Calcium 8.3 L Total Bilirubin 0.2 AST 9 L ALT 15 Alkaline Phosphatase 71 Total Protein 5.5 L Albumin 2.9 L RPR Titer Nonreactive LABS NOTED. Assessment: 12/24/18 12:27 WITHDRAWAL SYMPTOMS. Plan: CONTINUE DETOX.
--- NOTE | 2018-12-24 12:31 | DS ---
[facility] Detox Discharge Summary Admission Date: 12/23/18 Discharge Date: 12/24/18 - History Present History: Alcohol Dependence, Opioid Dependence, Sedative Dependence Additional Comments: DESPITE EFFORTS BY INSURANCE CLAIMS CLERK AND BY NURSING STAFF TO ADDRESS PATIENT'S MEDICAL NEEDS / CONCERNS, PATIENT DOES NOT WISH TO REMAIN TO COMPLETE DETOX REGIMEN. RISKS OF LEAVING DETOX UNIT AGAINST MEDICAL ADVICE AND PRIOR TO COMPLETION OF DETOX REGIMEN EXPLAINED TO PATIENT. PATIENT ADVISED TO GO IMMEDIATELY TO NEAREST ER SHOULD ANY INTOLERABLE WITHDRAWAL / DETOX SYMPTOMS DEVELOP AT ANY TIME. PATIENT VERBALIZED UNDERSTANDING OF ALL INFORMATION / RECOMMENDATIONS PRESENTED TO HIM PRIOR TO DEPARTURE FROM DETOX UNIT. PATIENT LEFT DETOX UNIT IN STABLE MEDICAL CONDITION. Pertinent Past History: Hep C (Treated), Depression, Bipolar Disorder, Attention Deficit Hyperactivity Disorder, History Of Seizures (Alcohol and Drug-Related), Depression, Insomnia, Nicotine Dependence. - Physical Exam Results Vital Signs: Vital Signs Temperature 97.0 F L 12/24/18 09:28 Pulse Rate 60 12/24/18 09:28 Respiratory Rate 18 12/24/18 09:28 Blood Pressure 119/80 12/24/18 09:28 O2 Sat by Pulse Oximetry (%) Pertinent Admission Physical Exam Findings: WITHDRAWAL SYMPTOMS. Laboratory Tests 12/24/18 12/24/18 12/24/18 08:00 08:00 08:00 WBC 6.9 RBC 4.20 Hgb 12.2 Hct 36.6 MCV 87.1 MCH 29.0 MCHC 33.4 RDW 14.3 D Plt Count 238 MPV 8.1 D Sodium 140 Potassium 4.4 Chloride 108 H Carbon Dioxide 28 Anion Gap 4 L BUN 16.4 Creatinine 0.7 Est GFR (CKD-EPI)AfAm 136.81 Est GFR (CKD-EPI)NonAf 118.04 Random Glucose 86 Calcium 8.3 L Total Bilirubin 0.2 AST 9 L ALT 15 Alkaline Phosphatase 71 Total Protein 5.5 L Albumin 2.9 L RPR Titer Nonreactive LABS NOTED. - Medication Discharge Medications: Ambulatory Orders Gabapentin 800 mg PO BID 12/23/18 Mirtazapine 15 mg PO HS 12/23/18 Quetiapine Fumarate [Seroquel -] 400 mg PO BID 12/23/18 - Diagnosis (1) Alcohol dependence with uncomplicated withdrawal Status: Acute (2) Opioid dependence with withdrawal Status: Acute (3) Sedative, hypnotic or anxiolytic dependence with withdrawal, uncomplicated Status: Acute (4) Depression Status: Chronic Qualifiers: Depression Type: unspecified Qualified Code(s): F32.9 - Major depressive disorder, single episode, unspecified (5) Insomnia Status: Chronic Qualifiers: Insomnia type: unspecified Qualified Code(s): G47.00 - Insomnia, unspecified (6) Nicotine dependence Status: Chronic Qualifiers: Nicotine product type: cigarettes Substance use status: in withdrawal Qualified Code(s): F17.213 - Nicotine dependence, cigarettes, with withdrawal - AMA Did Patient Leave Against Medical Advice: Yes (PATIENT DID NOT WISH TO COMPLETE DETOX REGIMEN.)
[2018-12-25] MEDS ORDERED: diazePAM 5 MG TABLET PO SCH (06:00)
[2018-12-25] MEDS ORDERED: METHADONE HCL 10 MG TABLET (FOR DETOX USE ONLY) PO ONE (10:00)
[2018-12-26] MEDS ORDERED: diazePAM 5 MG TABLET PO ONE (06:00)
[2018-12-26] MEDS ORDERED: METHADONE HCL 5 MG TABLET (FOR DETOX USE ONLY) PO ONE (06:00)
== END 2018-12-24 11:34 | disposition left against medical advice (07) | DRG 770 ==
LOC: YASAS 14:16 → Y3N 17:37
PROVIDERS: ADMIT Surgery; ATTEND Surgery
PROC: HZ2ZZZZ Detoxification Services for Substance Abuse Treatment (ICD-10-PCS; principal; 2018-12-23)
DX: F10.230 Alcohol dependence with withdrawal, uncomplicated (principal); F11.23 Opioid dependence with withdrawal; F13.230 Sedative, hypnotic or anxiolytic dependence with withdrawal, uncomplicated; F14.20 Cocaine dependence, uncomplicated; F16.10 Hallucinogen abuse, uncomplicated; F17.210 Nicotine dependence, cigarettes, uncomplicated; F31.9 Bipolar disorder, unspecified; F90.9 Attention-deficit hyperactivity disorder, unspecified type; F32.9 Major depressive disorder, single episode, unspecified; G47.00 Insomnia, unspecified; B18.2 Chronic viral hepatitis C; Z86.69 Personal history of other diseases of the nervous system and sense organs; Z91.013 Allergy to seafood; Z91.030 Bee allergy status
CPT/HCPCS: 36415; 80053; 85027; 86593

== ENCOUNTER 2019-01-20 12:34 | Inpatient (IN) | payer OTHER ==
[2019-01-20 15:30] VITALS: BMI 26.4
--- NOTE | 2019-01-20 18:08 | HP ---
"COWS - Scale Resting Pulse: 0= [place] 80 or Below Sweatin=Flushed/Facial Moisture Restless Observation: 3= Extraneous Movement Pupil Size: 2= Moderately Dilated (Pupils = 5 mm) Bone or Joint Aches: 1= Mild Discomfort Runny Nose/ Eye Tearin= Nasal Congestion GI Upset > 30mins: 1= Stomach Cramp Tremor Observation: 2= Slight Tremor Visible Yawning Observation: 0= None Anxiety or Irritability: 2=Irritable/Anxious Goose Flesh Skin: 0=Smooth Skin COWS Score: 14 CIWA Score Nausea/Vomitin-No Nausea/No Vomiting Muscle Tremors: 4-Moderate,w/Arms Extend Anxiety: 3 Agitation: 3 Paroxysmal Sweats: 3 (Increased facial moisture) Orientation: 0-Oriented Tacttile Disturbances: 0-None Auditory Disturbances: 0-None Visual Disturbances: 0-None Headache: 0-None Present CIWA-Ar Total Score: 13 - Admission Criteria OASAS Guidelines: Admission for Medically Managed Detox: Requires at least one of the followin. CIWA greater than 12 2. Seizures within the past 24 hours 3. Delirium tremens within the past 24 hours 4. Hallucinations within the past 24 hours 5. Acute intervention needed for co occurring medical disorder 6. Acute intervention needed for co occurring psychiatric disorder 7. Severe withdrawal that cannot be handled at a lower level of care (continued vomiting, continued diarrhea, abnormal vital signs) requiring intravenous medication and/or fluids 8. Patient presents the following: CIWA greater than 12 Admission Criteria Met: Admission criteria met Admission ROS [facility] Chief Complaint: I am having Heroin, benzo and alcohol withdrawal. Allergies/Adverse Reactions: Allergies Allergy/AdvReac Type Severity Reaction Status Date / Time venom-honey bee Allergy Severe Difficulty Verified 01/20/19 15:21 [bee venom (honey bee)] Breathing Fish Containing Products Allergy Mild Difficulty Verified 01/20/19 15:21 Breathing No Known Drug Allergies Allergy Verified 01/20/19 15:21 bee stings Allergy Severe Difficulty Uncoded 01/20/19 15:21 Breathing History of Present Illness: 38 yo presents w/ opioid and alcohol withdrawal symptoms and requesting detox. Heroin use began at age 16. Current use of 15-25 bags IV. Denies sharing needles or works. Has a NARCAN kIT @ home. Cocaine use began at age 13. Alcohol use began at age 9. States current use is 1/2 pint liquor and several beers about 5-6 days/week. Benzo - states uses up to 6 mg daily, but Utox does not support this use. Nicotine use began at age 12. Currently smokes 1-1.5 PPD Is receiving Suboxone @ [facility]. Patient states hasn't taken Suboxone in 2 weeks and U-tox supports this. Patient does not want to be put back on Suboxone. Patient called [facility] and left a message stating he was here at [facility] and would be detoxed from heroin w/ methadone. Hx: 7 overdoses - last approx 1 yr ago. Last blackout approx 1 yr ago. Denies hx seizures. PMHx: Denies significant PMH. Last EK04/29/18 = Abnormal Multiple RPR's this year. Last less than 1 month ago. Will not repeat this visit. MHHx: ADHD, Insomnia, Bipolar; Anxiety: States on MH meds. last saw MH Provider 2 weeks ago. Denies thoughts of harming self or others. Patient Name: Donnell Spears Date: 1980 Address: [address] [place] [address] Sex: Male Rx Written Rx Dispensed Drug Quantity Days Supply Prescriber Name 01/06/2019 01/09/2019 buprenorphine-naloxone 8-2 mg sl film 60 20 Vaughn Arevalo (AUTOMATION TECH) 12/27/2018 12/27/2018 buprenorphine-naloxone 8-2 mg sl film 45 15 Vaughn Arevalo (AUTOMATION TECH) 12/08/2018 12/08/2018 buprenorphine-naloxone 8-2 mg sl film 45 15 Vaughn Arevalo (AUTOMATION TECH) 11/24/2018 11/24/2018 buprenorphine-naloxone 8-2 mg sl film 40 14 Vaughn Arevalo (AUTOMATION TECH) 11/11/2018 11/11/2018 buprenorphine-naloxone 8-2 mg sl film 45 15 Robyn Bower 10/13/2018 10/13/2018 buprenorphine-naloxone 8-2 mg sl film 84 28 Vaughn Arevalo (AUTOMATION TECH) 10/06/2018 10/06/2018 buprenorphine-naloxone 8-2 mg sl film 18 9 Vaughn Arevalo (AUTOMATION TECH) Search Terms: Naveed Spears, 1980 Search Date: 01/20/2019 05:52:30 PM States Searched: [place], [place], [place], [place], [place], [place], [place], [place] The Drug Utilization Report below displays the controlled substance prescriptions, if any, that were dispensed in the indicated state(s). The information displayed on this report is compiled from requests submitted to other states' PMPs, and accurately reflects the information as returned by them. Blank williamson indicate data not provided by other state. This report was requested by: Isabelmamie Patricia | Reference #: [id number] Exam Limitations: No Limitations - Ebola screening Have you traveled outside of the country in the last 21 days: No Have you had contact with anyone from an Ebola affected area: No Have you been sick,other than usual withdrawal symptoms: No (Denies recent exposure to measles) Do you have a fever: No - Review of Systems Constitutional: Chills, Diaphoresis, Changes in sleep (Difficulty falling and staying asleep) EENT: reports: Dental Problems (has dentures. Chews and swallows ok.) Respiratory: reports: No Symptoms reported Cardiac: reports: No Symptoms Reported GI: reports: Indigestion (Heart burn) : reports: No Symptoms Reported Musculoskeletal: reports: Back Pain (Intermittemt chronic LPB . Sharp. Increases w/ standing alot. Improves w/ neurontin or lidocaine patch) Integumentary: reports: No Symptoms Reported Neuro: reports: Tremors Endocrine: reports: Intolerance to Cold Hematology: reports: No Symptoms Reported Psychiatric: reports: Judgement Intact, Orientated x3, Agitated, Anxious, Depressed (Denies thoughts of harming self or others.) Patient History - Patient Medical History Hx Anemia: No Hx Asthma: No Hx Chronic Obstructive Pulmonary Disease (COPD): No Hx Cancer: No Hx Cardiac Disorders: No Hx Congestive Heart Failure: No Hx Hypertension: No Hx Hypercholesterolemia: No Hx Pacemaker: No HX Cerebrovascular Accident: No Hx Seizures: No Hx Dementia: No Hx Diabetes: No Hx Gastrointestinal Disorders: No Hx Liver Disease: Yes (Hep C and treated ) Hx Genitourinary Disorders: No Hx Sexually Transmitted Disorders: No Hx Renal Disease (ESRD): No Hx Thyroid Disease: No Hx Human Immunodeficiency Virus (HIV): No (negative last 08/09 negative) Hx Hepatitis C: Yes (treated - undetectable vl) Hx Depression: Yes Hx Suicide Attempt: Yes (TEENAGE) Hx Bipolar Disorder: Yes (reports no psych tx in years/ adhd) Hx Schizophrenia: Yes - Patient Surgical History Past Surgical History: Yes Hx Neurologic Surgery: No Hx Cataract Extraction: No Hx Cardiac Surgery: No Hx Lung Surgery: No Hx Breast Surgery: No Hx Breast Biopsy: No Hx Abdominal Surgery: No Hx Appendectomy: No Hx Cholecystectomy: No Hx Genitourinary Surgery: No Hx Section: No Hx Orthopedic Surgery: No Other Surgical History: Sx for abscess Drainage + TISSUE REMOVAL R hand in 04/04 , Tonsillectomy 7y Anesthesia Reaction: No - PPD History Previous Implant?: Yes Documented Results: Negative w/proof Implanted On Prior [facility] Admission?: Yes Date: 07/09/18 Results: 0 mm PPD to be Administered?: No - Smoking Cessation Smoking history: Current every day smoker Have you smoked in the past 12 months: Yes Aproximately how many cigarettes per day: 30 Cigars Per Day: 0 Hx Chewing Tobacco Use: No Initiated information on smoking cessation: Yes 'Breaking Loose' booklet given: 01/20/19 - Substance & Tx. History Hx Alcohol Use: Yes Hx Substance Use: Yes Substance Use Type: Alcohol, Cocaine, Heroin, Tranquilizers (benzo) Hx Substance Use Treatment: Yes (detox, rehab, Suboxone) - Substances abused Heroin Substance route: Injection Frequency: Daily Amount used: 15-25BAGS Age of first use: 16 Date of last use: 01/20/19 Cocaine Substance route: Injection Frequency: Daily Amount used: 3 bags Age of first use: 13 Date of last use: 01/19/19 Benzodiazepine (Klonopin) Substance route: Oral Frequency: 3-6 times per week Amount used: 3mg to 6mg Age of first use: 12 Date of last use: 01/19/19 Alcohol Substance route: Oral Frequency: 3-6 times per week Amount used: 8 BEERS, 1/2PINT Age of first use: 9 Date of last use: 01/19/19 PCP Substance route: Smoking Frequency: No use in 30 days Amount used: 1 JOINT Age of first use: 16 Date of last use: 12/19/18 Family Disease History - Family Disease History Family Disease History: Heart Disease: Mother (hx CVA - alive), Other: Mother Admission Physical Exam BHS - Vital Signs Vital Signs: Vital Signs - 24 hr 01/20/19 15:20 Temperature 98.2 F Pulse Rate 69 Respiratory 16 Rate Blood Pressure 117/76 - Physical General Appearance: Yes: Nourished, Mild Distress, Tremorous, Irritable, Sweating (Increased facial moisture), Anxious HEENTM: Yes: EOMI, Hearing grossly Normal, Normal ENT Inspection, Normocephalic , Normal Voice, [place] (Pupils = 5 mm), Pharynx Normal, Other (Thickened saliva) Respiratory: Yes: Lungs Clear, Normal Breath Sounds, No Respiratory Distress Neck: Yes: No masses,lesions,Nodules, Supple Breast: Yes: Breast Exam Deferred Cardiology: Yes: Regular Rhythm, Regular Rate (HR: 68), S1, S2 Abdominal: Yes: Non Tender, Flat, Soft, Increased Bowel Sounds Genitourinary: Yes: Within Normal Limits Back: Yes: Normal Inspection Musculoskeletal: Yes: full range of Motion, Gait Steady Extremities: Yes: Normal Capillary Refill, Tremors 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: Yes: yeast tender II-XII NML intact, Fully Oriented, Alert, Motor Strength 5/5, Normal Response Integumentary: Yes: Normal Color, Warm, Track Swenson (Old an new on arms/hands. No increased warmth or erythema.), Other (Decreased skin turgor) Lymphatic: Yes: Within Normal Limits - Diagnostic (1) Alcohol dependence with uncomplicated withdrawal Current Visit: Yes Status: Acute (2) Opioid dependence with withdrawal Current Visit: Yes Status: Acute (3) Cocaine dependence Current Visit: Yes Status: Chronic Qualifiers: Substance use status: uncomplicated Qualified Code(s): F14.20 - Cocaine dependence, uncomplicated (4) Nicotine dependence Current Visit: Yes Status: Chronic Qualifiers: Nicotine product type: cigarettes Substance use status: in withdrawal Qualified Code(s): F17.213 - Nicotine dependence, cigarettes, with withdrawal Cleared for Admission [facility] - Detox or Rehab [facility] Level of Care: Medically Managed Detox Regimen/Protocol: Methadone/Valium (per patients' request) Claeared for Rehab Admission: No Breathalyzer - Breathalyzer Breathalyzer: 0 Urine Drug Screen - Test Device Lot number: [id number] Expiration date: 10/18/20 - Control Is test valid?: Yes - Results Drug screen NEGATIVE: No Urine drug screen results: THC-Marijuana, RENAE-Cocaine, FEN-Fentanyl, MOP-Opiates Inpatient Rehab Admission - Rehab Decision to Admit Inpatient rehab admission?: No"
[2019-01-20] MEDS ORDERED: diazePAM 5 MG TABLET PO PRN (18:33)
[2019-01-20] MEDS ORDERED: diazePAM 5 MG TABLET PO ONE (18:33)
[2019-01-20] MEDS ORDERED: METHOCARBAMOL 500 MG TABLET PO PRN (18:33)
[2019-01-20] MEDS ORDERED: MAGNESIUM CITRATE 300 ML BOTTLE PO PRN (18:33)
[2019-01-20] MEDS ORDERED: IBUPROFEN 400 MG TABLET (FP) PO PRN (18:33)
[2019-01-20] MEDS ORDERED: MENTHOL/PHENOL 1 EACH UD MM PRN (18:33)
[2019-01-20] MEDS ORDERED: MAGNESIUM HYDROX 2400MG/30ML ORAL SUSPENSION 30 ML CUP PO PRN (18:33)
[2019-01-20] MEDS ORDERED: MAG HYDROX/AL HYDROX/SIMETH 30 ML UNIT-DOSE CUP PO PRN (18:33)
[2019-01-20] MEDS ORDERED: MELATONIN 5 MG TABLETS PO PRN (18:33)
[2019-01-20] MEDS ORDERED: ACETAMINOPHEN 325 MG TABLET (FP) PO PRN ×2 (18:33)
[2019-01-20] MEDS ORDERED: cloNIDine HCL 0.1 MG TABLET PO PRN (18:33)
[2019-01-20] MEDS ORDERED: BISMUTH SUBSALICYLATE 524 MG/30 ML UD PO PRN (18:33)
[2019-01-20] MEDS ORDERED: METHADONE HCL 10 MG TABLET (FOR DETOX USE ONLY) PO ONE (18:33)
[2019-01-20] MEDS ORDERED: NICOTINE POLACRILEX 4 MG GUM BUC PRN (18:33)
[2019-01-20] MEDS ORDERED: THIAMINE HCL 100 MG TABLET (FP) PO SCH (22:00)
[2019-01-20] MEDS: diazePAM 5 MG TABLET PO SCH (22:05)
[2019-01-20] MEDS: BACITRACIN 0.9 GM PACKET TP SCH (22:08)
[2019-01-20] MEDS ORDERED: QUEtiapine FUMARATE 100 MG TABLET (FP) PO ONE (23:00)
[2019-01-21] MEDS: diazePAM 5 MG TABLET PO SCH (07:11)
[2019-01-21] MEDS ORDERED: METHADONE HCL 10 MG TABLET (FOR DETOX USE ONLY) ONE (08:56)
[2019-01-21] MEDS ORDERED: METHADONE HCL 5 MG TABLET (FOR DETOX USE ONLY) ONE (08:56)
[2019-01-21 09:44] VITALS: BP 128/84; PULSE 58; TEMP 97.6
[2019-01-21] MEDS ORDERED: NICOTINE 21 MG/24 HOURS TOPICAL PATCH TD SCH (10:00)
[2019-01-21] MEDS ORDERED: PRENATAL VITAMINS W/ FOLIC ACID TABLET (FP) PO SCH (10:00)
[2019-01-21] MEDS ORDERED: LIDOCAINE 5% TOPICAL PATCH TP SCH (10:00)
[2019-01-21] MEDS ORDERED: METHADONE (DETOX) 20 MG, METHADONE (DETOX) 5 MG PO ONE (10:00)
[2019-01-21] MEDS: BACITRACIN 0.9 GM PACKET TP SCH (10:07)
--- NOTE | 2019-01-21 10:47 | CONSULT ---
[facility] Psychiatric Consult - Data Date of interview: 01/21/19 Admission source: [facility] Identifying data: Patient refuses to talk to tech writer. " I am fine. I don't need to talk to psychiatrists." Nursing staff is made aware.
[2019-01-21 10:54] LABS: HEMATOCRIT 38.6 % (35.4-49); HEMOGLOBIN 12.8 GM/dL (11.7-16.9); MCH 28.9 pg (25.7-33.7); MCHC 33.3 g/dl (32.0-35.9); MEAN CELL VOLUME 86.9 fl (80-96); MEAN PLT VOLUME 8.3 fl (7.5-11.1); PLATELET COUNT 240 K/MM3 (134-434); RBC 4.44 M/mm3 (4.00-5.60); RDW 14.2 % (11.9-15.9); WHITE BLOOD COUNT 5.4 K/mm3 (4.0-10.0)
[2019-01-21 11:02] LABS: ALBUMIN 3.1 g/dl (3.4-5.0); BILIRUBIN,TOTAL 0.2 mg/dL (0.2-1); BLOOD UREA NITROGEN 17.6 mg/dL (7-18); CALCIUM 8.5 mg/dL (8.5-10.1); CREATININE 0.8 mg/dL (0.55-1.3); POTASSIUM 4.3 mmol/L (3.5-5.1); TOT PROT 6.1 g/dl (6.4-8.2)
--- NOTE | 2019-01-21 16:26 | PN ---
[facility] CIWA - CIWA Score Nausea/Vomitin-No Nausea/No Vomiting Muscle Tremors: None Anxiety: 4-Mod. Anxious/Guarded Agitation: 3 Paroxysmal Sweats: 2 Orientation: 0-Oriented Tacttile Disturbances: 2-Mild Itch/Numbness/Burn Auditory Disturbances: 0-None Visual Disturbances: 0-None Headache: 0-None Present CIWA-Ar Total Score: 11 BHS COWS - Scale Resting Pulse: 0= [place] 80 or Below Sweatin= Chills/Flushing Restless Observation: 1= Difficult to Sit Still Pupil Size: 0= Normal to Room Light Bone or Joint Aches: 2= Severe Diffuse Aches Runny Nose/ Eye Tearin= None GI Upset > 30mins: 0= None Tremor Observation of Outstretched Hands: 0= None Yawning Observation: 1= 1-2x During Session Anxiety or Irritability: 2=Irritable/Anxious Goose Flesh Skin: 3=Piloerection COWS Score: 10 S Progress Note (SOAP) Subjective: Anxious, Restless, Body Aches, Sweating. Objective: PATIENT A & O X 3, OBSERVED AMBULATING ON UNIT UNASSISTED. IN NO ACUTE DISTRESS. 01/21/19 16:25 Vital Signs Temperature 97.6 F 01/21/19 09:43 Pulse Rate 58 L 01/21/19 09:43 Respiratory Rate 17 01/21/19 09:43 Blood Pressure 128/84 01/21/19 09:43 O2 Sat by Pulse Oximetry (%) Laboratory Tests 01/21/19 01/21/19 07:30 07:30 WBC 5.4 RBC 4.44 Hgb 12.8 Hct 38.6 MCV 86.9 MCH 28.9 MCHC 33.3 RDW 14.2 Plt Count 240 MPV 8.3 Sodium 140 Potassium 4.3 Chloride 108 H Carbon Dioxide 27 Anion Gap 5 L BUN 17.6 Creatinine 0.8 Est GFR (CKD-EPI)AfAm 129.51 Est GFR (CKD-EPI)NonAf 111.74 Random Glucose 87 Calcium 8.5 Total Bilirubin 0.2 AST 11 L ALT 12 L Alkaline Phosphatase 67 Total Protein 6.1 L Albumin 3.1 L LABS NOTED. Assessment: 01/21/19 16:25 WITHDRAWAL SYMPTOMS. Plan: CONTINUE DETOX.
--- NOTE | 2019-01-21 16:29 | DS ---
[facility] Detox Discharge Summary Admission Date: 01/20/19 Discharge Date: 01/21/19 - History Present History: Alcohol Dependence, Cocaine Dependence, Opioid Dependence Additional Comments: DESPITE EFFORTS BY CAP MAKER AND BY NURSING STAFF TO ADDRESS PATIENT'S MEDICAL NEEDS / CONCERNS, PATIENT DOES NOT WISH TO REMAIN TO COMPLETE DETOX REGIMEN. RISKS OF LEAVING DETOX UNIT AGAINST MEDICAL ADVICE AND PRIOR TO COMPLETION OF DETOX REGIMEN EXPLAINED TO PATIENT. PATIENT ADVISED TO GO IMMEDIATELY TO NEAREST ER SHOULD ANY INTOLERABLE WITHDRAWAL / DETOX SYMPTOMS DEVELOP AT ANY TIME. PATIENT VERBALIZED UNDERSTANDING OF ALL INFORMATION / RECOMMENDATIONS PRESENTED TO HIM PRIOR TO DEPARTURE FROM DETOX UNIT. PATIENT LEFT DETOX UNIT IN STABLE MEDICAL CONDITION. Pertinent Past History: A.D.H.D., Anxiety, Bipolar Disorder, Insomnia, Nicotine Dependence, Hep C ( Treated), Schizophrenia. - Physical Exam Results Vital Signs: Vital Signs Temperature 97.6 F 01/21/19 09:43 Pulse Rate 58 L 01/21/19 09:43 Respiratory Rate 17 01/21/19 09:43 Blood Pressure 128/84 01/21/19 09:43 O2 Sat by Pulse Oximetry (%) Pertinent Admission Physical Exam Findings: WITHDRAWAL SYMPTOMS. Laboratory Tests 01/21/19 01/21/19 07:30 07:30 WBC 5.4 RBC 4.44 Hgb 12.8 Hct 38.6 MCV 86.9 MCH 28.9 MCHC 33.3 RDW 14.2 Plt Count 240 MPV 8.3 Sodium 140 Potassium 4.3 Chloride 108 H Carbon Dioxide 27 Anion Gap 5 L BUN 17.6 Creatinine 0.8 Est GFR (CKD-EPI)AfAm 129.51 Est GFR (CKD-EPI)NonAf 111.74 Random Glucose 87 Calcium 8.5 Total Bilirubin 0.2 AST 11 L ALT 12 L Alkaline Phosphatase 67 Total Protein 6.1 L Albumin 3.1 L LABS NOTED. - Medication Discharge Medications: Ambulatory Orders Mirtazapine 15 mg PO HS 12/23/18 Quetiapine Fumarate [Seroquel -] 400 mg PO BID 12/23/18 - Diagnosis (1) Alcohol dependence with uncomplicated withdrawal Status: Acute (2) Opioid dependence with withdrawal Status: Acute (3) Cocaine dependence Status: Chronic Qualifiers: Substance use status: uncomplicated Qualified Code(s): F14.20 - Cocaine dependence, uncomplicated (4) Nicotine dependence Status: Chronic Qualifiers: Nicotine product type: cigarettes Substance use status: in withdrawal Qualified Code(s): F17.213 - Nicotine dependence, cigarettes, with withdrawal - AMA Did Patient Leave Against Medical Advice: Yes (PATIENT DID NOT WISH TO REMAIN TO COMPLETE DETOX REGIMEN.)
[2019-01-21] MEDS ORDERED: LIDOCAINE PATCH REMOVAL MC SCH (22:00)
[2019-01-22] MEDS ORDERED: diazePAM 5 MG TABLET PO SCH (06:00)
--- NOTE | 2019-01-22 09:18 | EKG ---
Test Reason : Blood Pressure : / mmHG Vent. Rate : 062 BPM Atrial Rate : 062 BPM P-R Int : 162 ms QRS Dur : 082 ms QT Int : 424 ms P-R-T Axes : 047 043 053 degrees QTc Int : 430 ms NORMAL SINUS RHYTHM NORMAL ECG WHEN COMPARED WITH ECG OF 30-APR-2018 00:19, NO SIGNIFICANT CHANGE WAS FOUND Confirmed by GARETT HENRY MD ([id number]) on 01/22/2019 9:17:46 AM Referred By: SOUMYA GLOVER Confirmed By:GARETT HENRY MD
[2019-01-22] MEDS ORDERED: METHADONE HCL 10 MG TABLET (FOR DETOX USE ONLY) PO ONE (10:00)
[2019-01-23] MEDS ORDERED: diazePAM 5 MG TABLET PO ONE (06:00)
[2019-01-23] MEDS ORDERED: METHADONE (DETOX) 10 MG, METHADONE (DETOX) 5 MG PO ONE (10:00)
[2019-01-24] MEDS ORDERED: METHADONE HCL 10 MG TABLET (FOR DETOX USE ONLY) PO ONE (10:00)
[2019-01-25] MEDS ORDERED: METHADONE HCL 5 MG TABLET (FOR DETOX USE ONLY) PO ONE (06:00)
== END 2019-01-21 10:30 | disposition left against medical advice (07) | DRG 770 ==
LOC: YASAS 12:34 → Y3N 18:26
PROVIDERS: ADMIT Surgery; ATTEND Surgery
PROC: HZ2ZZZZ Detoxification Services for Substance Abuse Treatment (ICD-10-PCS; principal; 2019-01-20)
DX: F11.23 Opioid dependence with withdrawal (principal); F10.230 Alcohol dependence with withdrawal, uncomplicated; F14.20 Cocaine dependence, uncomplicated; F17.213 Nicotine dependence, cigarettes, with withdrawal; Z91.013 Allergy to seafood; Z91.038 Other insect allergy status; Z91.5 Personal history of self-harm
CPT/HCPCS: 36415; 80053; 85027; 93005; 93010; J0735

== ENCOUNTER 2019-02-28 11:53 | Inpatient (IN) | payer OTHER ==
[2019-02-28 15:08] VITALS: BMI 24.3
--- NOTE | 2019-02-28 16:45 | HP ---
COWS - Scale Resting Pulse: 1= [place] 81-100 Sweatin= Chills/Flushing Restless Observation: 3= Extraneous Movement Pupil Size: 0= Normal to Room Light Bone or Joint Aches: 1= Mild Discomfort Runny Nose/ Eye Tearin= Runny Nose/Eyes GI Upset > 30mins: 2= Nausea/Diarrhea Tremor Observation: 2= Slight Tremor Visible Yawning Observation: 1= 1-2x During Session Anxiety or Irritability: 1=Feels Anxious/Irritable Goose Flesh Skin: 0=Smooth Skin COWS Score: 14 CIWA Score Nausea/Vomitin-Mild Nausea/No Vomiting Muscle Tremors: 3 Anxiety: 3 Agitation: 3 Paroxysmal Sweats: 2 Orientation: 0-Oriented Tacttile Disturbances: 0-None Auditory Disturbances: 0-None Visual Disturbances: 0-None Headache: 2-Mild CIWA-Ar Total Score: 14 - Admission Criteria OASAS Guidelines: Admission for Medically Managed Detox: Requires at least one of the followin. CIWA greater than 12 2. Seizures within the past 24 hours 3. Delirium tremens within the past 24 hours 4. Hallucinations within the past 24 hours 5. Acute intervention needed for co occurring medical disorder 6. Acute intervention needed for co occurring psychiatric disorder 7. Severe withdrawal that cannot be handled at a lower level of care (continued vomiting, continued diarrhea, abnormal vital signs) requiring intravenous medication and/or fluids 8. Admission ROS [facility] Chief Complaint: alcoho/heroin detox Allergies/Adverse Reactions: Allergies Allergy/AdvReac Type Severity Reaction Status Date / Time venom-honey bee Allergy Severe Difficulty Verified 02/28/19 14:58 [bee venom (honey bee)] Breathing Fish Containing Products Allergy Mild Difficulty Verified 02/28/19 14:58 Breathing bee stings Allergy Severe Difficulty Uncoded 02/28/19 14:58 Breathing History of Present Illness: Patient is a 38 yo M with a PMhx of anxiety,depression, bipolar, adhd, presenting here for alcohol/heroin detox. Last drink late last night, early this morning. Drinks 3-24oz beers, and a half pint of liquor 5 times a week. hx of seizures last being 4 years ago. Last blackout 7 months ago. Says he wants to stop and needs to get cleaned up. He also has a few court dates and says this could help. He also does IV heroin/cocaine everyday. 10-18 bags a day. Last heroin use last night. 8 bags. Unemployed. Lives with his mother. Carries a narcan pen with him. Smokes 1PPD-1.5 PPD. - Ebola screening Have you traveled outside of the country in the last 21 days: No (N) Have you had contact with anyone from an Ebola affected area: No Do you have a fever: No - Review of Systems Constitutional: Unintentional Wgt. Loss Respiratory: denies: Cough, Shortness of Breath Cardiac: denies: Chest Pain, Palpitations Neuro: reports: Tremors. denies: Numbness, Tingling Patient History - Patient Medical History Hx Anemia: No Hx Asthma: No Hx Chronic Obstructive Pulmonary Disease (COPD): No Hx Cancer: No Hx Cardiac Disorders: No Hx Congestive Heart Failure: No Hx Hypertension: No Hx Hypercholesterolemia: No Hx Pacemaker: No HX Cerebrovascular Accident: No Hx Seizures: No Hx Dementia: No Hx Diabetes: No Hx Gastrointestinal Disorders: No Hx Liver Disease: Yes (Hep C and treated ) Hx Genitourinary Disorders: No Hx Sexually Transmitted Disorders: No Hx Renal Disease (ESRD): No Hx Thyroid Disease: No Hx Human Immunodeficiency Virus (HIV): No (negative last 08/09 negative) Hx Hepatitis C: Yes (treated - undetectable vl) Hx Depression: Yes Hx Suicide Attempt: Yes (TEENAGE) Hx Bipolar Disorder: Yes (reports no psych tx in years/ adhd) Hx Schizophrenia: Yes - Patient Surgical History Past Surgical History: Yes Hx Neurologic Surgery: No Hx Cataract Extraction: No Hx Cardiac Surgery: No Hx Lung Surgery: No Hx Breast Surgery: No Hx Breast Biopsy: No Hx Abdominal Surgery: No Hx Appendectomy: No Hx Cholecystectomy: No Hx Genitourinary Surgery: No Hx Section: No Hx Orthopedic Surgery: No Other Surgical History: Sx for abscess Drainage + TISSUE REMOVAL R hand in 04/04 , Tonsillectomy 7y Anesthesia Reaction: No - PPD History Date: 07/09/18 Results: 0 mm - Smoking Cessation Smoking history: Current every day smoker Have you smoked in the past 12 months: Yes Aproximately how many cigarettes per day: 30 Cigars Per Day: 0 Hx Chewing Tobacco Use: No Initiated information on smoking cessation: Yes 'Breaking Loose' booklet given: 02/28/19 - Substances abused Heroin Substance route: Injection Frequency: Daily Amount used: 15-25BAGS Age of first use: 16 Date of last use: 02/28/19 Cocaine Substance route: Injection Frequency: Daily Amount used: 3 bags Age of first use: 13 Date of last use: 02/27/19 Benzodiazepine (Klonopin) Substance route: Oral Frequency: 3-6 times per week Amount used: 3mg to 6mg Age of first use: 12 Date of last use: 02/28/19 Alcohol Substance route: Oral Frequency: 3-6 times per week Amount used: 8 BEERS, 1/2PINT Age of first use: 9 Date of last use: 02/27/19 PCP Substance route: Smoking Frequency: 1-3 times last 30 days Amount used: 1 JOINT Age of first use: 16 Date of last use: 02/24/19 Family Disease History - Family Disease History Family Disease History: Heart Disease: Mother (hx CVA - alive), Other: Mother Admission Physical Exam S - Vital Signs Vital Signs: Vital Signs - 24 hr 02/28/19 14:58 Temperature 97.0 F L Pulse Rate 85 Respiratory 16 Rate Blood Pressure 140/90 - Physical General Appearance: Yes: No Apparent Distress Respiratory: Yes: No Respiratory Distress, No Accessory Muscle Use Cardiology: Yes: Regular Rhythm, Regular Rate Abdominal: Yes: Non Tender, Soft Integumentary: Yes: Track Pineda (scattered b/l UE track pineda.) - Diagnostic (1) Alcohol dependence with uncomplicated withdrawal Current Visit: No Status: Acute (2) Opioid dependence with withdrawal Current Visit: No Status: Acute (3) Substance-induced sleep disorder Current Visit: No Status: Acute (4) Weight decreased Current Visit: No Status: Acute (5) ADHD (attention deficit hyperactivity disorder) Current Visit: No Status: Chronic Qualifiers: Attention deficit-hyperactivity disorder type: unspecified Qualified Code(s ): F90.9 - Attention-deficit hyperactivity disorder, unspecified type Comment: As per self-report. Asymptomatic during this examination. (6) Bipolar disorder Current Visit: No Status: Chronic Qualifiers: Active/Remission status: remission status unspecified Qualified Code(s): F31.9 - Bipolar disorder, unspecified (7) Cannabis dependence Current Visit: No Status: Chronic (8) Depression Current Visit: No Status: Chronic Qualifiers: Depression Type: unspecified Qualified Code(s): F32.9 - Major depressive disorder, single episode, unspecified (9) Hepatitis C Current Visit: No Status: Chronic Qualifiers: Viral hepatitis chronicity: chronic Hepatic coma status: without hepatic coma Qualified Code(s): B18.2 - Chronic viral hepatitis C Comment: completed treatment Breathalyzer - Breathalyzer Breathalyzer: 0 Urine Drug Screen - Test Device Lot number: [id number] Expiration date: 11/18/20 - Control Is test valid?: Yes - Results Drug screen NEGATIVE: No Urine drug screen results: RENAE-Cocaine, FEN-Fentanyl, MOP-Opiates, OXY-Oxycodone Inpatient Rehab Admission - Rehab Decision to Admit Inpatient rehab admission?: No
[2019-02-28] MEDS ORDERED: hydrOXYzine PAMOATE 25 MG CAPSULE (FP) PO PRN (17:13)
[2019-02-28] MEDS ORDERED: METHOCARBAMOL 500 MG TABLET PO PRN (17:13)
[2019-02-28] MEDS ORDERED: diazePAM 5 MG TABLET PO PRN (17:13)
[2019-02-28] MEDS ORDERED: MELATONIN 5 MG TABLETS PO PRN (17:13)
[2019-02-28] MEDS ORDERED: MENTHOL/PHENOL 1 EACH UD MM PRN (17:13)
[2019-02-28] MEDS ORDERED: cloNIDine HCL 0.1 MG TABLET PO PRN (17:13)
[2019-02-28] MEDS ORDERED: BISMUTH SUBSALICYLATE 524 MG/30 ML UD PO PRN (17:13)
[2019-02-28] MEDS ORDERED: IBUPROFEN 400 MG TABLET (FP) PO PRN (17:13)
[2019-02-28] MEDS ORDERED: ACETAMINOPHEN 325 MG TABLET (FP) PO PRN ×2 (17:13)
[2019-02-28] MEDS ORDERED: MAGNESIUM CITRATE 300 ML BOTTLE PO PRN (17:13)
[2019-02-28] MEDS ORDERED: MAGNESIUM HYDROX 2400MG/30ML ORAL SUSPENSION 30 ML CUP PO PRN (17:13)
[2019-02-28] MEDS ORDERED: MAG HYDROX/AL HYDROX/SIMETH 30 ML UNIT-DOSE CUP PO PRN (17:13)
--- NOTE | 2019-02-28 17:13 | PN ---
Teaching Attending Note Name of Resident: Pritesh Leone ATTENDING PHYSICIAN STATEMENT I saw and evaluated the patient. I reviewed the resident's note and discussed the case with the resident. I agree with the resident's findings and plan as documented. SUBJECTIVE: 38 yo with h/o alcohol and opioid use disorder- last here about a month ago. Uses alcohol 3 24 oz beer and a pint of liqour 3-5 X week. 10-18 bags/heroin and cocaine OBJECTIVE: Vital Signs - 24 hr 02/28/19 14:58 Temperature 97.0 F L Pulse Rate 85 Respiratory 16 Rate Blood Pressure 140/90 tremulous agitated ASSESSMENT AND PLAN: pt to be admitted for alcohol and heroin and use disorders: alcohol and heroin detox protocols
[2019-02-28] MEDS ORDERED: METHADONE HCL 10 MG TABLET (FOR DETOX USE ONLY) PO ONE (18:15)
[2019-02-28] MEDS: NICOTINE 21 MG/24 HOURS TOPICAL PATCH TD SCH (19:01)
[2019-02-28] MEDS: LIDOCAINE 5% TOPICAL PATCH TP SCH (19:03)
[2019-02-28] MEDS: LIDOCAINE PATCH REMOVAL MC SCH (23:57)
[2019-02-28] MEDS: THIAMINE HCL 100 MG TABLET (FP) PO SCH (23:57)
[2019-02-28] MEDS: diazePAM 5 MG TABLET PO SCH (23:57)
[2019-03-01] MEDS: diazePAM 5 MG TABLET PO SCH ×3 (06:47→23:48)
--- NOTE | 2019-03-01 09:29 | CONSULT ---
[facility] Psychiatric Consult - Data Date of interview: 03/01/19 Admission source: Self-refeered Identifying data: MR Spears is a 38 years old single male, unemployed with no source of income, homeless seeking detox treatment for alcohol, oipiod, cocaine, benzodiazepine and phencyclidine Substance Abuse History: Reports history of alcohol, heroin cocaine, klonopin and pcp use Medical History: Significant for history of treatment for hepatitis C and withdrawal-related seizures and tonsillectomy. Smokes cigarete 1.5 ppd Psychiatric History: Patient is known to this facility from multiple previous admissions. Historical narrative remains consistent. He reports that his first psychiatric contact occurred during childhood (around age 6-7 due to behavioral disturbances. He was diagnosed with ADHD and treated with psychostimulant medications. Later his diagnosis was revised to Bipolar Disorder. Reports multiple previous psychiatric hospitalizations to various institutions including [facility], [facility] and most recently in [address]. Patient is known for his chronic non-adherence to psychiatric aftercare (clinic visits & medications). Reports being prescribed Seroquel 400 mg/bid and Remeron 15 mg/hs by his primary care physician. Claims he has an appointment to start seeing a psychiarist at [facility]. External medication history from [facility] shows scripts for 30 days supply of these medications filled on 02/23/19. Patient denies previou suicide attempts. At present, denies experiencing psychotic, manic symptoms, S/H ideations. However, reports feeling depressed, irritable and sleeping poorly Physical/Sexual Abuse/Trauma History: Denies history of emotional, physical or sexual abuse as well as DV relationship. Additional Comment: Reports history of previous arrests including felony convictions. He is unwilling to provide details Mental Status Exam - Mental Status Exam Alert and Oriented to: Time, Place, Person Cognitive Function: Fair Patient Appearance: Well Groomed Mood: Depressed, Irritable Patient Behavior: Cooperative Speech Pattern: Clear Voice Loudness: Normal Thought Process: Intact, Goal Oriented Thought Disorder: Not Present Hallucinations: Denies Suicidal Ideation: Denies Homicidal Ideation: Denies Insight/Judgement: Poor Sleep: Poorly Appetite: Good Muscle strength/Tone: Normal Gait/Station: Normal Psychiatric Findings - Problem List ([place] 1, 2,3) (1) Bipolar disorder Current Visit: Yes Status: Chronic (2) Substance induced mood disorder Current Visit: Yes Status: Acute (3) Substance-induced sleep disorder Current Visit: Yes Status: Acute (4) Alcohol dependence with uncomplicated withdrawal Current Visit: No Status: Acute (5) Sedative, hypnotic or anxiolytic dependence with withdrawal, uncomplicated Current Visit: No Status: Acute (6) Cocaine dependence Current Visit: No Status: Acute Qualifiers: Substance use status: uncomplicated Qualified Code(s): F14.20 - Cocaine dependence, uncomplicated (7) Phencyclidine abuse Current Visit: Yes Status: Acute (8) Nicotine dependence Current Visit: No Status: Chronic Qualifiers: Nicotine product type: cigarettes Substance use status: in withdrawal Qualified Code(s): F17.213 - Nicotine dependence, cigarettes, with withdrawal (9) Chronic back pain Current Visit: No Status: Chronic Qualifiers: Back pain location: low back pain Back pain laterality: unspecified Sciatica presence: without sciatica Qualified Code(s): M54.5 - Low back pain; G89.29 - Other chronic pain (10) Hepatitis C Current Visit: No Status: Resolved Qualifiers: Viral hepatitis chronicity: chronic Hepatic coma status: without hepatic coma Qualified Code(s): B18.2 - Chronic viral hepatitis C Comment: completed treatment - Initial Treatment Plan Initial Treatment Plan: 1) Continue Seroquel 400 mg po BID and Remeron 15 mg po HS. 2) Continue inpatient detoxification
[2019-03-01] MEDS ORDERED: METHADONE HCL 10 MG TABLET (FOR DETOX USE ONLY) ONE (09:47)
[2019-03-01] MEDS ORDERED: METHADONE HCL 5 MG TABLET (FOR DETOX USE ONLY) ONE (09:48)
--- NOTE | 2019-03-01 09:54 | PN ---
[facility] CIWA - CIWA Score Nausea/Vomitin-Mild Nausea/No Vomiting Muscle Tremors: 2 Anxiety: 3 Agitation: 3 Paroxysmal Sweats: 1-Minimal Palms Moist Orientation: 0-Oriented Tacttile Disturbances: 1-Very Mild Itch/Numbness Auditory Disturbances: 0-None Visual Disturbances: 0-None Headache: 2-Mild CIWA-Ar Total Score: 13 [facility] COWS - Scale Resting Pulse: 0= [place] 80 or Below Sweatin= Chills/Flushing Restless Observation: 1= Difficult to Sit Still Pupil Size: 1= Pupils >than Normal Bone or Joint Aches: 1= Mild Discomfort Runny Nose/ Eye Tearin= Nasal Congestion GI Upset > 30mins: 1= Stomach Cramp Tremor Observation of Outstretched Hands: 2= Slight Tremor Visible Yawning Observation: 1= 1-2x During Session Anxiety or Irritability: 2=Irritable/Anxious Goose Flesh Skin: 0=Smooth Skin COWS Score: 11 [facility] Progress Note (SOAP) Subjective: alert,irritable,anxious,interrupted sleep,tremor,pain in the body and back Objective: 03/01/19 09:53 Vital Signs Temperature 97.8 F 03/01/19 09:33 Pulse Rate 65 03/01/19 09:33 Respiratory Rate 18 03/01/19 09:33 Blood Pressure 137/93 03/01/19 09:33 O2 Sat by Pulse Oximetry (%) 03/01/19 09:53 labs pending Assessment: 03/01/19 09:54 withdrawal symptom Plan: continue detox methadone and valium regimen
[2019-03-01] MEDS ORDERED: METHADONE (DETOX) 20 MG, METHADONE (DETOX) 5 MG PO ONE (10:00)
[2019-03-01] MEDS: PRENATAL VITAMINS W/ FOLIC ACID TABLET (FP) PO SCH (10:27)
[2019-03-01] MEDS: QUEtiapine FUMARATE 400 MG TABLET PO SCH ×2 (10:35→22:26)
--- NOTE | 2019-03-01 10:38 | PN ---
[facility] Progress Note Note: history of low back pain,on neurontin 400 mgs po bid,ordered
[2019-03-01] MEDS ORDERED: QUEtiapine FUMARATE 400 MG TABLET PO ONE (11:09)
[2019-03-01] MEDS: GABAPENTIN 400 MG CAPSULE (FP) PO SCH ×2 (11:33→22:26)
[2019-03-01] MEDS: NICOTINE 21 MG/24 HOURS TOPICAL PATCH TD SCH (12:16)
[2019-03-01] MEDS: LIDOCAINE 5% TOPICAL PATCH TP SCH (12:17)
[2019-03-01 12:26] LABS: HEMATOCRIT 40.2 % (35.4-49); HEMOGLOBIN 13.3 GM/dL (11.7-16.9); MCH 28.5 pg (25.7-33.7); MEAN CELL VOLUME 86.4 fl (80-96); MEAN PLT VOLUME 8.7 fl (7.5-11.1); PLATELET COUNT 234 K/MM3 (134-434); RBC 4.65 M/mm3 (4.00-5.60); WHITE BLOOD COUNT 6.2 K/mm3 (4.0-10.0)
[2019-03-01 12:42] LABS: ALBUMIN 3.2 g/dl (3.4-5.0); BILIRUBIN,TOTAL 0.3 mg/dL (0.2-1); BLOOD UREA NITROGEN 13.4 mg/dL (7-18); CREATININE 0.8 mg/dL (0.55-1.3); POTASSIUM 4.2 mmol/L (3.5-5.1); TOT PROT 5.8 g/dl (6.4-8.2)
[2019-03-01] MEDS ORDERED: MIRTAZAPINE 15 MG TABLET (FP) PO SCH (22:00)
[2019-03-01] MEDS: THIAMINE HCL 100 MG TABLET (FP) PO SCH (22:26)
[2019-03-01] MEDS: LIDOCAINE PATCH REMOVAL MC SCH (22:27)
[2019-03-02] MEDS ORDERED: diazePAM 5 MG TABLET PO SCH (06:00)
[2019-03-02] MEDS: PRENATAL VITAMINS W/ FOLIC ACID TABLET (FP) PO SCH (09:15)
[2019-03-02] MEDS: QUEtiapine FUMARATE 400 MG TABLET PO SCH (09:15)
[2019-03-02] MEDS: GABAPENTIN 400 MG CAPSULE (FP) PO SCH (09:15)
[2019-03-02] MEDS: NICOTINE 21 MG/24 HOURS TOPICAL PATCH TD SCH (09:18)
[2019-03-02] MEDS: LIDOCAINE 5% TOPICAL PATCH TP SCH (09:18)
[2019-03-02 09:24] VITALS: BP 154/82; PULSE 90; TEMP 96.1
--- NOTE | 2019-03-02 09:28 | PN ---
[facility] CIWA - CIWA Score Nausea/Vomitin Muscle Tremors: 2 Anxiety: 2 Agitation: 2 Paroxysmal Sweats: No Perspiration Orientation: 0-Oriented Tacttile Disturbances: 1-Very Mild Itch/Numbness Auditory Disturbances: 0-None Visual Disturbances: 0-None Headache: 1-Very Mild CIWA-Ar Total Score: 10 [facility] COWS - Scale Resting Pulse: 1= [place] 81-100 Sweatin= No chills or Flushing Restless Observation: 1= Difficult to Sit Still Pupil Size: 1= Pupils >than Normal Bone or Joint Aches: 1= Mild Discomfort Runny Nose/ Eye Tearin= Nasal Congestion GI Upset > 30mins: 1= Stomach Cramp Tremor Observation of Outstretched Hands: 1= Tremor [place], Not Seen Yawning Observation: 1= 1-2x During Session Anxiety or Irritability: 2=Irritable/Anxious Goose Flesh Skin: 0=Smooth Skin COWS Score: 10 [facility] Progress Note (SOAP) Subjective: alert,irritable,anxious,interrupted sleep,tremor,pain in the body and back Objective: 03/02/19 09:26 Vital Signs Temperature 96.1 F L 03/02/19 09:23 Pulse Rate 90 03/02/19 09:23 Respiratory Rate 18 03/02/19 09:23 Blood Pressure 154/82 03/02/19 09:23 O2 Sat by Pulse Oximetry (%) 03/02/19 09:26 Laboratory Last Values WBC 6.2 K/mm3 (4.0-10.0) 03/01/19 09:00 RBC 4.65 M/mm3 (4.00-5.60) 03/01/19 09:00 Hgb 13.3 GM/dL (11.7-16.9) 03/01/19 09:00 Hct 40.2 % (35.4-49) 03/01/19 09:00 MCV 86.4 fl (80-96) 03/01/19 09:00 MCH 28.5 pg (25.7-33.7) 03/01/19 09:00 MCHC 33.0 g/dl (32.0-35.9) 03/01/19 09:00 RDW 14.0 % (11.9-15.9) 03/01/19 09:00 Plt Count 234 K/MM3 (134-434) 03/01/19 09:00 MPV 8.7 fl (7.5-11.1) 03/01/19 09:00 Sodium 142 mmol/L (136-145) 03/01/19 09:00 Potassium 4.2 mmol/L (3.5-5.1) 03/01/19 09:00 Chloride 109 mmol/L (98-107) H 03/01/19 09:00 Carbon Dioxide 28 mmol/L (21-32) 03/01/19 09:00 Anion Gap 6 MMOL/L (8-16) L 03/01/19 09:00 BUN 13.4 mg/dL (7-18) 03/01/19 09:00 Creatinine 0.8 mg/dL (0.55-1.3) 03/01/19 09:00 Est GFR (CKD-EPI)AfAm 129.51 03/01/19 09:00 Est GFR (CKD-EPI)NonAf 111.74 03/01/19 09:00 Random Glucose 79 mg/dL (74-106) 03/01/19 09:00 Calcium 9.0 mg/dL (8.5-10.1) 03/01/19 09:00 Total Bilirubin 0.3 mg/dL (0.2-1) 03/01/19 09:00 AST 13 U/L (15-37) L 03/01/19 09:00 ALT 15 U/L (13-61) 03/01/19 09:00 Alkaline Phosphatase 68 U/L (45-117) 03/01/19 09:00 Total Protein 5.8 g/dl (6.4-8.2) L 03/01/19 09:00 Albumin 3.2 g/dl (3.4-5.0) L 03/01/19 09:00 RPR Titer Nonreactive (NONREACTIVE) 03/01/19 09:00 Assessment: 03/02/19 09:27 withdrawal symptom Plan: continue detox methadone and valium regimen
--- NOTE | 2019-03-02 09:30 | PN ---
[facility] Progress Note Note: patient did not want to complete treatment,all attempts to convince patient to stay with no avail, high risks of relapsing is high,patient understood,signed release AMA,advise to call 911 if not feeling well
--- NOTE | 2019-03-02 09:35 | DS ---
[facility] Detox Discharge Summary Admission Date: 02/28/19 Discharge Date: 03/02/19 - History Present History: Alcohol Dependence, Cannabis Dependence, Opioid Dependence Additional Comments: patient signed release AMA,has all medications Pertinent Past History: adhd bipolar disorder chronic low back pain - Physical Exam Results Vital Signs: Vital Signs Temperature 96.1 F L 03/02/19 09:23 Pulse Rate 90 03/02/19 09:23 Respiratory Rate 18 03/02/19 09:23 Blood Pressure 154/82 03/02/19 09:23 O2 Sat by Pulse Oximetry (%) Pertinent Admission Physical Exam Findings: withdrawal signs and symptom Laboratory Last Values WBC 6.2 K/mm3 (4.0-10.0) 03/01/19 09:00 RBC 4.65 M/mm3 (4.00-5.60) 03/01/19 09:00 Hgb 13.3 GM/dL (11.7-16.9) 03/01/19 09:00 Hct 40.2 % (35.4-49) 03/01/19 09:00 MCV 86.4 fl (80-96) 03/01/19 09:00 MCH 28.5 pg (25.7-33.7) 03/01/19 09:00 MCHC 33.0 g/dl (32.0-35.9) 03/01/19 09:00 RDW 14.0 % (11.9-15.9) 03/01/19 09:00 Plt Count 234 K/MM3 (134-434) 03/01/19 09:00 MPV 8.7 fl (7.5-11.1) 03/01/19 09:00 Sodium 142 mmol/L (136-145) 03/01/19 09:00 Potassium 4.2 mmol/L (3.5-5.1) 03/01/19 09:00 Chloride 109 mmol/L (98-107) H 03/01/19 09:00 Carbon Dioxide 28 mmol/L (21-32) 03/01/19 09:00 Anion Gap 6 MMOL/L (8-16) L 03/01/19 09:00 BUN 13.4 mg/dL (7-18) 03/01/19 09:00 Creatinine 0.8 mg/dL (0.55-1.3) 03/01/19 09:00 Est GFR (CKD-EPI)AfAm 129.51 03/01/19 09:00 Est GFR (CKD-EPI)NonAf 111.74 03/01/19 09:00 Random Glucose 79 mg/dL (74-106) 03/01/19 09:00 Calcium 9.0 mg/dL (8.5-10.1) 03/01/19 09:00 Total Bilirubin 0.3 mg/dL (0.2-1) 03/01/19 09:00 AST 13 U/L (15-37) L 03/01/19 09:00 ALT 15 U/L (13-61) 03/01/19 09:00 Alkaline Phosphatase 68 U/L (45-117) 03/01/19 09:00 Total Protein 5.8 g/dl (6.4-8.2) L 03/01/19 09:00 Albumin 3.2 g/dl (3.4-5.0) L 03/01/19 09:00 RPR Titer Nonreactive (NONREACTIVE) 03/01/19 09:00 Vital Signs Temperature 96.1 F L 03/02/19 09:23 Pulse Rate 90 03/02/19 09:23 Respiratory Rate 18 03/02/19 09:23 Blood Pressure 154/82 03/02/19 09:23 O2 Sat by Pulse Oximetry (%) - Medication Discharge Medications: Ambulatory Orders Mirtazapine 15 mg PO HS 12/23/18 Quetiapine Fumarate [Seroquel -] 400 mg PO BID 12/23/18 - Diagnosis (1) Opioid dependence with withdrawal Current Visit: No Status: Acute (2) Alcohol dependence with uncomplicated withdrawal Current Visit: No Status: Acute (3) ADHD (attention deficit hyperactivity disorder) Current Visit: No Status: Chronic Qualifiers: Attention deficit-hyperactivity disorder type: unspecified Qualified Code(s ): F90.9 - Attention-deficit hyperactivity disorder, unspecified type (4) Bipolar disorder Current Visit: No Status: Chronic Qualifiers: Active/Remission status: remission status unspecified Qualified Code(s): F31.9 - Bipolar disorder, unspecified (5) Cannabis dependence Current Visit: No Status: Chronic (6) Nicotine dependence Current Visit: No Status: Chronic Qualifiers: Nicotine product type: cigarettes Substance use status: in withdrawal Qualified Code(s): F17.213 - Nicotine dependence, cigarettes, with withdrawal (7) Hepatitis C Current Visit: No Status: Resolved Qualifiers: Viral hepatitis chronicity: chronic Hepatic coma status: without hepatic coma Qualified Code(s): B18.2 - Chronic viral hepatitis C (8) Chronic low back pain Current Visit: Yes Status: Acute - AMA Did Patient Leave Against Medical Advice: Yes
[2019-03-02] MEDS ORDERED: METHADONE HCL 10 MG TABLET (FOR DETOX USE ONLY) PO ONE (10:00)
[2019-03-03] MEDS ORDERED: diazePAM 5 MG TABLET PO ONE (06:00)
[2019-03-03] MEDS ORDERED: METHADONE (DETOX) 10 MG, METHADONE (DETOX) 5 MG PO ONE (10:00)
[2019-03-04] MEDS ORDERED: METHADONE HCL 10 MG TABLET (FOR DETOX USE ONLY) PO ONE (10:00)
[2019-03-05] MEDS ORDERED: METHADONE HCL 5 MG TABLET (FOR DETOX USE ONLY) PO ONE (06:00)
== END 2019-03-02 09:28 | disposition left against medical advice (07) | DRG 770 ==
LOC: YASAS 11:53 → Y6N 17:47
PROVIDERS: ADMIT Surgery; ATTEND Surgery
PROC: HZ2ZZZZ Detoxification Services for Substance Abuse Treatment (ICD-10-PCS; principal; 2019-02-28)
DX: F11.23 Opioid dependence with withdrawal (principal); F10.230 Alcohol dependence with withdrawal, uncomplicated; F13.230 Sedative, hypnotic or anxiolytic dependence with withdrawal, uncomplicated; F14.20 Cocaine dependence, uncomplicated; F12.20 Cannabis dependence, uncomplicated; F16.10 Hallucinogen abuse, uncomplicated; F90.9 Attention-deficit hyperactivity disorder, unspecified type; F31.9 Bipolar disorder, unspecified; F19.24 Other psychoactive substance dependence with psychoactive substance-induced mood disorder; F19.282 Other psychoactive substance dependence with psychoactive substance-induced sleep disorder; M54.5 Low back pain; G89.29 Other chronic pain; B18.2 Chronic viral hepatitis C; Z91.013 Allergy to seafood; Z91.038 Other insect allergy status; Z86.69 Personal history of other diseases of the nervous system and sense organs; Z91.5 Personal history of self-harm
CPT/HCPCS: 36415; 80053; 85027; 86593

== ENCOUNTER 2019-06-28 18:47 | Emergency (ER) | payer OTHER ==
--- NOTE | 2019-06-28 19:04 | PDOC ---
History of Present Illness - General Chief Complaint: Blood Pressure Problem Stated Complaint: LOW BLOOD PRESSURE Time Seen by Provider: 06/28/19 19:04 - History of Present Illness Initial Comments: 06/28/19 19:14 38 year old man with a history of bipolar, adhd heroin (currently on suboxone), nicotine, cocaine and alcohol abuse, prior seizure 1 year ago, who presents from [facility] after he was seeking detox for alcohol. Last drink was at 1100 today, he drank 3x 24oz of beer. He normally drinks 3-4x 24oz of beer and a pint of liquor a day. He reports that he takes 0.2mg of clonidine TID but took two extra doses today because he was stressed. He denies any cough, congestion, fever,s chest pain, shortness of breath, abdominal pain, n/v/d/c. He has no other complaints and wants to go to detox. ROS GENERAL/CONSTITUTIONAL: No fever or chills. No weakness. HEAD, EYES, EARS, NOSE AND THROAT: No sore throat. CARDIOVASCULAR: No chest pain or shortness of breath RESPIRATORY: No cough, wheezing, or hemoptysis. GASTROINTESTINAL: No nausea, vomiting, diarrhea or constipation. GENITOURINARY: No dysuria, frequency, or change in urination. MUSCULOSKELETAL: No joint or muscle swelling or pain. No neck or back pain. SKIN: No rash NEUROLOGIC: No headache, vertigo, loss of consciousness, or change in strength/ sensation. ENDOCRINE: No increased thirst. No abnormal weight change HEMATOLOGIC/LYMPHATIC: No anemia, easy bleeding, or history of blood clots. ALLERGIC/IMMUNOLOGIC: No hives or skin allergy. PE GENERAL: Awake, alert, and fully oriented, in no acute distress HEAD: No signs of trauma, normocephalic, atraumatic EYES: EOMI, sclera anicteric, conjunctiva clear ENT: oropharynx clear without exudates. Moist mucosa. No tongue tremor NECK: Normal ROM, supple LUNGS: No distress, speaks full sentences, clear to auscultation bilaterally HEART: Regular rate and rhythm, normal S1 and S2, no murmurs, rubs or gallops, peripheral pulses normal and equal bilaterally. ABDOMEN: Soft, nontenderNo guarding, no rebound. No masses EXTREMITIES : Normal inspection, Normal range of motion, no edema. No clubbing or cyanosis. No hand tremor NEUROLOGICAL: Cranial nerves II through XII grossly intact. Normal speech, normal gait, no focal sensorimotor deficits SKIN: Warm, Dry, normal turgor, no rashes or lesions noted MDM ED Course: liekly due to clonidine abuse Patient denies any signs or symptoms of infection and does not have any current symptoms of withdrawal EKG: sinus jacob 47bpm, no interval abnormalities, narrow QRS, ST and T wave segments and morphology normal. Joy Dickerson, PGY2 Emergency Medicine Past History - Past Medical History Allergies/Adverse Reactions: Allergies Allergy/AdvReac Type Severity Reaction Status Date / Time venom-honey bee Allergy Severe Difficulty Verified 06/28/19 14:59 [bee venom (honey bee)] Breathing Fish Containing Products Allergy Mild Difficulty Verified 06/28/19 14:59 Breathing bee stings Allergy Severe Difficulty Uncoded 06/28/19 14:59 Breathing Home Medications: Ambulatory Orders Mirtazapine 15 mg PO HS 12/23/18 Quetiapine Fumarate [Seroquel -] 400 mg PO BID 12/23/18 Gabapentin [Neurontin -] 400 mg PO BID capsule 03/02/19 Sulfamethoxazole/Trimethoprim [Bactrim Ds -] 1 tab PO BID 7 Days #14 tablet 06/08 Clonidine HCl 0.2 mg PO TID 06/28/19 Fluoxetine HCl [Prozac -] 20 mg PO DAILY 06/28/19 Anemia: No Asthma: No Cancer: No Cardiac Disorders: No CVA: No COPD: No CHF: No Dementia: No Diabetes: No GI Disorders: Yes Disorders: No HTN: No Hypercholesterolemia: No Kidney Stones: No Liver Disease: Yes (Hep C and treated ) Seizures: No Thyroid Disease: No - Surgical History Abdominal Surgery: No Appendectomy: No Cardiac Surgery: No Cholecystectomy: No Lung Surgery: No Neurologic Surgery: No Orthopedic Surgery: No - Reproductive History Testicular Surgery: No - Psycho Social/Smoking Cessation Hx Smoking History: Current every day smoker Have you smoked in the past 12 months: Yes Number of Cigarettes Smoked Daily: 20 Cigars Per Day: 0 'Breaking Loose' booklet given: 06/28/19 Hx Alcohol Use: Yes Drug/Substance Use Hx: Yes Substance Use Type: Alcohol, Cocaine, Heroin Hx Substance Use Treatment: No (Detox, rehab, Past Suboxone; [place] on Methadone) Vital Signs - Vital Signs #1 Time: 19:15 Blood Pressure: 90/54 BP Location: Left Arm Blood Pressure Position: Sitting Pulse Rate: 50 ED Treatment Course - LABORATORY CBC & Chemistry Diagram: 06/28/19 20:40 06/28/19 20:40 Discharge - Discharge Information Problems reviewed: Yes Clinical Impression/Diagnosis: Hypotension Condition: Stable Disposition: HOME - Admission No - Follow up/Referral - Patient Discharge Instructions Patient Printed Discharge Instructions: DI for Hypotension Additional Instructions: You were seen in the ER for complaints of low pressure. You got fluids and your blood pressure improved You are ready to go back to Detox. Please only take your prescribed clonidine dose Return to the ER if you develop worsening low blood pressure, lightheadedness, chest pain, nausea, vomiting or fevers. - Post Discharge Activity
[2019-06-28 19:09] VITALS: BMI 23.6
[2019-06-28] MEDS ORDERED: SODIUM CHLORIDE 1,000 ML IV SCH (19:30)
--- NOTE | 2019-06-28 20:03 | PDOC ---
Attending Attestation - Resident Resident Name: Joy Dickerson - ED Attending Attestation I have performed the following: I have examined & evaluated the patient, The case was reviewed & discussed with the resident, I agree w/resident's findings & plan - HPI HPI: 06/28/19 21:27 see resident hpi - Physicial Exam PE: 06/28/19 21:27 agree with resident exam - Medical Decision Making 06/28/19 21:28 38-year-old male sent from detox facility due to to low blood pressure after taking an extra clonidine because he felt nervous Patient has no additional complaints Plan for labs, IV fluids and clearance for return to detox facility
[2019-06-28 21:03] LABS: HEMATOCRIT 38.7 % (35.4-49); HEMOGLOBIN 12.5 GM/dL (11.7-16.9); MCH 26.8 pg (25.7-33.7); MCHC 32.2 g/dl (32.0-35.9); MEAN CELL VOLUME 83.2 fl (80-96); MEAN PLT VOLUME 8.6 fl (7.5-11.1); PLATELET COUNT 264 K/MM3 (134-434); RBC 4.65 M/mm3 (4.00-5.60); RDW 15.9 % (11.9-15.9); WHITE BLOOD COUNT 6.5 K/mm3 (4.0-10.0)
[2019-06-28 21:48] LABS: BLOOD UREA NITROGEN 12.6 mg/dL (7-18); CALCIUM 8.9 mg/dL (8.5-10.1); CREATININE 1.2 mg/dL (0.55-1.3)
[2019-06-28 21:58] LABS: PHOSPHOROUS 5.8 mg/dL (2.5-4.9)
[2019-06-29 03:46] VITALS: BP 96/54; PULSE 51; TEMP 98
--- NOTE | 2019-06-29 11:51 | EKG ---
Test Reason : Blood Pressure : / mmHG Vent. Rate : 047 BPM Atrial Rate : 047 BPM P-R Int : 180 ms QRS Dur : 084 ms QT Int : 526 ms P-R-T Axes : 057 044 051 degrees QTc Int : 465 ms SINUS BRADYCARDIA OTHERWISE NORMAL ECG WHEN COMPARED WITH ECG OF 28-JUN-2019 18:49, NO SIGNIFICANT CHANGE WAS FOUND Confirmed by JOSE BOURNE MD ([id number]) on 06/29/2019 11:51:41 AM Referred By: Confirmed By:JOSE BOURNE MD
== END 2019-06-28 23:17 | disposition home or self-care (01) ==
LOC: JER 18:47
DX: T46.5X1A Poisoning by other antihypertensive drugs, accidental (unintentional), initial encounter (principal); I95.2 Hypotension due to drugs; Y92.89 Other specified places as the place of occurrence of the external cause; F10.10 Alcohol abuse, uncomplicated; F11.20 Opioid dependence, uncomplicated; Z86.19 Personal history of other infectious and parasitic diseases; Z91.013 Allergy to seafood; Z91.030 Bee allergy status; F14.10 Cocaine abuse, uncomplicated; F31.9 Bipolar disorder, unspecified; F90.9 Attention-deficit hyperactivity disorder, unspecified type; F17.210 Nicotine dependence, cigarettes, uncomplicated
CPT/HCPCS: 36415; 80048; 83735; 84100; 84443; 85027; 93005; 93010; 99285-25; J7030

== ENCOUNTER 2019-06-29 09:27 | Inpatient (IN) | payer OTHER ==
[2019-06-29 09:39] VITALS: BMI 23.9
--- NOTE | 2019-06-29 10:55 | HP ---
CIWA Score Nausea/Vomitin Muscle Tremors: 3 Anxiety: 3 Agitation: 3 Paroxysmal Sweats: 1-Minimal Palms Moist Orientation: 0-Oriented Tacttile Disturbances: 1-Very Mild Itch/Numbness Auditory Disturbances: 0-None Visual Disturbances: 0-None Headache: 2-Mild CIWA-Ar Total Score: 15 - Admission Criteria OASAS Guidelines: Admission for Medically Managed Detox: Requires at least one of the followin. CIWA greater than 12 2. Seizures within the past 24 hours 3. Delirium tremens within the past 24 hours 4. Hallucinations within the past 24 hours 5. Acute intervention needed for co occurring medical disorder 6. Acute intervention needed for co occurring psychiatric disorder 7. Severe withdrawal that cannot be handled at a lower level of care (continued vomiting, continued diarrhea, abnormal vital signs) requiring intravenous medication and/or fluids 8. 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 Hepatobiliary: Yes: Hepatitis C (treated) Psych: Yes: Bipolar, Schizophrenia - Smoking History Smoking history: Current every day smoker Have you smoked in the past 12 months: Yes Aproximately how many cigarettes per day: 20 - Alcohol/Substance Use Hx Alcohol Use: Yes History of Substance Use: reports: Heroin, Tranquilizers - Social History Usual Living Arrangement: Yes: Other (homeless) Occupation: unemployed History of Recent Travel: No Admission ROS [facility]HS - HPI Chief Complaint: i nnee help to stop drinking alcohol,xanax,klonopin,heroin abused,mmtp 100 mgs/ day seeking help bradycardia seen and medically clear to return form er [facility] for detox weight loss syncope denied seizure hepatitis c treated bipolar disorder,schizophrenia longest sobriety 10 years Allergies/Adverse Reactions: Allergies Allergy/AdvReac Type Severity Reaction Status Date / Time venom-honey bee Allergy Severe Difficulty Verified 06/29/19 09:32 [bee venom (honey bee)] Breathing Fish Containing Products Allergy Mild Difficulty Verified 06/29/19 09:32 Breathing bee stings Allergy Severe Difficulty Uncoded 06/29/19 09:32 Breathing History of Present Illness: shaquille see chief complaint Exam Limitations: No Limitations - Ebola screening Have you traveled outside of the country in the last 21 days: No Have you had contact with anyone from an Ebola affected area: No - Review of Systems Constitutional: Loss of Appetite, Malaise, Night Sweats, Changes in sleep, Weakness, Unintentional Wgt. Loss EENT: reports: Tearing, Nose Congestion Respiratory: reports: No Symptoms reported Cardiac: reports: Other (bradycardia) GI: reports: Nausea, Poor Appetite, Abdominal cramping : reports: No Symptoms Reported Musculoskeletal: reports: Back Pain, Muscle Pain Integumentary: reports: Dryness Neuro: reports: Tremors Endocrine: reports: No Symptoms Reported Hematology: reports: No Symptoms Reported Psychiatric: reports: No Sypmtoms Reported, Judgement Intact, Mood/Affect Appropiate, Orientated x3, Agitated, Anxious, Depressed, other (bipolar disorder ,achizophrenia) Patient History - Patient Medical History Hx Anemia: No Hx Asthma: No Hx Chronic Obstructive Pulmonary Disease (COPD): No Hx Cancer: No Hx Cardiac Disorders: No Hx Congestive Heart Failure: No Hx Hypertension: No Hx Hypercholesterolemia: No Hx Pacemaker: No HX Cerebrovascular Accident: No Hx Seizures: No Hx Dementia: No Hx Diabetes: No Hx Gastrointestinal Disorders: Yes Hx Liver Disease: Yes (Hep C and treated ) Hx Genitourinary Disorders: No Hx Sexually Transmitted Disorders: No Hx Renal Disease (ESRD): No Hx Thyroid Disease: No Hx Human Immunodeficiency Virus (HIV): No (negative last 04/08 negative) Hx Hepatitis C: Yes (treated - undetectable vl) Hx Depression: Yes Hx Suicide Attempt: Yes ( pt would not elaborate) Hx Bipolar Disorder: Yes (reports no psych tx in years/ adhd) Hx Schizophrenia: No Other Medical History: no suicidal,no homicidal,low back ,neuropathy - Patient Surgical History Past Surgical History: Yes Hx Neurologic Surgery: No Hx Cataract Extraction: No Hx Cardiac Surgery: No Hx Lung Surgery: No Hx Breast Surgery: No Hx Breast Biopsy: No Hx Abdominal Surgery: No Hx Appendectomy: No Hx Cholecystectomy: No Hx Genitourinary Surgery: No Hx Section: No Hx Orthopedic Surgery: No Other Surgical History: Sx for abscess Drainage + TISSUE REMOVAL R hand in 04/04 , Tonsillectomy 7y Anesthesia Reaction: No - PPD History Previous Implant?: Yes Documented Results: Negative w/o proof Implanted On Prior [facility] Admission?: Yes Date: 07/09/18 Results: 0 mm PPD to be Administered?: No - Smoking Cessation Smoking history: Current every day smoker Have you smoked in the past 12 months: Yes Aproximately how many cigarettes per day: 20 Cigars Per Day: 0 Hx Chewing Tobacco Use: No Initiated information on smoking cessation: Yes 'Breaking Loose' booklet given: 06/29/19 - Substance & Tx. History Hx Alcohol Use: Yes Hx Substance Use: Yes Substance Use Type: Alcohol, Heroin, Tranquilizers Hx Substance Use Treatment: Yes (02/28/19 to 03/02/19) - Substances abused Heroin Substance route: Injection Frequency: 3-6 times per week Amount used: 10-15 bags Age of first use: 16 Date of last use: 06/27/19 Cocaine Substance route: Injection Frequency: Daily Amount used: $60 Age of first use: 13 Date of last use: 06/28/19 Benzodiazepine (Klonopin) Substance route: Oral Frequency: 3-6 times per week Amount used: 2-4mg Age of first use: 13 Date of last use: 06/26/19 Alcohol Substance route: Oral Frequency: Daily Amount used: 3-4 24oz BEERS and 1/2 pint vodka Age of first use: 9 Date of last use: 06/28/19 PCP Substance route: Smoking Frequency: 1-3 times last 30 days Amount used: 1 JOINT Age of first use: 16 Date of last use: 06/14/19 Marijuana/Hashish Substance route: Smoking Frequency: 3-6 times per week Amount used: $20-$30 Age of first use: 10 Date of last use: 06/28/19 Admission Physical Exam BHS - Vital Signs Vital Signs: Vital Signs - 24 hr 06/29/19 09:30 Temperature 97.5 F L Pulse Rate 44 L Respiratory 20 Rate Blood Pressure 114/61 - Physical General Appearance: Yes: Moderate Distress, Tremorous, Irritable, Sweating, Anxious HEENTM: Yes: Normal ENT Inspection, [place], Pharynx Normal Respiratory: Yes: Lungs Clear, Normal Breath Sounds, No Respiratory Distress Neck: Yes: Within Normal Limits, Supple, Trachea in good position Breast: Yes: Within Normal Limits Cardiology: Yes: S1, S2, Bradycardia Abdominal: Yes: Within Normal Limits, Normal Bowel Sounds, Non Tender, Soft Genitourinary: Yes: Within Normal Limits Back: Yes: Muscle Spasm (low back pain for 2 years) Extremities: Yes: Within Normal Limits, Normal Capillary Refill, Normal Inspection, Normal Range of Motion 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, Fully Oriented, Alert, Motor Strength 5/5 Integumentary: Yes: Within Normal Limits, Dry - Diagnostic (1) Alcohol dependence with uncomplicated withdrawal Current Visit: Yes Status: Acute Comment: HR: 43 (2) Bradycardia Current Visit: No Status: Acute (3) Chronic low back pain Current Visit: No Status: Chronic Qualifiers: Back pain laterality: midline Sciatica presence: unspecified whether sciatica present Qualified Code(s): M54.5 - Low back pain; G89.29 - Other chronic pain (4) History of cocaine dependence Current Visit: Yes Status: Chronic (5) IVDU (intravenous drug user) Current Visit: No Status: Chronic (6) Methadone maintenance therapy patient Current Visit: Yes Status: Chronic (7) Nicotine dependence Current Visit: Yes Status: Chronic Qualifiers: Nicotine product type: cigarettes Substance use status: uncomplicated Qualified Code(s): F17.210 - Nicotine dependence, cigarettes, uncomplicated (8) Phencyclidine abuse Current Visit: No Status: Acute (9) Sedative, hypnotic or anxiolytic dependence with withdrawal, uncomplicated Current Visit: No Status: Acute (10) Hepatitis C Current Visit: No Status: Resolved Qualifiers: Viral hepatitis chronicity: chronic Hepatic coma status: without hepatic coma Qualified Code(s): B18.2 - Chronic viral hepatitis C Comment: completed treatment (11) Bipolar disorder Current Visit: Yes Status: Chronic (12) Schizophrenia Current Visit: Yes Status: Acute Cleared for Admission S - Detox or Rehab [facility] Level of Care: Medically Managed Detox Regimen/Protocol: Librium Breathalyzer - Breathalyzer Breathalyzer: 0 Urine Drug Screen - Test Device Lot number: [id number] Expiration date: 01/18/21 - Control Is test valid?: Yes - Results Drug screen NEGATIVE: No Urine drug screen results: RENAE-Cocaine, FEN-Fentanyl, MTD-Methadone Inpatient Rehab Admission - Rehab Decision to Admit Inpatient rehab admission?: No
[2019-06-29] MEDS ORDERED: MELATONIN 5 MG TABLETS PO PRN (11:23)
[2019-06-29] MEDS ORDERED: ACETAMINOPHEN 325 MG TABLET (FP) PO PRN ×2 (11:23)
[2019-06-29] MEDS ORDERED: BISMUTH SUBSALICYLATE 262 MG/15 ML BTL PO PRN (11:23)
[2019-06-29] MEDS ORDERED: MAGNESIUM CITRATE 300 ML BOTTLE PO PRN (11:23)
[2019-06-29] MEDS ORDERED: MAGNESIUM HYDROX 2400MG/30ML ORAL SUSPENSION 30 ML CUP PO PRN (11:23)
[2019-06-29] MEDS ORDERED: chlordiazePOXIDE HCL 25 MG CAPSULE PO PRN (11:23)
[2019-06-29] MEDS ORDERED: hydrOXYzine PAMOATE 25 MG CAPSULE (FP) PO PRN (11:23)
[2019-06-29] MEDS ORDERED: METHOCARBAMOL 500 MG TABLET PO PRN (11:23)
[2019-06-29] MEDS ORDERED: METHADONE HCL 10 MG TABLET PO ONE (11:30)
[2019-06-29] MEDS ORDERED: METHADONE 80 MG, METHADONE 20 MG PO ONE (11:45)
[2019-06-29] MEDS ORDERED: METHADONE HCL 10 MG TABLET ONE (11:53)
[2019-06-29] MEDS ORDERED: METHADONE HCL 40 MG DISPERSABLE TABLET ONE (11:54)
[2019-06-29] MEDS: LIDOCAINE 5% TOPICAL PATCH TP SCH (12:07)
[2019-06-29] MEDS: NICOTINE 21 MG/24 HOURS TOPICAL PATCH TD SCH (12:07)
--- NOTE | 2019-06-29 17:12 | CONSULT ---
[facility] Psychiatric Consult - Data Date of interview: 06/29/19 Admission source: [facility] Identifying data: Patient is a 38 year old single male, without children, unemployed, homeless, and is not currently receiving financial assistance. This is one of multiple admissions for patient. Patient admitted to for alcohol, cocaine and opiate dependence. Substance Abuse History: Smoking Cessation. Smoking history: Current every day smoker. Have you smoked in the past 12 months: Yes. Aproximately how many cigarettes per day: 20. Cigars Per Day: 0. Hx Chewing Tobacco Use: No. Initiated information on smoking cessation: Yes. 'Breaking Loose' booklet given : 06/29/19. - Substance & Tx. History. Hx Alcohol Use: Yes. Hx Substance Use : Yes. Substance Use Type: Alcohol, Heroin, Tranquilizers. Hx Substance Use Treatment: Yes (02/28/19 to 03/02/19). - Substances abused. Heroin. Substance route: Injection. Frequency: 3-6 times per week. Amount used: 10-15 bags. Age of first use: 16. Date of last use: 06/27/19. Cocaine. Substance route: Injection. Frequency: Daily. Amount used: $60. Age of first use: 13. Date of last use: 06/28/19. Benzodiazepine (Klonopin). Substance route: Oral. Frequency: 3-6 times per week. Amount used: 2-4mg. Age of first use: 13. Date of last use: 06/26/19. Alcohol. Substance route: Oral. Frequency: Daily. Amount used: 3-4 24oz BEERS and 1/2 pint vodka. Age of first use: 9. Date of last use: 06/28/19. PCP. Substance route: Smoking. Frequency: 1-3 times last 30 days. Amount used: 1 JOINT. Age of first use: 16. Date of last use: 06/14/19. Marijuana/Hashish. Substance route: Smoking. Frequency: 3-6 times per week. Amount used: $20-$30. Age of first use: 10. Date of last use: 06/28/19 Medical History: Significant for history of treatment for hepatitis C and withdrawal-related seizures and tonsillectomy. Psychiatric History: Patient's first psychiatric contact occured at 4 years of age which resulted in a diagnosis of ADHD and treatment with Ritalin. Mr. Spears's first psychiatric hospitalization occured in 1990 at [facility] in [place] after patient experienced mood instability, auditory hallucinations, and paranoid delusions. He was diagnosed with schizophrenia/ bipolar disorder and prescribed psychotropic medications. Mr. Spears reports additional psychiatric hospitalizations at [facility], most recently five months ago after having thoughts to hurt himself. Patient reports history of multiple suicide attempts ( self mutilation-cutting, overdose and jumping in front of a moving vehicle). Mr. Spears is provided with outpatient psychiatric care by Dr. Schulte at [facility] and reports being prescribed Prozac 20mg daily + Gabapentin 400mg BID + Mirtazapine 15mg HS + Seroquel 400mg BID + Clonidine 0.2mg BID. Pharmacy claims reviewed and medications verified. Patient reports medication compliance. At present patient denies auditory/visual hallucinations, paranoid delusions, and suicidal/ homicidal ideation. Physical/Sexual Abuse/Trauma History: denies. Mental Status Exam - Mental Status Exam Alert and Oriented to: Time, Place, Person Cognitive Function: Good Patient Appearance: Well Groomed Mood: Withdrawn Affect: Mood Congruent Patient Behavior: Appropriate, Cooperative Speech Pattern: Appropriate Voice Loudness: Normal Thought Process: Goal Oriented Thought Disorder: Not Present Hallucinations: Denies Suicidal Ideation: Denies Homicidal Ideation: Denies Insight/Judgement: Poor Sleep: Poorly Appetite: Fair Muscle strength/Tone: Normal Gait/Station: Normal Psychiatric Findings - Problem List ([place] 1, 2,3) (1) Alcohol dependence with uncomplicated withdrawal Status: Chronic Comment: HR: 43 (2) History of cocaine dependence Status: Chronic (3) Methadone maintenance therapy patient Status: Chronic (4) Nicotine dependence Status: Chronic Qualifiers: Nicotine product type: cigarettes Substance use status: uncomplicated Qualified Code(s): F17.210 - Nicotine dependence, cigarettes, uncomplicated (5) Substance-induced sleep disorder Status: Acute (6) Bipolar disorder Status: Chronic (7) Schizoaffective disorder Status: Suspected - Initial Treatment Plan Initial Treatment Plan: Psychoeducation provided. Detoxification in progress. Will order Prozac 20mg + Seroquel 400mg + Gabapentin 400mg BID +Remeron 15mg HS. Clonidine 0.2mg held due to risk of hypotensive episode when combined with librium. Benefits and side effects discussed.
[2019-06-29] MEDS: chlordiazePOXIDE HCL 25 MG CAPSULE PO SCH ×2 (17:29→22:10)
[2019-06-29] MEDS: MIRTAZAPINE 15 MG TABLET (FP) PO SCH (22:10)
[2019-06-29] MEDS: QUEtiapine FUMARATE 400 MG TABLET PO SCH (22:10)
[2019-06-29] MEDS: LIDOCAINE PATCH REMOVAL MC SCH (22:10)
[2019-06-29] MEDS: GABAPENTIN 400 MG CAPSULE (FP) PO SCH (22:10)
[2019-06-29] MEDS: THIAMINE HCL 100 MG TABLET (FP) PO SCH (22:11)
[2019-06-30] MEDS: MAG HYDROX/AL HYDROX/SIMETH 30 ML UNIT-DOSE CUP PO PRN ×2 (02:27→08:30)
[2019-06-30] MEDS ORDERED: METHADONE HCL 10 MG TABLET ONE (04:35)
[2019-06-30] MEDS ORDERED: METHADONE HCL 40 MG DISPERSABLE TABLET ONE (04:36)
[2019-06-30] MEDS: chlordiazePOXIDE HCL 25 MG CAPSULE PO SCH ×4 (05:30→23:22)
[2019-06-30] MEDS: METHADONE 80 MG, METHADONE 20 MG PO SCH (05:30)
[2019-06-30] MEDS ORDERED: METHADONE HCL 40 MG DISPERSABLE TABLET PO SCH (06:00)
[2019-06-30] MEDS: QUEtiapine FUMARATE 400 MG TABLET PO SCH ×2 (10:27→22:09)
[2019-06-30] MEDS: PRENATAL VITAMINS W/ FOLIC ACID TABLET (FP) PO SCH (10:27)
[2019-06-30] MEDS: LIDOCAINE 5% TOPICAL PATCH TP SCH (10:27)
[2019-06-30] MEDS: NICOTINE 21 MG/24 HOURS TOPICAL PATCH TD SCH (10:27)
[2019-06-30] MEDS: FLUoxetine HCL 20 MG CAPSULE (FP) PO SCH (10:27)
[2019-06-30] MEDS: GABAPENTIN 400 MG CAPSULE (FP) PO SCH ×2 (10:27→22:09)
[2019-06-30 10:48] LABS: URINE APPEARANCE CLEAR; URINE BILIRUBIN NEGATIVE (NEGATIVE); URINE COLOR YELLOW; URINE GLUCOSE (UA) NEGATIVE (NEGATIVE); URINE KETONE NEGATIVE (NEGATIVE); URINE LEUK ESTERASE NEGATIVE (NEGATIVE); URINE NITRITE NEGATIVE (NEGATIVE); URINE PROTEIN NEGATIVE (NEGATIVE); URINE UROBILINOGEN 0.2 mg/dL (0.2-1.0)
[2019-06-30] MEDS: IBUPROFEN 400 MG TABLET (FP) PO PRN (11:27)
--- NOTE | 2019-06-30 13:35 | PN ---
S CIWA - CIWA Score Nausea/Vomitin-Mild Nausea/No Vomiting Muscle Tremors: 2 Anxiety: 3 Agitation: 0-Normal Activity Paroxysmal Sweats: 2 Orientation: 1-Uncertain about Date Tacttile Disturbances: 2-Mild Itch/Numbness/Burn Auditory Disturbances: 0-None Visual Disturbances: 1-Very Mild Sensitivity Headache: 0-None Present CIWA-Ar Total Score: 12 BHS Progress Note (SOAP) Subjective: c/o of back pain, chills, interrupted sleep Objective: 06/30/19 13:34 Vital Signs Temperature 98 F 06/30/19 09:52 Pulse Rate 73 06/30/19 09:52 Respiratory Rate 18 06/30/19 09:52 Blood Pressure 104/63 06/30/19 09:52 O2 Sat by Pulse Oximetry (%) Laboratory Last Values Urine Color Yellow 06/30/19 07:45 Urine Appearance Clear 06/30/19 07:45 Urine pH 7.0 (5.0-8.0) D 06/30/19 07:45 Ur Specific [place] 1.008 (1.010-1.035) L 06/30/19 07:45 Urine Protein Negative (NEGATIVE) 06/30/19 07:45 Urine Glucose (UA) Negative (NEGATIVE) 06/30/19 07:45 Urine Ketones Negative (NEGATIVE) 06/30/19 07:45 Urine Blood Negative (NEGATIVE) 06/30/19 07:45 Urine Nitrite Negative (NEGATIVE) 06/30/19 07:45 Urine Bilirubin Negative (NEGATIVE) 06/30/19 07:45 Urine Urobilinogen 0.2 mg/dL (0.2-1.0) 06/30/19 07:45 Ur Leukocyte Esterase Negative (NEGATIVE) 06/30/19 07:45 RPR Titer Nonreactive (NONREACTIVE) 06/29/19 11:30 labs pending Assessment: 06/30/19 13:34 Aox3 no acute distress EENT WNL Full ROM ambulating in the unit withdrawal sx Plan: increase fluids continue detox continue to monitor
[2019-06-30] MEDS: MIRTAZAPINE 15 MG TABLET (FP) PO SCH (22:09)
[2019-06-30] MEDS: THIAMINE HCL 100 MG TABLET (FP) PO SCH (22:10)
[2019-06-30] MEDS: LIDOCAINE PATCH REMOVAL MC SCH (23:12)
[2019-07-01] MEDS: MENTHOL/PHENOL 1 EACH UD MM PRN (01:06)
[2019-07-01] MEDS ORDERED: METHADONE HCL 10 MG TABLET ONE (04:45)
[2019-07-01] MEDS ORDERED: METHADONE HCL 40 MG DISPERSABLE TABLET ONE (04:45)
[2019-07-01] MEDS: chlordiazePOXIDE HCL 25 MG CAPSULE PO SCH ×4 (05:20→22:19)
[2019-07-01] MEDS: METHADONE 80 MG, METHADONE 20 MG PO SCH (05:20)
[2019-07-01] MEDS: LIDOCAINE 5% TOPICAL PATCH TP SCH (10:05)
[2019-07-01] MEDS: FLUoxetine HCL 20 MG CAPSULE (FP) PO SCH (10:05)
[2019-07-01] MEDS: NICOTINE 21 MG/24 HOURS TOPICAL PATCH TD SCH (10:05)
[2019-07-01] MEDS: PRENATAL VITAMINS W/ FOLIC ACID TABLET (FP) PO SCH (10:05)
[2019-07-01] MEDS: GABAPENTIN 400 MG CAPSULE (FP) PO SCH (10:07)
[2019-07-01] MEDS: QUEtiapine FUMARATE 400 MG TABLET PO SCH ×2 (10:07→22:18)
--- NOTE | 2019-07-01 12:05 | PN ---
[facility] CIWA - CIWA Score Nausea/Vomitin-Mild Nausea/No Vomiting Muscle Tremors: 1-None Visible, but [place] Anxiety: 4-Mod. Anxious/Guarded Agitation: 4-Moderately Restless Paroxysmal Sweats: 1-Minimal Palms Moist Orientation: 0-Oriented Tacttile Disturbances: 0-None Auditory Disturbances: 0-None Visual Disturbances: 0-None Headache: 0-None Present CIWA-Ar Total Score: 11 S Progress Note (SOAP) Subjective: Anxiety, restlessness and constipation Objective: 07/01/19 12:00 Vital Signs Temperature 97.7 F 07/01/19 09:25 Pulse Rate 77 07/01/19 09:25 Respiratory Rate 18 07/01/19 09:25 Blood Pressure 108/67 07/01/19 09:25 O2 Sat by Pulse Oximetry (%) Laboratory Tests 06/29/19 06/30/19 11:30 07:45 Urine Color Yellow Urine Appearance Clear Urine pH 7.0 D Ur Specific [place] 1.008 L Urine Protein Negative Urine Glucose (UA) Negative Urine Ketones Negative Urine Blood Negative Urine Nitrite Negative Urine Bilirubin Negative Urine Urobilinogen 0.2 Ur Leukocyte Esterase Negative RPR Titer Nonreactive 07/01/19 12:08 Labs noted Patient is sedated and forgetful Ambulating No acute distress noted Vital signs are stable Assessment: 07/01/19 12:05 Withdrawal symptoms are present Plan: Hold librium dose this morning Citroma prn for constipation Encouraged fluids Continue with detox later when pt is more awake order psych to re-evaluate his psych meds
[2019-07-01] MEDS: IBUPROFEN 400 MG TABLET (FP) PO PRN (13:16)
--- NOTE | 2019-07-01 14:04 | PN ---
[facility] Progress Note Note: hold seroquel this am however pt may have his pm dose. reassess pt again tomorrow morning for any sedation. re-evaluation for psych was ordered.
[2019-07-01] MEDS: DOCUSATE SODIUM 100 MG CAPSULE (FP) PO SCH ×2 (15:14→22:14)
--- NOTE | 2019-07-01 18:44 | PN ---
S Progress Note Note: Psychiatric nurse practitioner note: Delayed noted: Spoke to VANDANA Anderson who stated that patient presented as lethargic, and sedated this morning, therefore his morning medications of seroquel 400mg + Librium 25mg was not given. Java Technical Architect able to observe patient this afternoon and noted that patient was fully awake, ambulating on unit, and socializing with his peers. Medications reviewed. Medications to be adjusted. Will d/c gabapentin 400mg BID. Will order gabapentin 200mg BID. Will d/c seroquel 400mg BID. Will continue Seroquel 400mg HS + Mirtazapine 15 mg HS. Will order Seroquel 200mg daily.
[2019-07-01] MEDS: LIDOCAINE PATCH REMOVAL MC SCH (22:15)
[2019-07-01] MEDS: MIRTAZAPINE 15 MG TABLET (FP) PO SCH (22:17)
[2019-07-01] MEDS: GABAPENTIN 100 MG CAPSULE (FP) PO SCH (22:17)
[2019-07-01] MEDS: THIAMINE HCL 100 MG TABLET (FP) PO SCH (22:21)
[2019-07-02] MEDS ORDERED: chlordiazePOXIDE HCL 10 MG CAPSULE PO PRN
[2019-07-02] MEDS ORDERED: METHADONE HCL 40 MG DISPERSABLE TABLET ONE (04:38)
[2019-07-02] MEDS ORDERED: METHADONE HCL 10 MG TABLET ONE (04:38)
[2019-07-02] MEDS: DOCUSATE SODIUM 100 MG CAPSULE (FP) PO SCH ×3 (05:59→22:27)
[2019-07-02] MEDS: chlordiazePOXIDE HCL 10 MG CAPSULE PO SCH ×4 (05:59→22:27)
[2019-07-02] MEDS: METHADONE 80 MG, METHADONE 20 MG PO SCH (05:59)
[2019-07-02] MEDS: QUEtiapine FUMARATE 200 MG TABLET PO SCH (10:14)
[2019-07-02] MEDS: GABAPENTIN 100 MG CAPSULE (FP) PO SCH ×2 (10:14→22:28)
[2019-07-02] MEDS: FLUoxetine HCL 20 MG CAPSULE (FP) PO SCH (10:14)
[2019-07-02] MEDS: PRENATAL VITAMINS W/ FOLIC ACID TABLET (FP) PO SCH (10:14)
[2019-07-02] MEDS: NICOTINE 21 MG/24 HOURS TOPICAL PATCH TD SCH (10:15)
[2019-07-02] MEDS: LIDOCAINE 5% TOPICAL PATCH TP SCH (10:15)
--- NOTE | 2019-07-02 11:43 | PN ---
[facility] CIWA - CIWA Score Nausea/Vomitin-No Nausea/No Vomiting Muscle Tremors: 2 Anxiety: 2 Agitation: 2 Paroxysmal Sweats: 2 Orientation: 0-Oriented Tacttile Disturbances: 0-None Auditory Disturbances: 0-None Visual Disturbances: 0-None Headache: 0-None Present CIWA-Ar Total Score: 8 S Progress Note (SOAP) Subjective: Back pain, anxious, sweating, tremor, runny nose, watery eyes, diarrhea, restless Objective: 07/02/19 11:41 Last Vital Signs Temp Pulse Resp BP Pulse Ox 97.7 F 75 18 118/57 L 07/02/19 09:22 07/02/19 09:22 07/02/19 09:22 07/02/19 09:22 Laboratory Tests 06/29/19 06/30/19 11:30 07:45 Urine Color Yellow Urine Appearance Clear Urine pH 7.0 D Ur Specific [place] 1.008 L Urine Protein Negative Urine Glucose (UA) Negative Urine Ketones Negative Urine Blood Negative Urine Nitrite Negative Urine Bilirubin Negative Urine Urobilinogen 0.2 Ur Leukocyte Esterase Negative RPR Titer Nonreactive UA reviewed Assessment: 07/02/19 11:42 Withdrawal sxs Plan: Continue detox Encouraged PO water intake
[2019-07-02] MEDS: MAG HYDROX/AL HYDROX/SIMETH 30 ML UNIT-DOSE CUP PO PRN (18:46)
[2019-07-02] MEDS: QUEtiapine FUMARATE 400 MG TABLET PO SCH (22:27)
[2019-07-02] MEDS: LIDOCAINE PATCH REMOVAL MC SCH (22:28)
[2019-07-02] MEDS: THIAMINE HCL 100 MG TABLET (FP) PO SCH (22:28)
[2019-07-02] MEDS: MIRTAZAPINE 15 MG TABLET (FP) PO SCH (22:28)
[2019-07-03] MEDS ORDERED: METHADONE HCL 40 MG DISPERSABLE TABLET ONE (04:50)
[2019-07-03] MEDS ORDERED: METHADONE HCL 10 MG TABLET ONE (04:50)
[2019-07-03] MEDS: METHADONE 80 MG, METHADONE 20 MG PO SCH (06:18)
[2019-07-03] MEDS: DOCUSATE SODIUM 100 MG CAPSULE (FP) PO SCH ×3 (06:19→22:21)
[2019-07-03] MEDS: chlordiazePOXIDE HCL 10 MG CAPSULE PO SCH ×2 (06:19→17:58)
[2019-07-03] MEDS ORDERED: FUROSEMIDE 20 MG TABLET (FP) PO ONE (09:59)
--- NOTE | 2019-07-03 10:01 | PN ---
BHS Progress Note Note: pt c/o dry itchy feet and swelling. some swelling noted; encouraged to keep legs elevated while in bed. encouraged to stay away salty foods, pt in agreement lasix 20mg x one tinactin cream
[2019-07-03] MEDS: PRENATAL VITAMINS W/ FOLIC ACID TABLET (FP) PO SCH (10:17)
[2019-07-03] MEDS: FLUoxetine HCL 20 MG CAPSULE (FP) PO SCH (10:17)
[2019-07-03] MEDS: QUEtiapine FUMARATE 200 MG TABLET PO SCH (10:17)
[2019-07-03] MEDS: GABAPENTIN 100 MG CAPSULE (FP) PO SCH ×2 (10:17→22:18)
[2019-07-03] MEDS: NICOTINE 21 MG/24 HOURS TOPICAL PATCH TD SCH (10:18)
[2019-07-03] MEDS: LIDOCAINE 5% TOPICAL PATCH TP SCH (10:18)
[2019-07-03] MEDS: TOLNAFTATE 1% CREAM 15 GM TUBE TP SCH ×2 (11:05→22:19)
--- NOTE | 2019-07-03 11:54 | PN ---
[facility] CIWA - CIWA Score Nausea/Vomitin-Mild Nausea/No Vomiting Muscle Tremors: 1-None Visible, but [place] Anxiety: 2 Agitation: 2 Paroxysmal Sweats: No Perspiration Orientation: 0-Oriented Tacttile Disturbances: 0-None Auditory Disturbances: 0-None Visual Disturbances: 0-None Headache: 1-Very Mild CIWA-Ar Total Score: 7 S Progress Note (SOAP) Subjective: alert,irritable,anxious,interrupted sleep,painin the body Objective: 07/03/19 11:52 Vital Signs Temperature 97.9 F 07/03/19 09:02 Pulse Rate 69 07/03/19 09:02 Respiratory Rate 16 07/03/19 09:02 Blood Pressure 111/71 07/03/19 09:02 O2 Sat by Pulse Oximetry (%) Assessment: 07/03/19 11:52 withdrawal symptom Plan: continue detox librium regimen,discharge in am
[2019-07-03] MEDS: QUEtiapine FUMARATE 400 MG TABLET PO SCH (22:18)
[2019-07-03] MEDS: MIRTAZAPINE 15 MG TABLET (FP) PO SCH (22:18)
[2019-07-03] MEDS: THIAMINE HCL 100 MG TABLET (FP) PO SCH (22:19)
[2019-07-03] MEDS: LIDOCAINE PATCH REMOVAL MC SCH (22:22)
[2019-07-04] MEDS ORDERED: METHADONE HCL 10 MG TABLET ONE (04:35)
[2019-07-04] MEDS ORDERED: METHADONE HCL 40 MG DISPERSABLE TABLET ONE (04:36)
[2019-07-04] MEDS ORDERED: chlordiazePOXIDE HCL 10 MG CAPSULE PO ONE (05:00)
[2019-07-04] MEDS: METHADONE 80 MG, METHADONE 20 MG PO SCH (05:50)
[2019-07-04] MEDS: DOCUSATE SODIUM 100 MG CAPSULE (FP) PO SCH ×3 (05:51→22:43)
[2019-07-04] MEDS: LIDOCAINE 5% TOPICAL PATCH TP SCH (10:44)
[2019-07-04] MEDS: GABAPENTIN 100 MG CAPSULE (FP) PO SCH ×2 (10:44→22:41)
[2019-07-04] MEDS: QUEtiapine FUMARATE 200 MG TABLET PO SCH (10:44)
[2019-07-04] MEDS: FLUoxetine HCL 20 MG CAPSULE (FP) PO SCH (10:44)
[2019-07-04] MEDS: NICOTINE 21 MG/24 HOURS TOPICAL PATCH TD SCH (10:44)
[2019-07-04] MEDS: PRENATAL VITAMINS W/ FOLIC ACID TABLET (FP) PO SCH (10:44)
--- NOTE | 2019-07-04 10:50 | PN ---
[facility] CIWA - CIWA Score Nausea/Vomitin-No Nausea/No Vomiting Muscle Tremors: 2 Anxiety: 2 Agitation: 2 Paroxysmal Sweats: No Perspiration Orientation: 0-Oriented Tacttile Disturbances: 0-None Auditory Disturbances: 0-None Visual Disturbances: 0-None Headache: 0-None Present CIWA-Ar Total Score: 6 BHS Progress Note (SOAP) Subjective: irritable sweats Objective: 07/04/19 12:23 Vital Signs Temperature 98.2 F 07/04/19 05:00 Pulse Rate 75 07/04/19 05:00 Respiratory Rate 18 07/04/19 05:00 Blood Pressure 109/65 07/04/19 05:00 O2 Sat by Pulse Oximetry (%) aaox3 ambulating no acute distress Assessment: 07/04/19 12:24 withdrawals still noted pt is at risk of relapse and has a p/u scheduled for tomorrow to long to rehab; pt will remain until tomorrow. Plan: d/c in am will have a p/u scheduled to go to rehab.
[2019-07-04] MEDS: TOLNAFTATE 1% CREAM 15 GM TUBE TP SCH ×2 (11:49→22:43)
[2019-07-04] MEDS: MENTHOL/PHENOL 1 EACH UD MM PRN (14:40)
[2019-07-04] MEDS: SODIUM CHLORIDE NASAL SPRAY 44 ML BOTTLE NS PRN ×2 (15:36→22:42)
[2019-07-04] MEDS: QUEtiapine FUMARATE 400 MG TABLET PO SCH (22:41)
[2019-07-04] MEDS: MIRTAZAPINE 15 MG TABLET (FP) PO SCH (22:41)
[2019-07-04] MEDS: THIAMINE HCL 100 MG TABLET (FP) PO SCH (22:41)
[2019-07-04] MEDS: LIDOCAINE PATCH REMOVAL MC SCH (22:43)
[2019-07-05] MEDS: MENTHOL/PHENOL 1 EACH UD MM PRN (03:14)
[2019-07-05] MEDS ORDERED: METHADONE HCL 10 MG TABLET ONE (04:56)
[2019-07-05] MEDS ORDERED: METHADONE HCL 40 MG DISPERSABLE TABLET ONE (04:57)
[2019-07-05] MEDS: METHADONE 80 MG, METHADONE 20 MG PO SCH (06:20)
[2019-07-05] MEDS: DOCUSATE SODIUM 100 MG CAPSULE (FP) PO SCH (06:20)
--- NOTE | 2019-07-05 08:36 | DS ---
[facility] Detox Discharge Summary Admission Date: 06/29/19 Discharge Date: 07/05/19 - History Present History: Alcohol Dependence, Cannabis Dependence, Cocaine Dependence, Pcp Dependence, MMTP - Physical Exam Results Vital Signs: Vital Signs Temperature 99.5 F 07/04/19 21:47 Pulse Rate 88 07/04/19 21:47 Respiratory Rate 18 07/05/19 03:30 Blood Pressure 126/69 07/04/19 21:47 O2 Sat by Pulse Oximetry (%) Pertinent Admission Physical Exam Findings: Vital Signs Temperature 99.5 F 07/04/19 21:47 Pulse Rate 88 07/04/19 21:47 Respiratory Rate 18 07/05/19 03:30 Blood Pressure 126/69 07/04/19 21:47 O2 Sat by Pulse Oximetry (%) Laboratory Tests 06/29/19 06/30/19 11:30 07:45 Urine Color Yellow Urine Appearance Clear Urine pH 7.0 D Ur Specific Grace 1.008 L Urine Protein Negative Urine Glucose (UA) Negative Urine Ketones Negative Urine Blood Negative Urine Nitrite Negative Urine Bilirubin Negative Urine Urobilinogen 0.2 Ur Leukocyte Esterase Negative RPR Titer Nonreactive aaox3 ambulating no acute distress - Treatment Hospital Course: Detox Protocol Followed, Detoxed Safely, Responded well, Discharged Condition Good, Rehab Referral Accepted Patient has Accepted a Rehab Referral to: referred to [facility] - Medication Discharge Medications: Ambulatory Orders Mirtazapine 15 mg PO HS 12/23/18 Quetiapine Fumarate [Seroquel -] 400 mg PO BID 12/23/18 Gabapentin [Neurontin -] 400 mg PO BID capsule 03/02/19 Clonidine HCl 0.2 mg PO TID 06/28/19 Fluoxetine HCl [Prozac -] 20 mg PO DAILY 06/28/19 - Diagnosis (1) Alcohol dependence with uncomplicated withdrawal Current Visit: Yes Status: Chronic (2) Schizophrenia Current Visit: Yes Status: Acute (3) Substance-induced sleep disorder Current Visit: Yes Status: Acute (4) Bipolar disorder Current Visit: Yes Status: Chronic (5) History of cocaine dependence Current Visit: Yes Status: Chronic (6) Methadone maintenance therapy patient Current Visit: Yes Status: Chronic (7) Nicotine dependence Current Visit: Yes Status: Chronic Qualifiers: Nicotine product type: cigarettes Substance use status: uncomplicated Qualified Code(s): F17.210 - Nicotine dependence, cigarettes, uncomplicated (8) Phencyclidine abuse Current Visit: Yes Status: Chronic (9) Sedative, hypnotic or anxiolytic dependence with withdrawal, uncomplicated Current Visit: Yes Status: Chronic (10) Substance induced mood disorder Current Visit: No Status: Acute (11) Substance-induced sleep disorder Current Visit: No Status: Acute (12) ADHD (attention deficit hyperactivity disorder) Current Visit: No Status: Chronic Qualifiers: Attention deficit-hyperactivity disorder type: unspecified Qualified Code(s ): F90.9 - Attention-deficit hyperactivity disorder, unspecified type (13) Bipolar disorder Current Visit: No Status: Chronic Qualifiers: Active/Remission status: remission status unspecified Qualified Code(s): F31.9 - Bipolar disorder, unspecified (14) Cannabis dependence Current Visit: No Status: Chronic (15) Cannabis dependence Current Visit: No Status: Chronic (16) Chronic back pain Current Visit: No Status: Chronic Qualifiers: Back pain location: low back pain Back pain laterality: unspecified Sciatica presence: without sciatica Qualified Code(s): M54.5 - Low back pain; G89.29 - Other chronic pain (17) Depression Current Visit: No Status: Chronic Qualifiers: Depression Type: unspecified Qualified Code(s): F32.9 - Major depressive disorder, single episode, unspecified (18) IVDU (intravenous drug user) Current Visit: No Status: Chronic (19) Insomnia Current Visit: No Status: Chronic Qualifiers: Insomnia type: unspecified Qualified Code(s): G47.00 - Insomnia, unspecified (20) Substance induced mood disorder Current Visit: No Status: Chronic (21) Schizoaffective disorder Current Visit: No Status: Suspected (22) Hepatitis C Current Visit: Yes Status: Chronic Qualifiers: Viral hepatitis chronicity: chronic Hepatic coma status: without hepatic coma Qualified Code(s): B18.2 - Chronic viral hepatitis C - AMA Did Patient Leave Against Medical Advice: No
[2019-07-05 08:39] VITALS: BP 107/63; PULSE 67; TEMP 98.1
[2019-07-05] MEDS: NICOTINE 21 MG/24 HOURS TOPICAL PATCH TD SCH (11:14)
[2019-07-05] MEDS: PRENATAL VITAMINS W/ FOLIC ACID TABLET (FP) PO SCH (11:15)
[2019-07-05] MEDS: QUEtiapine FUMARATE 200 MG TABLET PO SCH (11:15)
[2019-07-05] MEDS: LIDOCAINE 5% TOPICAL PATCH TP SCH (11:15)
[2019-07-05] MEDS: TOLNAFTATE 1% CREAM 15 GM TUBE TP SCH (11:16)
== END 2019-07-05 11:11 | disposition home or self-care (01) | DRG 773 ==
LOC: YASAS 09:27 → Y6N 10:57
PROVIDERS: ADMIT Allergy & Immunology; ATTEND Allergy & Immunology
PROC: HZ2ZZZZ Detoxification Services for Substance Abuse Treatment (ICD-10-PCS; principal; 2019-06-29)
DX: F10.230 Alcohol dependence with withdrawal, uncomplicated (principal); F11.20 Opioid dependence, uncomplicated; F13.230 Sedative, hypnotic or anxiolytic dependence with withdrawal, uncomplicated; F14.20 Cocaine dependence, uncomplicated; F12.20 Cannabis dependence, uncomplicated; F16.10 Hallucinogen abuse, uncomplicated; F17.210 Nicotine dependence, cigarettes, uncomplicated; F25.9 Schizoaffective disorder, unspecified; F19.24 Other psychoactive substance dependence with psychoactive substance-induced mood disorder; F19.282 Other psychoactive substance dependence with psychoactive substance-induced sleep disorder; F31.9 Bipolar disorder, unspecified; F90.9 Attention-deficit hyperactivity disorder, unspecified type; R00.1 Bradycardia, unspecified; M54.5 Low back pain; G89.29 Other chronic pain; G62.9 Polyneuropathy, unspecified; G47.00 Insomnia, unspecified; R63.4 Abnormal weight loss; Z86.19 Personal history of other infectious and parasitic diseases; Z86.69 Personal history of other diseases of the nervous system and sense organs; Z91.013 Allergy to seafood; Z91.038 Other insect allergy status; Z56.0 Unemployment, unspecified; Z59.0 Homelessness
CPT/HCPCS: 36415; 81003; 86593